=== PATIENT | female | born 1935 | race Caucasian/White ===

== ENCOUNTER → 2018-06-18 | Day surgery (SDC) | payer MEDICARE, BC ==
[2018-06-17 16:21] LABS: BASOPHILS # (AUTO) 0.1 (0.0-0.1); BASOPHILS % 0.8 % (0.0-1.0); EOSINOPHILS # (AUTO) 0.2 (0.0-0.4); EOSINOPHILS % 3.4 % (0.0-6.0); HEMATOCRIT 41.2 % (34.2-44.1); HEMOGLOBIN 13.6 g/dL (12.0-16.0); LYMPHOCYTES # (AUTO) 2.7 (1.0-3.2); LYMPHOCYTES % 37.3 % (18.0-39.1); MEAN CORPUSCULAR HEMOGLOBIN 32.1 pg (28-32); MEAN CORPUSCULAR VOLUME 97.2 fL (81-99); MONOCYTES # (AUTO) 0.6 (0.2-0.8); MONOCYTES % 8.5 % (4.4-11.3); NEUTROPHILS # (AUTO) 3.5 (2.1-6.9); NEUTROPHILS % 49.6 % (38.7-80.0); PLATELET COUNT 247 x10e3/uL (140-360); RED BLOOD COUNT 4.24 x10e6/uL (3.6-5.1); RED CELL DISTRIBUTION WIDTH 12.6 % (11.7-14.4)
[~2018-06-18] MED LIST: ADVAIR 100-501 EACH INH; ASPIR 8181 MG PO; CALCIUM ACETAT667 MG PO; CO Q-10100 MG PO; LIDOCAINE HCL 2% LOCAL INJ 5 ML SDV VIAL INJ ONE; LIPITOR20 MG PO; MAGNESIUM OXID400 MG PO; METOPROLOL SUCC25 MG PO; MULTI-VITAMIN1 EACH PO; PEPCID AC20 MG PO; POTASSIUM GLUC500 GM PO; PRILOSEC OTC20 MG PO; PROPOFOL IV EMULSION 10 MG/ML 20 ML VIAL ONE; RESTASIS1 EACH OP; SPIRIVA18 MCG INH; VIT B12 PO; VIT D3 PO; ZYRTEC10 MG PO
--- OUTSIDE RECORDS SUMMARY | 2018-06-18 05:47 | XMS REPORT | Clinical Summary ---
Author Author MELQUIADES Lucky Pai Organization [facility] Lucky Pai Address Unknown Phone Unavailable Care Team Providers Care Annealing Operator Name Role Phone Delfin Camryn PCP Allergies Comments Active Allergy Reactions Severity Noted Date Codeine 08/18/2014 Medications End Date Status Medication Sig Dispensed Refills Start Date Active esomeprazole (NEXIUM) 40 Take 40 mg by 0 MG capsule mouth daily. Active CALCIUM CARBONATE/VITAMIN Take by mouth 0 D3 (CALTRATE 600 + D daily. 2 ORAL) tablets Active aspirin 81 MG EC tablet Take 81 mg by 0 mouth daily. Active omega-3 fatty Take by mouth 0 acids-vitamin E 1,000 mg daily. Cap Active cetirizine (ZYRTEC) 10 MG Take 10 mg by 0 tablet mouth daily as needed for Allergies. Active multivitamin per tablet Take 1 tablet 0 by mouth daily. Active b complex vitamins Take 1 0 capsule capsule by mouth daily. Active ERGOCALCIFEROL, VITAMIN Take by mouth 0 D2, (VITAMIN D2 ORAL) daily. Active Missing or Non-Formulary Align 0 Medication probiotic- daily Active Problems Problem Noted Date Former smoker: quit 01/201409/15/2014 History of gastroesophageal reflux (GERD) 09/15/2014 History of hyperlipidemia 09/15/2014 S/P AAA repair in 200709/15/2014 Chronic back pain 09/15/2014 Leukocytosis 09/15/2014 Volume overload 09/15/2014 Aortic stenosis: S/P AVR with # 21 stj trifecta tisue valve on 09/01/14 09/01/2014 CAD (coronary artery disease) 08/31/2014 Encounters Care Team Description Date Type Specialty Roland Pacheco MD Chronic obstructive pulmonary disease, unspecified COPD type (HCC) 03/06/2018 Hospital Cardiology Encounter Roland Pacheco MD Chronic obstructive pulmonary disease, unspecified COPD type (HCC) (Primary Dx) 03/01/2018 Outside Orders Central Scheduling after 06/17/2017 Family History Medical History Relation Name Comments Cancer Father Heart disease Mother Relation Name Status Comments Brother suicide (Age 50) Father Mother CHF (Age 80) Sister Breast cancer (Age 52) Social History Date Tobacco Use Types Packs/Day Years Used Former Smoker 2 40 Alcohol Use Drinks/Week oz/Week Comments Yes sociall Sex Assigned at Date Recorded Not on file Industry Job Start Date Occupation Not on file Not on file Not on file Travel End Travel History Travel Start No recent travel history available. Last Filed Vital Signs Time Taken Vital Sign Reading 03/06/2018 4:06 PM CDT Blood Pressure 162/60 03/06/2018 4:06 PM CDT Pulse 99 - Temperature - 03/06/2018 4:04 PM CDT Respiratory Rate 15 - Oxygen Saturation - - Inhaled Oxygen - Concentration 03/06/2018 3:00 PM CDT Weight 75.3 kg (166 lb) - Height - 03/06/2018 3:00 PM CDT Body Mass Index 29.41 Plan of Treatment Health Maintenance Due Date Last Done Comments INFLUENZA VACCINE 04/08/2018 Implants Device Identifier Shelf Expiration Date Model / Serial / Lot Implanted Type Area Manufactur er 05/08/2019 [id number] / / [id number] Sternal Zipfix,With Needle Sterile Cardiovasc N/A: Chest SYNTHES Pack Of 20 - [id number] [employer] Implanted: Qty: 1 on 09/01/2014 by Castillo Lopez MD 04/07/2019 [id number] / / [id number] [place],Ptfe 1 X 6" - [id number] Graft/Patc N/A: Chest BARD Implanted: Qty: 1 on 09/01/2014 by h VASCULAR Castillo Lopez MD 03/28/2016 TF-[id number] / [id number] / Valve,Trifecta 21mm Tissue Aortic Valves N/A: Heart ST SAJI Supra Annular Stented Titanium Strl MEDICAL - [id number] Implanted: Qty: 1 on 09/01/2014 by Castillo Lopez MD Procedures Comments Procedure Name Priority Date/Time Associated Diagnosis PERIPHERAL VASCULAR 03/07/2018 REPORT - SCAN 8:30 AM CDT STRESS ECHO W/ TRACING Routine 03/06/2018 Chronic obstructive W/O CONTRAST 3:07 PM CDT pulmonary disease, unspecified COPD type (HCC) after 06/17/2017 Results * PERIPHERAL VASCULAR REPORT - SCAN (03/07/2018 8:30 AM CDT) Narrative Performed At * Stress Echo with Tracing without Contrast (03/06/2018 3:07 PM CDT) Ejection Fraction [facility] Narrative Performed At Stress Echocardiography Report [facility] Demographics [facility] Patient Name Lizz VALERIO of Study 03/06/2018 VICENTE [id number] Female Visit Number [id number] Room Number Number Date of Birth1935Referring Physician Junior Meyer Age82 year(s)Disk Recoater Juan Pablo Ham Interpreting Pooja Anders, Physician Fellow SAMRA Giron Procedure Type of Study Stress procedure:STRESS ECHO/PHARM W/DOP&TRAC (Routine) Indications:Acute Chest Pain/ Suspected CAD. Clinical History AVR 09/01/2014 TRIFECTA 21 MM AAA REPAIR 2007 Contrast Medium: Definity. Height: 63 inches Weight: 75.3 kg (166 lbs) BSA: 1.79 m^2 BMI: 29.41 kg/m^2 HR: 69 bpm BP: 118/54 mmHg Rest ECG NSR Standing HR:73 bpmStanding BP:118/54 mmHg Stress Stress Type: Pharmacologic Peak HR: 144 bpm HR BP Product: [id number] Peak BP: 118/54 mmHg Predicted HR: 139 bpm % of predicted HR: 104 Test Duration: 7:35 min Reason for Termination: Target heart rate Stress Interpretation STRESS ECHO. At rest there is normal wall motion with globally preserved ejection fraction There is augmentation of contractility in all segments at mid and peak stress Negative stress echocardiogram. Results Global LVEF (rest): Normal (LVEF >50%) Global LVEF (stress): Hyperkinetic (LVEF >70%) ECG ST elevation in aVR, ST depressions in the high lateral and precordial leads Arrhythmias Occasional PVC's Symptoms Sensation of needing to burp, no chest pain, indigestion/heart burn, or dyspnea. Signature Procedure Note Interface, External Ris In - 03/06/2018 9:16 PM CDT Stress Echocardiography Report Demographics Patient Name CHRISTIANO VALERIO Date of Study 03/06/2018 VICENTE Gender Female Visit Number [id number] Race Unknown Room Number Number Date of 1935 Referring Physician Junior Meyer Age 82 year(s) Disk Recoater Juan Pablo Ham Interpreting Pooja Anders, Physician Fellow SAMRA Giron Procedure Type of Study Stress procedure:STRESS ECHO/PHARM W/DOP&TRAC (Routine) Indications:Acute Chest Pain/ Suspected CAD. Clinical History AVR 09/01/2014 TRIFECTA 21 MM AAA REPAIR 2007 Contrast Medium: Definity. Height: 63 inches Weight: 75.3 kg (166 lbs) BSA: 1.79 m^2 BMI: 29.41 kg/m^2 HR: 69 bpm BP: 118/54 mmHg Rest ECG NSR Standing HR:73 bpmStanding BP:118/54 mmHg Stress Stress Type: Pharmacologic Peak HR: 144 bpm HR BP Product: [id number] Peak BP: 118/54 mmHg Predicted HR: 139 bpm % of predicted HR: 104 Test Duration: 7:35 min Reason for Termination: Target heart rate Stress Interpretation STRESS ECHO. At rest there is normal wall motion with globally preserved ejection fraction There is augmentation of contractility in all segments at mid and peak stress Negative stress echocardiogram. Results Global LVEF (rest): Normal (LVEF >50%) Global LVEF (stress): Hyperkinetic (LVEF >70%) ECG ST elevation in aVR, ST depressions in the high lateral and precordial leads Arrhythmias Occasional PVC's Symptoms Sensation of needing to burp, no chest pain, indigestion/heart burn, or dyspnea. Signature Performing Organization Address City/State/Zipcode Phone Number [facility] after 06/17/2017 Insurance Payer Benefit Subscriber ID Type Phone Address Plan / Group MEDICARE MEDICARE A xxxxxxxxxx Medicare B BLUE CROSS/BLUE SHIELD BCBS xxxxxxxxxxxx PPO [phone] [address] [place] [address] ID OS Advance Directives Patient has advance care planning documents, and code status on file. For more i nformation, please contact: [facility] [address] [place] [address] Date Inactivated Comments Code Status Date Activated 09/25/2014 1:45 PM Full Code 09/01/2014 9:53 AM This code status was determined by: Patient 09/01/2014 9:53 AM Full Code 08/31/2014 6:06 PM This code status was determined by: Patient 08/31/2014 6:06 PM Full Code 08/31/2014 9:37 AM This code status was determined by: Patient
--- OUTSIDE RECORDS SUMMARY | 2018-06-18 05:49 | XMS REPORT | Continuity of Care Document ---
Author Author [facility] Interface Address Unknown Phone Unavailable Problems Problem Status Onset Date Classification Date Reported Comments Source DX: K30/R14.2/E66.3/Z71.3 Active 02/18/2018 [facility] I26.99 Active 12/18/2017 [facility] M79.89 Active 12/13/2017 [facility] Abnormal findings on diagnostic imaging of other parts of digestive tract 08/18/2017 11/21/2017 [facility] DX: R10.32=LEFT LOWER QUADRANT PAIN, R93 Active 08/10/2017 [facility] SIGMOID DIVERTICULITIS Active 07/04/2017 [facility] BACK PAIN Active 07/04/2017 [facility] ACUTE BRONCHITIS WITH COPD Active 04/27/[address] [facility] [address] SENT- SOB Active 04/27/2017 [facility] DX; ROUTINE SCREENING Active 08/15/2016 [facility] L HAND WEAKNESS Active 04/15/2016 [facility] ARM PAIN Active 04/15/2016 [facility] RIGHT CALF PAIN Active 03/23/2016 [facility] UNK Active 09/30/2014 [facility] 786.2/518.0 Active 09/30/2014 [facility] 518.0 ATELECTASIS Active 09/29/2014 [facility] CCL/11AM/R Active 08/10/2014 [facility] ROUTINE Active 06/16/2014 [facility] 441.4 AAA, 447.9 CAROTID ARTERY DISEASE Active 03/07/2013 [facility] Osteopenia Active Problem 05/07/2018 [facility] Depression, unspecified depression type Active Problem 05/07/2018 [facility] Prediabetes Active Problem 05/07/2018 [facility] Chronic obstructive pulmonary disease, unspecified COPD type Active Problem 05/07/2018 [facility] Gastroesophageal reflux disease, esophagitis presence not specified Active Problem 05/07/2018 [facility] Bilateral carotid artery disease Active Problem 05/07/2018 [facility] History of abdominal aortic aneurysm Active Problem 05/07/2018 [facility] History of aortic valve repair Active Problem 05/07/2018 [facility] Dry eyes Active Problem 05/07/2018 [facility] Dependent edema Active Problem 05/07/2018 [facility] Rheumatoid arthritis Active Problem 05/07/2018 [facility] Esophageal reflux Active Problem 05/07/2018 [facility] Nicotine dependence in remission Active Problem 05/07/2018 [facility] Aortic aneurysm Active Problem 05/07/2018 [facility] Other and unspecified hyperlipidemia Active Problem 05/07/2018 [facility] Systolic murmur Active Problem 05/07/2018 [facility] Vitamin D deficiency Active Problem 05/07/2018 [facility] Carotid artery disease Active Problem 05/07/2018 [facility] Elevated brain natriuretic peptide level Active Diagnosis 05/01/2017 [facility] Abnormality of heart beat Active Diagnosis 05/01/2017 [facility] Tachycardia Active Diagnosis 05/01/2017 [facility] Orthostatic hypotension Active Diagnosis 05/01/2017 [facility] Hypertriglyceridemia Active Problem 05/07/2018 [facility] Shortness of breath Active Diagnosis 05/11/2017 [facility] Bronchitis Active Diagnosis 05/07/2018 [facility] H/O aortic valve replacement Active Problem 05/07/2018 [facility] Osteopenia, unspecified location Active Diagnosis 10/18/2016 [facility] Painful urination Active Diagnosis 10/18/2016 [facility] History of pulmonary embolism Active Problem 05/07/2018 [facility] Coronary artery disease involving apache coronary artery of apache heart without angina pectoris Active Problem 05/07/2018 [facility] Other osteoarthritis involving multiple joints Active Problem 05/07/2018 [facility] Other pulmonary embolism without acute cor pulmonale, unspecified chronicity Active Diagnosis 09/04/2017 [facility] Cough Active Diagnosis 02/22/2017 [facility] Chronic seasonal allergic rhinitis, unspecified trigger Active Diagnosis 08/16/2017 [facility] Leg swelling Active Diagnosis 12/28/2017 [facility] Hematoma Active Diagnosis 12/28/2017 [facility] Other acute pulmonary embolism without acute cor pulmonale Active Diagnosis 08/16/2017 [facility] Hospital discharge follow-up Active Diagnosis 05/11/2017 [facility] Abnormal ultrasound of carotid artery Active Diagnosis 03/23/2018 [facility] Hyperlipemia Active Problem 12/10/2014 [facility] Osteopenia Active Problem 12/10/2014 [facility] AAA Active Problem 06/16/2014 [facility] GERD Active Problem 12/10/2014 [facility] Carotid artery disease Active Problem 12/10/2014 [facility] SOB Active Diagnosis 06/16/2014 [facility] Vitamin d deficiency Active Problem 12/10/2014 [facility] Acute bronchitis Active Diagnosis 06/16/2014 [facility] Cough Active Diagnosis 06/16/2014 [facility] Systolic murmur Active Problem 12/10/2014 [facility] Encounter for screening mammogram for malignant neoplasm of breast Active Diagnosis 06/16/2014 [facility] History of abdominal aortic aneurysm Active Problem 04/26/2016 [facility] History of repair of aneurysm of abdominal aorta Active Problem 04/26/2016 [facility] H/O aortic valve replacement Active Problem 04/26/2016 [facility] BMI 27.0-27.9,adult Active Diagnosis 08/18/2015 [facility] 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 Active Diagnosis 08/18/2015 [facility] BSOM Active Diagnosis 08/18/2015 [facility] Normal body mass index Active Diagnosis 08/04/2016 [facility] Aortic aneurysm Active Problem 12/10/2014 [facility] Former smoker Active Problem 12/10/2014 [facility] URI Active Diagnosis 12/10/2014 [facility] Acute exacerbation of chronic obstructive pulmonary disease Active Diagnosis 12/10/2014 [facility] Aortic stenosis Active Diagnosis 08/06/2014 [facility] Routine general medical examination at a health care facility Active Diagnosis 07/02/2014 [facility] Menopausal and postmenopausal disorder Active Diagnosis 07/02/2014 [facility] Right knee pain Active Diagnosis 03/28/2016 [facility] Right calf pain Active Diagnosis 03/28/2016 [facility] Lung crackles Active Diagnosis 03/28/2016 [facility] Radial nerve palsy, left Active Diagnosis 04/26/2016 [facility] Osteoarthritis, knee Active Diagnosis 03/29/2016 [facility] Sciatica Active Diagnosis 03/29/2016 [facility] History of aortic aneurysm Active Diagnosis 09/15/2016 [facility] BMI 29.0-29.9,adult Active Diagnosis 08/04/2016 [facility] Routine general medical examination at a health care facility Active Diagnosis 08/04/2016 [facility] Menopausal and postmenopausal disorder Active Diagnosis 08/04/2016 [facility] Aortic valve disorder Resolved Problem 12/28/2017 [facility] COPD - Chronic obstructive pulmonary disease Resolved Problem 12/28/2017 [facility] Hypertension Resolved Problem 12/28/2017 [facility] Deviated septum Resolved Problem 12/28/2017 [facility] RA (<span ID="[id number]">Confirmed</span>) Resolved Problem 12/28/2017 [facility] Overweight 11/21/2017 [facility] Body mass index 29.0-29.9, adult 11/21/2017 [facility] Dietary counseling and surveillance 11/21/2017 [facility] Left lower quadrant pain 11/21/2017 [facility] 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 11/21/2017 [facility] Atelectasis 11/21/2017 [facility] Fatty liver, not elsewhere classified 11/21/2017 [facility] Atherosclerotic heart disease of apache coronary artery without angina pectoris 11/21/2017 [facility] Functional disorders of polymorphonuclear neutrophils 11/21/2017 [facility] Diverticulosis of large intestine without perforation or abscess without bleeding 11/21/2017 [facility] Acquired absence of both cervix and uterus 11/21/2017 [facility] Collapsed vertebra, not elsewhere classified, thoracic region, initial encounter for fracture 11/21/2017 [facility] Other specified disorders of bone density and structure, unspecified site 11/21/2017 [facility] Other spondylosis, thoracic region 11/21/2017 [facility] Unspecified atherosclerosis 11/21/2017 [facility] SCREEN MAMMOGRAM NEC Active [facility] ABDOM AORTIC ANEURYSM Active [facility] ARTERIAL DISEASE NOS Active [facility] PULMONARY COLLAPSE Active [facility] COUGH Active [facility] PAIN IN RIGHT LOWER LEG Active [facility] 491.21 Active [facility] OBS CHR BRONC W(AC) EXAC Active [facility] ORTHOPNEA Active [facility] WEAKNESS Active [facility] CHRONIC OBSTRUCTIVE PULMON DISEASE W ACU Active [facility] ENCNTR SCREEN MAMMOGRAM FOR MALIGNANT NE Active [facility] DVTRCLI OF LG INT W/O PERFORATION OR ABS Active [facility] LEFT LOWER QUADRANT PAIN Active [facility] LOCALIZED SWELLING, MASS AND LUMP, LEFT Active [facility] OTHER PULMONARY EMBOLISM WITHOUT ACUTE C Active [facility] FUNCTIONAL DYSPEPSIA Active [facility] ERUCTATION Active [facility] DIETARY COUNSELING AND SURVEILLANCE Active [facility] Medications Medication Details Route Status Patient Instructions Ordering Provider Order Date Source Levaquin 1 tablet Orally Active 500 mg Orally once a day Ghebranious 04/30/2018 [facility] Amoxicillin-Pot Clavulanate 1 tablet Orally Active 875-125 MG Orally every 12 hrs Gagan 12/13/2017 [facility] Omnipaque 300 100 mL, Route: IV, Drug Form: ZAINA INFANTE, Start date: 08/15/17 12:00:00 [employer], Duration: 1 doses or timesNotes: (Same as:Omnipaque 300). WASTE: F/P - Black; E - [employer] Trash Bin Active 08/15/2017 [facility] Spiriva HandiHaler 1 capsule Inhalation Active 18 MCG Inhalation Once a day Josiasebranious 07/27/2017 [facility] Spiriva HandiHaler 1 capsule Inhalation Active 18 MCG Inhalation Once a day Luis Fernando Cruz 07/27/2017 [facility] Cipro 500 mg, 1 tab, Route: PO, Drug form: TAB, [id number], Start date: 07/06/17 16:00:00 [employer], Duration: 3 day, Stop date: 07/09/17 4:00:00 [employer], ABX Indication: Intra-abdominal InfectionNotes: May interfere w/enteral feedings - Take 1 hr before or 2 hrs after antacids, dairy pdt & minerals. On empty stomach. Inactive 07/06/2017 [facility] Flagyl 500 mg, 1 tab, Route: PO, Drug form: TAB, [id number], Start date: 07/06/17 16:00:00 [employer], Duration: 2 day, Stop date: 07/08/17 8:00:00 [employer], ABX Indication: Intra-abdominal InfectionNotes: (Same as: Flagyl) Take with food/ avoid alcohol Inactive 07/06/2017 [facility] Metronidazole 500 MG Oral Tablet [Flagyl] 500 mg=1 tab, PO, Q8H, X 7 day, # 21 tab, 0 Refill(s), Pharmacy: [facility]/pharmacy #[id number] Active 07/06/2017 [facility] Ciprofloxacin 500 MG Oral Tablet [Cipro] 500 mg=1 tab, PO, Q12H, X 7 day, # 14 tab, 0 Refill(s), Pharmacy: [facility]/pharmacy #[id number] Active 07/06/2017 [facility] Phenergan 12.5 mg, 1 tab, Route: PO, Drug form: TAB, Q6H, Dosing Weight 76.534, kg, PRN Nausea & Vomiting, Start date: 07/05/17 14:16:00 [employer], Duration: 30 day, Stop date: 08/04/17 14:15:00 CSTNotes: (Same as: Phenergan) No Longer Active 07/05/2017 [facility] metoprolol extended release 25 mg, 1 tab, Route: PO, Drug form: ERTAB, Daily, Start date: 07/05/17 9:00:00 [employer], Duration: 30 day, Stop date: 08/03/17 9:00:00 CSTNotes: (Same as: Toprol XL) Do Not Crush No Longer Active 07/05/2017 [facility] Escitalopram 10 mg, 1 tab, Route: PO, Drug form: TAB, Daily, Dosing Weight 76.534, kg, Start date: 07/05/17 9:00:00 [employer], Duration: 30 day, Stop date: 08/03/17 9:00:00 CSTNotes: (Same as: Lexapro) No Longer Active 07/05/2017 [facility] Cipro 400 mg, 200 mL, Route: IVPB, Drug form: INJ, [id number], Dosing Weight 77, kg, Start date: 07/05/17 3:00:00 [employer], Duration: 5 day, Stop date: 07/09/17 15:00:00 [employer], ABX Indication: Intra-abdominal InfectionNotes: Do not refrigerate No Longer Active 07/05/2017 [facility] Flagyl 500 mg, 100 mL, Route: IVPB, Drug form: INJ, [id number], Dosing Weight 77, kg, Start date: 07/04/17 22:00:00 [employer], Duration: 5 day, Stop date: 07/09/17 14:00:00 [employer], ABX Indication: Intra-abdominal InfectionNotes: (Same as: Flagyl) Avoid alcohol. No Longer Active 07/05/2017 [facility] Xarelto 20 mg, 2 tab, Route: PO, Drug form: TAB, QPM, Dosing Weight 76.534, kg, Start date: 07/04/17 21:00:00 [employer], Stop date: 08/03/17 17:00:00 CSTNotes: (Same as: Xarelto) Do Not Crush No Longer Active 07/05/2017 [facility] Lipitor 20 mg, 2 tab, Route: PO, Drug form: TAB, Bedtime, Dosing Weight 76.534, kg, Start date: 07/04/17 21:00:00 [employer], Duration: 30 day, Stop date: 08/02/17 21:00:00 CSTNotes: (Same As: Lipitor) No Longer Active 07/05/2017 [facility] Melatonin 3 MG Extended Release Tablet 3 mg, 1 tab, Route: PO, Drug Form: TAB, Dosing Weight 76.534, kg, Bedtime, PRN Sleep, Start date: 07/04/17 20:03:00 [employer], Duration: 30 day, Stop date: 08/03/17 20:02:00 CSTNotes: (Same as: Melatonin) No Longer Active 07/05/2017 [facility] normal saline 0.9% IV 1,000 mL 1,000 mL, Rate: 100 ml/hr, Infuse over: 10 hr, Route: IV, Dosing Weight 76.534 kg, Total Volume: 1,000, Start date: 07/04/17 18:27:00 [employer], Duration: 30 day, Stop date: 08/03/17 18:26:00 [employer], 1.87, m2 No Longer Active 07/05/2017 [facility] Ondansetron 4 mg, 2 mL, Route: IVP, Drug form: INJ, Q6H, Dosing Weight 77, kg, PRN Nausea & Vomiting, Start date: 07/04/17 16:15:00 [employer], Duration: 30 day, Stop date: 08/03/17 16:14:00 CSTNotes: (Same as: Zofran) MEDICATION WASTE Product Size: 4 mg Product Wasted: ___ mg No Longer Active 07/04/2017 [facility] Morphine 2 mg, 2 mL, Route: IVP, Drug form: SOLN, Q4H, Dosing Weight 77, kg, PRN Pain Score 7-10, Start date: 07/04/17 16:15:00 [employer], Duration: 30 day, Stop date: 08/03/17 16:14:00 CSTNotes: Preservative free. (Same as: Morphine Sulfate-PF) No Longer Active 07/04/2017 [facility] Flagyl 500 mg, 1 tab, Route: PO, Drug form: TAB, ONCE, Dosing Weight 77, kg, Priority: STAT, Start date: 07/04/17 13:50:00 [employer], Stop date: 07/04/17 13:50:00 [employer], ABX Indication: BacteremiaNotes: (Same as: Flagyl) Take with food/ avoid alcohol Inactive 07/04/2017 [facility] Ciprofloxacin 400 mg, 200 mL, Route: IVPB, Drug form: INJ, ONCE, Dosing Weight 77, kg, Priority: STAT, Start date: 07/04/17 13:50:00 [employer], Stop date: 07/04/17 13:50:00 [employer], ABX Indication: BacteremiaNotes: Do not r efrigerate Inactive 07/04/2017 [facility] Saline Flush 0.9% 10 mL, Route: IVP, Drug Form: INJ, Dosing Weight 75, kg, PRN, PRN Line Flush, Start date: 07/04/17 10:45:00 [employer], Duration: 30 day, Stop date: 08/03/17 10:44:00 CSTNotes: (Same as: BD Posiflush) No Longer Active 07/04/2017 [facility] Xarelto 1 tablet by mouth Active 20 mg by mouth Once a day Luis Fernando Cruz 05/08/2017 [facility] Xarelto 1 tablet by mouth Active 20 mg by mouth Once a day Gagan 05/08/2017 [facility] pneumococcal capsular polysaccharide type 1 vaccine / pneumococcal capsular polysaccharide type 10A vaccine / pneumococcal capsular polysaccharide type 11A vaccine / pneumococcal capsular polysaccharide type 12F vaccine / pneumococcal capsular polysacchar 0.5 mL, Route: IM, Drug Form: INJ, Daily, Start date: 04/30/17 15:53:00 CDT, Duration: 1 doses or times, Stop date: 04/30/17 15:53:00 CDTNotes: (Same as: Pneumovax 23) Refrigerate Inactive 04/30/2017 [facility] rivaroxaban 15 MG Oral Tablet [Xarelto] 15 mg=1 tab, PO, Q12H, # 42, 0 Refill(s) Active 04/30/2017 [facility] rivaroxaban 15 MG Oral Tablet [Xarelto] 15 mg=1 tab, PO, Q12H, # 42 tab, 0 Refill(s) Inactive 04/30/2017 [facility] Xarelto 15 mg, 1 tab, Route: PO, Drug form: TAB, Q12H, Dosing Weight 75, kg, Start date: 04/30/17 9:00:00 CDT, Duration: 30 day, Stop date: 05/29/17 21:00:00 CSTNotes: (Same as: Xarelto) Administer with food Inactive 04/30/2017 [facility] Spiriva 18 microgram, 1 inhalation, Route: INHALATION, Drug form: CAP, Daily, Dosing Weight 75, kg, Start date: 04/29/17 9:00:00 CDT, Duration: 30 day, Stop date: 05/28/17 9:00:00 CSTNotes: (Same As: Spiriva). No Longer Active 04/29/2017 [facility] Prilosec 40 mg, Route: PO, Drug form: TAB, Daily, Dosing Weight 75, kg, Start date: 04/29/17 9:00:00 CDT, Duration: 30 day, Stop date: 05/28/17 9:00:00 [employer] No Longer Active 04/29/2017 [facility] Protonix 40 mg, 1 tab, Route: PO, Drug form: ECTAB, Daily, Start date: 04/29/17 9:00:00 CDT, Duration: 30 day, Stop date: 05/28/17 9:00:00 CSTNotes: Tablet should not be chewed or crushed. (Same as: Protonix) No Longer Active 04/29/2017 [facility] 24 HR Metoprolol Tartrate 25 MG Extended Release Tablet [Toprol] 25 mg, 1 tab, Route: PO, Drug form: ERTAB, Daily, Start date: 04/29/17 9:00:00 CDT, Duration: 30 day, Stop date: 05/28/17 9:00:00 CSTNotes: (Same as: Toprol XL) Do Not Crush No Longer Active 04/29/2017 [facility] Magnesium Oxide 400 mg, 1 tab, Route: PO, Drug form: TAB, Daily, Dosing Weight 75, kg, Start date: 04/29/17 9:00:00 CDT, Duration: 30 day, Stop date: 05/28/17 9:00:00 CSTNotes: (Same as: Mag-Ox 400) Magnesium oxide [id number] elemental magnesium Dose=____mg magnesium oxide (___mg elemental magnesium) No Longer Active 04/29/2017 [facility] Furosemide 40 MG Oral Tablet 40 mg, 1 tab, Route: PO, Drug form: TAB, Daily, Dosing Weight 75, kg, Start date: 04/29/17 9:00:00 CDT, Duration: 30 day, Stop date: 05/28/17 9:00:00 CSTNotes: (Same as: Lasix) May cause GI upset. Give with food or milk. No Longer Active 04/29/2017 [facility] Escitalopram 10 mg, 1 tab, Route: PO, Drug form: TAB, Daily, Dosing Weight 75, kg, Start date: 04/29/17 9:00:00 CDT, Duration: 30 day, Stop date: 05/28/17 9:00:00 CSTNotes: (Same as: Lexapro) No Longer Active 04/29/2017 [facility] aspirin 81 mg tablet, enteric coated 81 mg, 1 tab, Route: PO, Drug form: ECTAB, Daily, Dosing Weight 75, kg, Start date: 04/29/17 9:00:00 CDT, Duration: 30 day, Stop date: 05/28/17 9:00:00 CSTNotes: Do not crush or chew. (Same As: Ecotrin) No Longer Active 04/29/2017 [facility] Lipitor 20 mg, 2 tab, Route: PO, Drug form: TAB, Bedtime, Dosing Weight 75, kg, Start date: 04/28/17 21:00:00 CDT, Duration: 30 day, Stop date: 05/27/17 21:00:00 CSTNotes: (Same As: Lipitor) No Longer Active 04/29/2017 [facility] Mucinex DM 1 tab, Route: PO, Drug Form: ERTAB, Dosing Weight 75, kg, Q12H, Start date: 04/28/17 21:00:00 CDT, Duration: 30 day, Stop date: 05/28/17 9:00:00 CSTNotes: (Same as: Guaifenex DM) "Do Not Crush" No Longer Active 04/29/2017 [facility] Levaquin 500 mg, 2 tab, Route: PO, Drug form: TAB, [id number], Dosing Weight 75, kg, Start date: 04/28/17 17:00:00 CDT, Stop date: 04/30/17 17:00:00 CDT, ABX Indication: Other (specify in Comments)Notes: Do not give w/antacids, dairy pdt & minerals Take 1 hr before or 2 hr after dairy pdt (Same as:Levaquin) No Longer Active 04/28/2017 [facility] potassium chloride 20 mEq oral tablet, extended release 20 mEq, 1 tab, Route: PO, Drug form: ERTAB, BID, Dosing Weight 75, kg, Start date: 04/28/17 17:00:00 CDT, Duration: 30 day, Stop date: 05/28/17 9:00:00 CSTNotes: (Same as: K-Dur 20) "Do Not Crush" With food and full glass of water No Longer Active 04/28/2017 [facility] Advair Diskus 250 mcg-50 mcg inhalation powder 1 puff, Route: INHALATION, Drug Form: AERO, Dosing Weight 75, kg, BID, Start date: 04/28/17 17:00:00 CDT, Duration: 30 day, Stop date: 05/28/17 9:00:00 [employer] Inactive 04/28/2017 [facility] budesonide-formoterol 160 mcg-4.5 mcg/inh inhalation aerosol with adapter 2 inhalation, Route: INHALATION, Drug Form: AERO/A, BID, Start date: 04/28/17 17:00:00 CDT, Duration: 30 day, Stop date: 05/28/17 9:00:00 CSTNotes: (Same as: Symbicort) WASTE: Aerosol - Return to Pharmacy No Longer Active 04/28/2017 [facility] Ipratropium [place] 0.2 MG/ML Inhalant Solution 500 microgram, 2.5 mL, Route: NEB, Drug form: SOLN, RBID, Dosing Weight 75, kg, PRN Wheezing, Start date: 04/28/17 11:43:00 CDT, Duration: 30 day, Stop date: 05/28/17 11:42:00 CSTNotes: SEE RT DOCUMENTATION (Same as:Atrovent) No Longer Active 04/28/2017 [facility] Heparin 40 unit/kg Bolus (Heparin Dosing Weight) Route: IVP, PRN, 2,400 unit, 2.4 mL, Drug form: INJ, PRN, Heparin Protocol, Start date: 04/28/17 3:08:00 CDT Stop date: 05/28/17 2:07:00 [employer], 30 day No Longer Active 04/28/2017 [facility] heparin additive 25,000 unit [18 unit/kg/hr] + Premix Diluent Dextrose 5% 500 mL 500 mL, Rate: 21.6 ml/hr, Infuse over: 23.1 hr, Route: IV, Dosing Weight 60 kg, Total Volume: 500 mL, Start date: 04/28/17 3:08:00 CDT, Duration: 30 day, Stop date: 05/28/17 3:07:00 [employer]ATED [employer] No Longer Active 04/28/2017 [facility] Heparin 80 unit/kg Bolus (Heparin Dosing Weight) Route: IVP, PRN, 4,800 unit, 4.8 mL, Drug form: INJ, PRN, Heparin Protocol, Start date: 04/28/17 3:08:00 CDT Stop date: 05/28/17 2:07:00 VENTILATED RIB FITTER, 30 day No Longer Active 04/28/2017 [facility] Heparin - one time bolus for DVT/PE 4,800 unit, 4.8 mL, Route: IVPB, Drug form: INJ, ONCE, Dosing Weight 75, kg, Start date: 04/28/17 3:06:00 CDT, Stop date: 04/28/17 3:06:00 CDT Inactive 04/28/2017 [facility] Morphine 2 mg, 1 mL, Route: IVP, Drug form: SOLN, Q4H, Dosing Weight 75, kg, PRN Pain Score 7-10, Start date: 04/28/17 2:14:00 CDT, Duration: 30 day, Stop date: 05/28/17 2:13:00 VENTILATED RIB FITTER No Longer Active 04/28/2017 [facility] Ondansetron 4 mg, 2 mL, Route: IVP, Drug form: INJ, Q6H, Dosing Weight 75, kg, PRN Nausea & Vomiting, Start date: 04/28/17 2:14:00 CDT, Duration: 30 day, Stop date: 05/28/17 2:13:00 CSTNotes: (Same as: Kelly) MEDICATION WASTE Product Size: 4 mg Product Wasted: ___ mg No Longer Active 04/28/2017 [facility] Lasix 20 mg, Route: IVP, Drug form: INJ, ONCE, Dosing Weight 75, kg, Priority: STAT, Start date: 04/27/17 22:44:00 CDT, Stop date: 04/27/17 22:44:00 CDT Inactive 04/28/2017 [facility] Albuterol 0.833 MG/ML / Ipratropium [place] 0.167 MG/ML Inhalant Solution [DuoNeb] 3 ml, Route: NEB, Drug Form: SOLN, Dosing Weight 75, kg, PRN, PRN Respiratory Protocol, Start date: 04/27/17 22:44:00 CDT, Duration: 30 day, Stop date: 05/27/17 21:43:00 CSTNotes: (Same as: Duoneb) No Longer Active 04/28/2017 [facility] Solu-Medrol 60 mg, Route: IVP, ONCE, Dosing Weight 75, kg, Priority: STAT, Start date: 04/27/17 22:43:00 CDT, Stop date: 04/27/17 22:43:00 CDT Inactive 04/28/2017 [facility] Levaquin 1 tablet Orally Active 500 mg Orally Once a day [facility] 04/24/2017 [facility] Levaquin 1 tablet Orally Active 500 MG Orally Once a day [facility] 02/15/2017 [facility] Macrodantin 1 capsule with food or milk Orally Active 100 MG Orally twice a day (bid) [facility] 10/19/2016 [facility] Cipro 1 tablet Orally Active 250 MG Orally every 12 hrs [facility] Fernando [facility] 10/04/2016 [facility] pneumococcal 13-valent vaccine 0.5 mL, Route: IM, Drug Form: INJ, Daily, Start date: 04/17/16 9:00:00 CDT, Duration: 1 doses or times, Stop date: 04/17/16 9:00:00 CDTNotes: Lightly roll vial (DO NOT SHAKE) before administration. (Same as: Prevnar 13) No Longer Active 04/17/2016 [facility] Aspirin 325 MG Enteric Coated Tablet 325 mg, Route: PO, Drug form: ECTAB, Daily, Dosing Weight 67.727, kg, Start date: 04/16/16 9:00:00 CDT, Duration: 30 day, Stop date: 05/15/16 9:00:00 VENTILATED RIB FITTER No Longer Active 04/16/2016 [facility] Spiriva 18 microgram, 1 inhalation, Route: INHALATION, Drug form: CAP, Daily, Dosing Weight 67.727, kg, Start date: 04/16/16 9:00:00 CDT, Duration: 30 day, Stop date: 05/15/16 9:00:00 CSTNotes: (Same As: Spiriva). No Longer Active 04/16/2016 [facility] Prilosec 40 mg, Route: PO, Drug form: TAB, Daily, Dosing Weight 67.727, kg, Start date: 04/16/16 9:00:00 CDT, Duration: 30 day, Stop date: 05/15/16 9:00:00 VENTILATED RIB FITTER No Longer Active 04/16/2016 [facility] Magnesium Oxide 400 mg, 1 tab, Route: PO, Drug form: TAB, Daily, Dosing Weight 67.727, kg, Start date: 04/16/16 9:00:00 CDT, Duration: 30 day, Stop date: 05/15/16 9:00:00 CSTNotes: (Same as: Mag-Ox 400) Magnesium ox miroslava [id number] elemental magnesium Dose=__400__mg magnesium oxide (___mg elemental magnesium) No Longer Active 04/16/2016 [facility] Furosemide 40 MG Oral Tablet 40 mg, 1 tab, Route: PO, Drug form: TAB, Daily, Dosing Weight 67.727, kg, Start date: 04/16/16 9:00:00 CDT, Duration: 30 day, Stop date: 05/15/16 9:00:00 CSTNotes: (Same as: Lasix) May cause GI upset. Give with food or milk. No Longer Active 04/16/2016 [facility] Streptococcus pneumoniae serotype 1 capsular antigen diphtheria [id number] protein conjugate vaccine / Streptococcus pneumoniae serotype 14 capsular antigen diphtheria [id number] protein conjugate vaccine / Streptococcus pneumoniae serotype 18C capsular antigen d 0.5 mL, Route: IM, Drug Form: INJ, Daily, Start date: 04/16/16 9:00:00 CDT, Duration: 1 doses or times, Stop date: 04/16/16 9:00:00 CDTNotes: Lightly roll vial (DO NOT SHAKE) before administration. (Same as: Prevnar 13) Inactive 04/16/2016 [facility] Escitalopram 10 mg, 1 tab, Route: PO, Drug form: TAB, Daily, Dosing Weight 67.727, kg, Start date: 04/16/16 9:00:00 CDT, Duration: 30 day, Stop date: 05/15/16 9:00:00 CSTNotes: (Same as: Lexapro) No Longer Active 04/16/2016 [facility] Aspirin 81 MG Enteric Coated Tablet 81 mg, 1 tab, Route: PO, Drug form: ECTAB, Daily, Dosing Weight 67.727, kg, Start date: 04/16/16 9:00:00 CDT, Duration: 30 day, Stop date: 05/15/16 9:00:00 CSTNotes: Do not crush or chew. (Same As: Ecotrin) No Longer Active 04/16/2016 [facility] Saline Flush 0.9% 10 ml, Route: IVP, Drug Form: INJ, Dosing Weight 67.727, kg, Q12H, Start date: 04/15/16 21:00:00 CDT, Duration: 30 day, Stop date: 05/15/16 9:00:00 CSTNotes: (Same as: BD Posiflush) No Longer Active 04/16/2016 [facility] Lipitor 20 mg, 2 tab, Route: PO, Drug form: TAB, Bedtime, Dosing Weight 67.727, kg, Start date: 04/15/16 21:00:00 CDT, Duration: 30 day, Stop date: 05/14/16 21:00:00 CSTNotes: (Same As: Lipitor) No Longer Active 04/16/2016 [facility] Saline Flush 0.9% 10 ml, Route: IVP, Drug Form: INJ, Dosing Weight 67.727, kg, PRN, PRN Line Flush, Start date: 04/15/16 17:30:00 CDT, Duration: 30 day, Stop date: 05/15/16 16:29:00 CSTNotes: (Same as: BD Posiflush) No Longer Active 04/15/2016 [facility] Potassium Chloride 20 MEQ Extended Release Tablet 20 mEq, 1 tab, Route: PO, Drug form: ERTAB, BID, Dosing Weight 67.727, kg, Start date: 04/15/16 17:00:00 CDT, Duration: 30 day, Stop date: 05/15/16 9:00:00 CSTNotes: (Same as: K-Dur 20) "Do Not Crush" With food and full glass of water No Longer Active 04/15/2016 [facility] 24 HR Metoprolol Tartrate 25 MG Extended Release Tablet [Toprol] 25 mg, 1 tab, Route: PO, Drug form: ERTAB, BID, Start date: 04/15/16 17:00:00 CDT, Duration: 30 day, Stop date: 05/15/16 9:00:00 CSTNotes: (Same as: Toprol XL) Do Not Crush No Longer Active 04/15/2016 [facility] Advair Diskus 250 mcg-50 mcg inhalation powder 1 puff, Route: INHALATION, Drug Form: AERO, Dosing Weight 67.727, kg, BID, Start date: 04/15/16 17:00:00 CDT, Duration: 30 day, Stop date: 05/15/16 9:00:00 VENTILATED RIB FITTER Inactive 04/15/2016 [facility] Protonix 40 mg, 1 tab, Route: PO, Drug form: ECTAB, Before Dinner, Start date: 04/15/16 16:30:00 CDT, Duration: 30 day, Stop date: 05/14/16 16:30:00 CSTNotes: Tablet should not be chewed or crushed. (Same as: Protonix) No Longer Active 04/15/2016 [facility] budesonide-formoterol 160 mcg-4.5 mcg/inh inhalation aerosol with adapter 2 inhalation, Route: INHALATION, Drug Form: AERO/A, RBID, Start date: 04/15/16 15:31:00 CDT, Duration: 30 day, Stop date: 05/15/16 8:00:00 CSTNotes: (Same as: Symbicort) WASTE: Aerosol - Return to Pharmacy No Longer Active 04/15/2016 [facility] Ipratropium [place] 0.2 MG/ML Inhalant Solution 500 microgram, 2.5 mL, Route: NEB, Drug form: SOLN, BID, Dosing Weight 67.727, kg, PRN Wheezing, Start date: 04/15/16 13:50:00 CDT, Duration: 30 day, Stop date: 05/15/16 13:49:00 CSTNotes: SEE RT DOCUMENTATION (Same as:Atrovent) No Longer Active 04/15/2016 [facility] Medrol (Jose) as directed Orally Active 4 mg Orally as directed [facility] 03/24/2016 [facility] Tramadol HCl as directed Orally Active 50 mg Orally every 6 hrs prn pain [facility] 03/24/2016 [facility] Voltaren as directed Transdermal Active 1 % Transdermal every 4 hours to right knee [facility] 03/23/2016 [facility] Norel AD 1 tablet as needed Orally Active 4-10-325 MG Orally every 4-6 hours [facility] 06/02/2015 [facility] Sodium Chloride 0.154 MEQ/ML Injectable Solution 1,000 mL, Rate: 25 ml/hr, Infuse over: 40 hr, Route: IV, Dosing Weight 67.727 kg, Total Volume: 1,000, Start date: 10/13/14 12:28:00, Duration: 30 day, Stop date: 11/12/14 12:27:00 Inactive 10/13/2014 [facility] Lipitor 0 Refill(s) Active 10/13/2014 [facility] Vitamin D 0 Refill(s) No Longer Active 10/06/2014 [facility] Acetaminophen 500 mg, PO, PRN, 0 Refill(s) Active 10/06/2014 [facility] cetirizine 10 mg oral tablet, dispersible 10 mg=1 tab, PO, Daily, 0 Refill(s) No Longer Active 10/06/2014 [facility] Budesonide 0.25 MG/ML Inhalant Solution 0.5 mg=2 ml, NEB, BID, # 60 ea, 0 Refill(s) No Longer Active 10/06/2014 [facility] Potassium Chloride 20 MEQ Extended Release Tablet 20 mEq=1 tab, PO, BID, # 10 tab, 0 Refill(s) Active 10/06/2014 [facility] Esomeprazole 10 mg, PO, Daily, 0 Refill(s) Active 10/06/2014 [facility] omega-3 polyunsaturated fatty acids 0 Refill(s) Active 10/06/2014 [facility] Acetaminophen 325 MG / Hydrocodone Bitartrate 10 MG Oral Tablet [[place] 10/325] 1 tab, PO, Q6H, PRN for pain, # 24 tab, 0 Refill(s) Active 10/06/2014 [facility] Vitamin B Complex oral capsule 1 tab, PO, Daily, # 30 cap, 0 Refill(s) Active 10/06/2014 [facility] metoprolol tartrate 25 mg oral tablet 25 mg=1 tab, PO, BID, # 180 tab, 0 Refill(s) Active 10/06/2014 [facility] escitalopram 10 mg oral tablet 10 mg=1 tab, PO, Daily, # 30 tab, 0 Refill(s) Active 10/06/2014 [facility] levofloxacin 500 mg oral tablet 500 mg=1 tab, PO, Daily, # 7 tab, 0 Refill(s) No Longer Active 10/06/2014 [facility] magnesium oxide 400 mg oral tablet 400 mg=1 tab, PO, Daily, # 10 tab, 0 Refill(s) Active 10/06/2014 [facility] Spiriva 18 microgram, INHALATION, Daily, # 30 ea, 0 Refill(s) Active 10/06/2014 [facility] docusate sodium 100 mg oral capsule 100 mg=0, PO, PRN, PRN Constipation, # 20 cap, 0 Refill(s) Active 10/06/2014 [facility] Furosemide 40 MG Oral Tablet 40 mg=1 tab, PO, Daily, # 30 tab, 0 Refill(s) Active 10/06/2014 [facility] Dextromethorphan Hydrobromide 2 MG/ML / Guaifenesin 20 MG/ML Oral Solution 5 ml, PO, Q4H, PRN Cough, # 300 ml, 0 Refill(s) Active 10/06/2014 [facility] Advair Diskus 250 mcg-50 mcg inhalation powder 1 puff, INHALATION, BID, # 28 ea, 0 Refill(s) Active 10/06/2014 [facility] Ipratropium [place] 0.2 MG/ML Inhalant Solution 500 microgram=2.5 mL, NEB, BID, 0 Refill(s) Active 10/06/2014 [facility] Fluticasone propionate 0.05 MG/ACTUAT Dry Powder Inhaler 50 microgram=, INHALATION, BID, 0 Refill(s) No Longer Active 10/06/2014 [facility] Simvastatin 1 tablet in the evening Orally Active 40 mg Orally Once a day [facility] 05/18/2014 [facility] PredniSONE take with food- 3 tabs daily for 3 days, then 2 tabs daily for 3 days, then 1 tab daily for 3 days Orally Active 10 mg Orally Once a day [place] 05/01/2014 [facility] Ipratropium [place] as directed Inhalation No Longer Active 0.02 % Inhalation with xopenex breathing treatments four times a day [facility] 05/01/2014 [facility] Dulera 2 puffs Inhalation Active 200-5 MCG/ACT Inhalation Twice a day [facility] 05/01/2014 [facility] Xopenex 3 ml Inhalation No Longer Active 1.25 MG/3ML Inhalation four times a day with atrovent [facility] 05/01/2014 [facility] Levaquin 1 tablet Orally Active 500 mg Orally Once a day [place] 04/30/2014 [facility] Nebulizer as directed inhalation No Longer Active 0 inhalation with breahting treatments [facility] 04/30/2014 [facility] Nebulizer/Tubing/Mouthpiece as directed inhalation No Longer Active 0 inhalation with breathing treatments [facility] 04/30/2014 [facility] DuoNeb 3 ml Inhalation No Longer Active 0.5-2.5 (3) MG/3ML Inhalation Four times a day [place] 04/30/2014 [facility] Bromfed DM 10 ml as needed Orally Active 30-2-10 MG/5ML Orally every 6 hrs [place] 04/30/2014 [facility] Vitamin D (Ergocalciferol) 1 capsule Orally Active 24241 UNIT Orally once per week [facility] 03/12/2013 [facility] Aspirin EC 1 tablet Orally Active 81 MG Orally Once a day ebranious [facility] Restasis 1 into affected eye Ophthalmic Active 0.05 % Ophthalmic Twice a day ebranious [facility] Magnesium 1 tablet with a meal Orally Active 500 MG Orally Once a day ebranious [facility] Vitamin B Complex not defined Orally Active Orally ebranious [facility] Lipitor 1 tablet Orally Active 20 MG Orally Once a day ebranious [facility] potassium 1 tab [facility] Ipratropium-Albuterol not defined NA Active ebranious [facility] Caltrate 600+D Plus 1 tablet Orally Active 600-800 MG-UNIT Orally Twice a day ebranious [facility] Multivitamins as directed Orally Active 100 mg Orally daily ebranious [facility] Lasix 1 tablet Orally Active 40 MG Orally Once a day ebranious [facility] CoQ-10 1 capsule with a meal Orally Active 200 MG Orally Once a day ebranious [facility] Metoprolol Tartrate 1 tablet Orally Active 25 MG Orally Twice a day ebranious [facility] Prilosec 1 capsule Orally Active 40 MG Orally Once a day Ghebranious [facility] Levalbuterol HCl 0.5 ml NA Active prn Ghebranious [facility] ZyrTEC 1 tablet Orally Active 10 mg Orally prn Ghebranious [facility] Align not defined Orally Active Orally Ghebranious [facility] Fish Oil 1 capsule Orally Active 1000 mg Orally Once a day ebranious [facility] Symbicort not defined NA Active prn Ghebranious [facility] Vitamin D 1 tablet Orally Active 2000 UNIT Orally Once a day [facility] Levaquin 1 tablet Orally Active 500 mg Orally Once a day [facility] Colace 1 capsule as needed Orally Active 50 MG Orally Once a day [facility] Lexapro 1 tablet Orally Active 10 MG Orally Once a day [facility] Caltrate 600+D Plus 1 tablet Orally Active 600-800 MG-UNIT Orally Twice a day [facility] Align not defined Orally Active Orally [facility] Colace 1 capsule as needed Orally Active 50 MG Orally Once a day [facility] Vitamin B Complex not defined Orally Active Orally [facility] Advair Diskus 1 puff Inhalation Active 250-50 MCG/DOSE Inhalation Twice a day [facility] Fernando [facility] Aspirin EC 1 tablet Orally Active 81 MG Orally Once a day [facility] Fernando Cruz [facility] Lasix 1 tablet Orally Active 40 MG Orally Once a day [facility] Fernando Cruz [facility] Vitamin D 1 tablet Orally Active 2000 UNIT Orally Once a day [facility] Fernando Cruz [facility] Prilosec 1 capsule Orally Active 40 MG Orally Once a day [facility] Fernando Cruz [facility] Metoprolol Tartrate 1 tablet Orally Active 25 MG Orally Twice a day [facility] Fernando [facility] Fish Oil 1 capsule Orally Active 1000 mg Orally Once a day [facility] Restasis 1 into affected eye Ophthalmic Active 0.05 % Ophthalmic Twice a day [facility] Magnesium 1 tablet with a meal Orally Active 500 MG Orally Once a day [facility] Lexapro 1 tablet Orally Active 10 MG Orally Once a day [facility] Lipitor 1 tablet Orally Active 20 MG Orally Once a day [facility] CoQ-10 1 capsule with a meal Orally Active 200 MG Orally Once a day [facility] Xarelto 1 tablet by mouth Active 20 mg by mouth Once a day [facility] Amoxicillin-Pot Clavulanate 1 tablet Orally Active 875-125 MG Orally every [address] [facility] Hydroxychloroquine Sulfate not defined Oral Active [address] [facility] Xarelto 1 tablet Orally Active 10 MG Orally [facility] ZyrTEC 1 tablet Orally Active 10 mg Orally Once a day [facility] Prilosec OTC 1 tablet Orally Active 20 mg Orally Once a day [facility] Simvastatin 1 tablet Orally Active 40 mg Orally Once a day Maryjane [facility] ZyrTEC 1 tablet Orally Active 10 mg Orally Once a day [facility] Multivitamins as directed Orally Active 100 mg Orally daily [facility] Advair Diskus Unknown NA Active [facility] Spiriva HandiHaler 1 capsule Inhalation Active 18 MCG Inhalation Once a day [facility] potassium 1 tab Oral Active Oral [facility] Fernando Cruz [facility] Levalbuterol HCl 0.5 ml NA Active daily [facility] Vitamin D 1 tablet Orally Active 1000 UNIT Orally Once a day [facility] Ceftin 1 tablet Orally Active 500 MG Orally Twice a day [facility] Hydrocodone-Acetaminophen Unknown Orally Active 10-250 MG Orally [facility] Nexium 24HR 1 capsule Orally Active 20 MG Orally Once a day [facility] Prilosec OTC 1 tablet Orally Active 20 mg Orally Once a day [facility] Allergies, Adverse Reactions, Alerts Substance Category Reaction Severity Reaction type Status Date Reported Comments Source Codeine Sulfate Adverse Reaction vomiting Adverse Reaction Active 04/30/2018 [facility] codeine Assertion Drug allergy Active [facility] Immunizations Immunization Date Given Site Status Last Updated Comments Source pneumococcal 23-valent vaccine 04/30/2017 [facility] 04/16/2016 [facility]toid [facility] FLUZONE HD [facility] & [place] [id number] 08/12/2015 completed [facility] PNEUMOCOCCAL VACCINE 03/05/2013 completed [facility] Results Order Name Results Value Reference Range Date Interpretation Comments Source Upper GI series DX Upper GI series DX Patient Name: CHRISTIANO VALERIO : 1935; Age: 82 years Female MR: [id number] Study: Upper GI series DX 02/22/2018 9:30 AM CDT Clinical Indication: - K30 Functional dyspepsia,R14.2 Eructation, E66.3 Overweight, Z71.3 Dietary counseling and surveillance, Z87.891 Personal history of nicotine dependence COMPARISON: None FLUOROSCOPY TIME: 1.25 minutes TECHNIQUE: Patient swallowed gas crystals and different consistencies of barium without difficulty. Multiple images of the esophagus, stomach and duodenum were performed in recumbent and upright positions. FINDINGS: ESOPHAGUS: The esophagus demonstrates normal caliber and morphology. Mild irregularity of the distal esophageal mucosa. There are tertiary waves. There is a 2-3 cm hiatal hernia. STOMACH: The stomach is slightly underdistended. No significant gastric fold thickening. There is prompt transit of the barium from the stomach into the duodenum. DUODENUM AND PROXIMAL SMALL BOWEL: The duodenal bulb and C-loop demonstrate normal morphology. No significant delay in passage of barium from the duodenal C-loop into the proximal jejunum. Visualized portion of proximal small bowel is normal in appearance. IMPRESSION: 1. Mild irregularity of the distal esophageal mucosa likely due to esophagitis. Chavez's metaplasia is not excluded on this exam. 2. Small 2-3 cm hiatal hernia. 3. Underdistended stomach limiting gastric detail. [id number] 02/22/2018 - - Read by: Manoj Bragg MD Dictated Date/time: 02/22/18 14:33 Electronically Signed by: Manoj Bragg MD 02/22/18 14:37 FINAL REPORT [facility] CHEM PANEL eGFR 82 mL/min/1.73m2 12/25/2017 Result Comment: The eGFR is calculated using the CKD-EPI formula. In most young, healthy individuals the eGFR will be >90 mL/min/1.73m2. The eGFR declines with age. An eGFR of 60-89 may be normal in some populations, particularly the elderly, for whom the CKD-EPI formula has not been extensively validated. Use of the eGFR is not recommended in the following populations: Individuals with unstable creatinine concentrations, including patients and those with serious co-morbid conditions. Patients with extremes in muscle mass or diet. The data above are obtained from the National Kidney Disease Education Program (NKDEP) which additionally recommends that when the eGFR is used in patients with extremes of body mass index for purposes of drug dosing, the eGFR should be multiplied by the estimated BMI. [facility] CHEM PANEL POC Creatinine 0.7 mg/dL 0.5 - 1.4 12/25/2017 [facility] Chest Pulmonary Embolism CTA Chest Pulmonary Embolism CTA Clinical Indication: - I26.99 Other pulmonary embolism without acute cor pulmonale; Comparison: 04/28/2017 TECHNIQUE: Sequential trans-axial images were obtained thru the chest and upper abdomen after administration of iodinated contrast. CTA protocol was performed with 3-D postprocessing reconstruction MIPs and volume rendering. Coronal and sagittal reconstructions were obtained. 100 cc of nonionic contrast material was used for the exam. Dose: LNI=035 mGy-cm FINDINGS: LUNG PARENCHYMA AND PLEURA: There are no lung nodules. There is bilateral paraseptal emphysematous change. There is right upper lobe granuloma identified which is unchanged when compared with previous exam.. There are no pleural effusions. There is no pneumothorax. AIRWAY: The central airway is normal. . MEDIASTINUM: No significant mediastinal lymphadenopathy. HEART: There is no evidence of RV strain. The cardiac chambers are otherwise unremarkable. There is no pericardial effusion. VASCULAR STRUCTURES: There are no segmental pulmonary emboli noted. The main, right and left pulmonary arteries are normal. The great vessels are unremarkable. The thoracic aorta is is free of aneurysm or dissection.. The superior vena cava is unremarkable. OSSEOUS STRUCTURES: There are no definite significant osseous abnormalities seen. VISUALIZED UPPER ABDOMEN: The visualized upper abdomen is within normal limits. IMPRESSION: 1. No evidence of pulmonary emboli. 2. Bilateral paraseptal emphysematous change. 3. Right upper lobe granuloma. 4. No focal infiltrates, lymphadenopathy, or pleural effusion SL: WR4-M 12/25/2017 - - Read by: Daniel Hudson MD Dictated Date/time: 12/25/17 16:15 Electronically Signed by: Daniel Hudson MD 12/25/17 16:18 FINAL REPORT [facility] Ext Lower Venous Doppler Unilat US Ext Lower Venous Doppler Unilat US Clinical Indication: - leg swelling; leg pain since November 23 Comparison: 04/28/2017 TECHNIQUE: Sonographic evaluation of the leftlower extremity veins was performed using high resolution B-mode imaging, along with pulse and color Doppler imaging. FINDINGS: Left lower extremity: The common femoral vein, femoral vein, popliteal vein and visualized posterior tibial/calf veins are patent. There is no echogenic debris to suggest deep venous thrombosis. The saphenofemoral junction is unremarkable. There is a fluid collection identified within the left mid calf measuring 3.5 x 0.7 x 4.2 cm. IMPRESSION: 1. No evidence of left lower extremity DVT. 2. Fluid collection visualized within the left mid calf with a maximum size of 4.2 cm. SL: WR4-M 12/13/2017 - - Read by: Daniel Hudson MD Dictated Date/time: 12/13/17 18:16 Electronically Signed by: Daniel Hudson MD 12/13/17 18:17 FINAL REPORT [facility] Hand 3 views Bilateral DX Hand 3 views Bilateral DX EXAM: XR BILATERAL HAND 3 VIEWS DATE: 11/02/2017 3:24 PM CDT INDICATION: - Z87.39 Personal history of other diseases of the musculoskeletal system and connective tissue COMPARISON: None TECHNIQUE: PA, lateral and oblique radiographs of the bilateral hands. FINDINGS: Generalized diminished bone mineral density. There is joint space narrowing and small osteophytes throughout the interphalangeal joints. No narrowing of the MCP joints. Bilateral severe narrowing with subarticular sclerosis and large osteophytes of the 1st CMC joint, right worse than left. No soft tissue swelling identified. IMPRESSION: 1. 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 2. Bilateral moderate osteoarthrosis throughout the interphalangeal joints. 11/02/2017 - - Read by: Bert Jiang MD Dictated Date/time: 11/02/17 15:48 Electronically Signed by: Bert Jiang MD 11/02/17 15:49 FINAL REPORT [facility] eGFR 82 mL/min/1.73m2 08/15/2017 Result Comment: The eGFR is calculated using the CKD-EPI formula. In most young, healthy individuals the eGFR will be >90 mL/min/1.73m2. The eGFR declines with age. An eGFR of 60-89 may be normal in some populations, particularly the elderly, for whom the CKD-EPI formula has not been extensively validated. Use of the eGFR is not recommended in the following populations: Individuals with unstable creatinine concentrations, including patients and those with serious co-morbid conditions. Patients with extremes in muscle mass or diet. The data above are obtained from the National Kidney Disease Education Program (NKDEP) which additionally recommends that when the eGFR is used in patients with extremes of body mass index for purposes of drug dosing, the eGFR should be multiplied by the estimated BMI. [facility] CHEM PANEL POC Creatinine 0.7 mg/dL 0.5 - 1.4 08/15/2017 [facility] Abdomen/Pelvis w/wo IV contrast CT Abdomen/Pelvis w/wo IV contrast CT CT ABDOMEN AND PELVIS WITH AND WITHOUT IV CONTRAST HISTORY: - R10.32 Left lower quadrant pain, R93.3 Abnormal findings on diagnostic imaging of other parts of digestive tract. TECHNIQUE: Helical scan of the abdomen and pelvis was performed from the domes of the diaphragm through the symphysis before and after infusion of IV contrast. Images reviewed in 3 planes. IV CONTRAST: 100 cc Omnipaque 300. ORAL CONTRAST: None. DLP: 1022 mGy-cm COMPARISON: 06/27/1717. FINDINGS: LOWER CHEST: Areas of subtle hazy attenuation are demonstrated within each lower lobe and the lingula which appear to be primarily a consequence of mild atelectasis. No consolidation or pleural fluid. Calcified plaque within the distal thoracic aorta. Mild right coronary calcification also noted. LIVER: Noncirrhotic liver morphology with evidence of mild steatosis. No focal abnormality. GALLBLADDER: Normal appearance of the gallbladder (non calcified stones may not be visible on CT). SPLEEN: Multiple punctate calcifications indicative of old granulomatous disease. Otherwise normal. PANCREAS: Normal. ADRENALS: Normal. KIDNEYS: Simple cyst along the posteromedial aspect of the right mid kidney measures 2.4 cm. Otherwise normal. BOWEL, MESENTERY: No evidence of acute bowel pathology. Evidence of diverticulosis noted with primary involvement of the sigmoid. No mesenteric inflammation, adenopathy or mass. APPENDIX: Not visualized. Correlate with surgical history. PERITONEUM: No significant free fluid or extraluminal gas. RETROPERITONEUM: No significant inflammation, mass or adenopathy. Moderate calcified aortoiliac atherosclerotic plaque is noted. No aneurysm. ABDOMINAL WALL: No significant abnormality. PELVIS: Absent uterus. No adnexal mass. No inflammatory change, lymphadenopathy or free fluid within the pelvis. No significant inguinal abnormality. MUSCULOSKELETAL: The bones are demineralized. Evidence of mild multilevel degenerative disc disease. Slight chronic appearing T11 compression fracture deformity. IMPRESSION: 1. No acute finding. 2. Mild bibasilar atelectasis. 3. Mild hepatic steatosis. 4. Atherosclerosis, coronary artery disease. 5. Old granulomatous disease. 6. Colonic diverticulosis with primary involvement of the sigmoid. 7. Hysterectomy. 8. Osteopenia, spondylosis and chronic appearing T11 compression fracture. SL: MARIA VICTORIA 08/15/2017 - - Read by: Víctor Madison MD Dictated Date/time: 08/15/17 15:25 Electronically Signed by: Víctor Madison MD 08/15/17 15:35 FINAL REPORT [facility] ELECTROLYTES AGAP 11.4 meq/L 10.0 - 20.0 07/06/2017 [facility] ELECTROLYTES eGFR 83 mL/min/1.73m2 07/06/2017 Result Comment: The eGFR is calculated using the CKD-EPI formula. In most young, healthy individuals the eGFR will be >90 mL/min/1.73m2. The eGFR declines with age. An eGFR of 60-89 may be normal in some populations, particularly the elderly, for whom the CKD-EPI formula has not been extensively validated. Use of the eGFR is not recommended in the following populations: Individuals with unstable creatinine concentrations, including patients and those with serious co-morbid conditions. Patients with extremes in muscle mass or diet. The data above are obtained from the National Kidney Disease Education Program (NKDEP) which additionally recommends that when the eGFR is used in patients with extremes of body mass index for purposes of drug dosing, the eGFR should be multiplied by the estimated BMI. [facility] ELECTROLYTES CO2 27 meq/L 24 - 32 07/06/2017 [facility] ELECTROLYTES Chloride Lvl 104 meq/L 95 - 109 07/06/2017 [facility] ELECTROLYTES Calcium Lvl 8.8 mg/dL 8.5 - 10.5 07/06/2017 [facility] ELECTROLYTES BUN 7 mg/dL 7 - 22 07/06/2017 [facility] ELECTROLYTES Glucose Lvl 113 mg/dL 70 - 99 07/06/2017 [facility] ELECTROLYTES Potassium Lvl 4.4 meq/L 3.5 - 5.1 07/06/2017 [facility] ELECTROLYTES Creatinine Lvl 0.66 mg/dL 0.50 - 1.40 07/06/2017 [facility] ELECTROLYTES Sodium Lvl 138 meq/L 135 - 145 07/06/2017 [facility] HEMATOLOGY Monocytes # 0.4 K/CMM 0.0 - 0.8 07/06/2017 [facility] HEMATOLOGY Eosinophils # 0.3 K/CMM 0.0 - 0.5 07/06/2017 [facility] HEMATOLOGY Lymphocytes # 0.6 K/CMM 1.0 - 5.5 07/06/2017 [facility] HEMATOLOGY Segs-Bands # 5.3 K/CMM 1.5 - 8.1 07/06/2017 [facility] Monocytes 6.6 % 2.0 - 12.0 07/06/2017 [facility] Lymphocytes 9.3 % 20.0 - 40.0 07/06/2017 [facility] Eosinophils 4.7 % 0.0 - 4.0 07/06/2017 [facility] Basophils 0.6 % 0.0 - 1.0 07/06/2017 [facility] Segs 78.8 % 45.0 - 75.0 07/06/2017 [facility] Hgb 11.6 g/dL 12.0 - 16.0 07/06/2017 [facility] RBC X 10x6 3.59 M/CMM 4.20 - 5.40 07/06/2017 [facility] HEMATOLOGY WBC X 10x3 6.7 K/CMM 3.7 - 10.4 07/06/2017 [facility] MPV 8.1 fL 7.4 - 10.4 07/06/2017 [facility] MCV 95.0 fL 80.0 - 98.0 07/06/2017 [facility] Hct 34.1 % 36.0 - 48.0 07/06/2017 [facility] MCHC 34.0 g/dL 32.0 - 36.0 07/06/2017 [facility] MCH 32.3 pg 27.0 - 31.0 07/06/2017 [facility] HEMATOLOGY RDW 13.4 % 11.5 - 14.5 07/06/2017 [facility] HEMATOLOGY Platelet 227 K/CMM 133 - 450 07/06/2017 [facility] CHEM PANEL Phosphorus 2.8 mg/dL 2.5 - 4.5 07/05/2017 [facility] CHEM PANEL Magnesium Lvl 2.0 mg/dL 1.8 - 2.4 07/05/2017 [facility] CHEM PANEL A/G Ratio 0.7 0.7 - 1.6 07/05/2017 [facility] CHEM PANEL Globulin 3.8 g/dL 2.7 - 4.2 07/05/2017 [facility] CHEM PANEL eGFR 88 mL/min/1.73m2 07/05/2017 Result Comment: The eGFR is calculated using the CKD-EPI formula. In most young, healthy individuals the eGFR will be >90 mL/min/1.73m2. The eGFR declines with age. An eGFR of 60-89 may be normal in some populations, particularly the elderly, for whom the CKD-EPI formula has not been extensively validated. Use of the eGFR is not recommended in the following populations: Individuals with unstable creatinine concentrations, including patients and those with serious co-morbid conditions. Patients with extremes in muscle mass or diet. The data above are obtained from the National Kidney Disease Education Program (NKDEP) which additionally recommends that when the eGFR is used in patients with extremes of body mass index for purposes of drug dosing, the eGFR should be multiplied by the estimated BMI. [facility] CHEM PANEL Glucose Lvl 126 mg/dL 70 - 99 07/05/2017 [facility] CHEM PANEL BUN 10 mg/dL 7 - 22 07/05/2017 [facility] CHEM PANEL Potassium Lvl 4.0 meq/L 3.5 - 5.1 07/05/2017 [facility] CHEM PANEL CO2 28 meq/L 24 - 32 07/05/2017 [facility] CHEM PANEL Sodium Lvl 136 meq/L 135 - 145 07/05/2017 [facility] CHEM PANEL Chloride Lvl 103 meq/L 95 - 109 07/05/2017 [facility] CHEM PANEL Creatinine Lvl 0.56 mg/dL 0.50 - 1.40 07/05/2017 [facility] CHEM PANEL Calcium Lvl 9.0 mg/dL 8.5 - 10.5 07/05/2017 [facility] CHEM PANEL Total Protein 6.4 g/dL 6.4 - 8.4 07/05/2017 [facility] CHEM PANEL ASPARTATE TRANSAMINASE 16 unit/L 0 - 37 [facility] ALANINE AMINOTRANSFERASE 13 unit/L 0 - 65 07/05/2017 [facility] CHEM PANEL Alk Phos 58 unit/L 39 - 136 07/05/2017 [facility] CHEM PANEL Albumin Lvl 2.6 g/dL 3.5 - 5.0 07/05/2017 [facility] CHEM PANEL AGAP 9.0 meq/L 10.0 - 20.0 07/05/2017 [facility] CHEM PANEL B/C Ratio 18 6 - 25 07/05/2017 [facility] CHEM PANEL Bili Total 0.4 mg/dL 0.2 - 1.3 07/05/2017 [facility] Platelet 222 K/CMM 133 - 450 07/05/2017 [facility] HEMATOLOGY MPV 8.5 fL 7.4 - 10.4 07/05/2017 [facility] HEMATOLOGY RDW 13.4 % 11.5 - 14.5 07/05/2017 [facility] MCHC 33.6 g/dL 32.0 - 36.0 07/05/2017 [facility] MCV 95.9 fL 80.0 - 98.0 07/05/2017 [facility] MCH 32.3 pg 27.0 - 31.0 07/05/2017 [facility] Hgb 11.9 g/dL 12.0 - 16.0 07/05/2017 [facility] HEMATOLOGY Hct 35.4 % 36.0 - 48.0 07/05/2017 [facility] HEMATOLOGY RBC X 10x6 3.69 M/CMM 4.20 - 5.40 07/05/2017 [facility] WBC X 10x3 6.3 K/CMM 3.7 - 10.4 07/05/2017 [facility] Eosinophils 6.8 % 0.0 - 4.0 07/05/2017 [facility] Lymphocytes 21.2 % 20.0 - 40.0 07/05/2017 [facility] Monocytes 8.5 % 2.0 - 12.0 07/05/2017 [facility] HEMATOLOGY Segs 62.6 % 45.0 - 75.0 07/05/2017 [facility] HEMATOLOGY Monocytes # 0.5 K/CMM 0.0 - 0.8 07/05/2017 [facility] HEMATOLOGY Eosinophils # 0.4 K/CMM 0.0 - 0.5 07/05/2017 [facility] Segs-Bands # 3.9 K/CMM 1.5 - 8.1 07/05/2017 [facility] Lymphocytes # 1.3 K/CMM 1.0 - 5.5 07/05/2017 [facility] Basophils 0.9 % 0.0 - 1.0 07/05/2017 [facility] HEMATOLOGY Basophils # 0.1 K/CMM 0.0 - 0.2 07/05/2017 [facility] CHEM PANEL Lipase Lvl 211 unit/L 73 - 393 07/04/2017 [facility] ELECTROLYTES AGAP 9.0 meq/L 10.0 - 20.0 07/04/2017 [facility] ELECTROLYTES B/C Ratio 17 6 - 25 07/04/2017 [facility] ELECTROLYTES Globulin 4.4 g/dL 2.7 - 4.2 07/04/2017 [facility] ELECTROLYTES A/G Ratio 0.7 0.7 - 1.6 07/04/2017 [facility] ELECTROLYTES eGFR 80 mL/min/1.73m2 07/04/2017 Result Comment: The eGFR is calculated using the CKD-EPI formula. In most young, healthy individuals the eGFR will be >90 mL/min/1.73m2. The eGFR declines with age. An eGFR of 60-89 may be normal in some populations, particularly the elderly, for whom the CKD-EPI formula has not been extensively validated. Use of the eGFR is not recommended in the following populations: Individuals with unstable creatinine concentrations, including patients and those with serious co-morbid conditions. Patients with extremes in muscle mass or diet. The data above are obtained from the National Kidney Disease Education Program (NKDEP) which additionally recommends that when the eGFR is used in patients with extremes of body mass index for purposes of drug dosing, the eGFR should be multiplied by the estimated BMI. [facility] ELECTROLYTES Alk Phos 68 unit/L 39 - 136 07/04/2017 [facility] ELECTROLYTES Bili Total 0.3 mg/dL 0.2 - 1.3 07/04/2017 [facility] ELECTROLYTES BUN 12 mg/dL 7 - 22 07/04/2017 [facility] ELECTROLYTES Glucose Lvl 108 mg/dL 70 - 99 07/04/2017 [facility] ELECTROLYTES Chloride Lvl 102 meq/L 95 - 109 07/04/2017 [facility] ELECTROLYTES Potassium Lvl 4.0 meq/L 3.5 - 5.1 07/04/2017 [facility] ELECTROLYTES Sodium Lvl 135 meq/L 135 - 145 07/04/2017 [facility] ELECTROLYTES Creatinine Lvl 0.71 mg/dL 0.50 - 1.40 07/04/2017 [facility] ELECTROLYTES Calcium Lvl 9.3 mg/dL 8.5 - 10.5 07/04/2017 [facility] ELECTROLYTES CO2 28 meq/L 24 - 32 07/04/2017 [facility] ELECTROLYTES Total Protein 7.3 g/dL 6.4 - 8.4 07/04/2017 [facility] ELECTROLYTES Albumin Lvl 2.9 g/dL 3.5 - 5.0 07/04/2017 [facility] ELECTROLYTES ASPARTATE TRANSAMINASE 14 unit/L 0 - 37 07/04/2017 [facility] ELECTROLYTES ALANINE AMINOTRANSFERASE 13 unit/L 0 - 65 07/04/2017 [facility] MCH 31.9 pg 27.0 - 31.0 07/04/2017 [facility] RDW 13.7 % 11.5 - 14.5 07/04/2017 [facility] MCV 95.5 fL 80.0 - 98.0 07/04/2017 [facility] MPV 7.9 fL 7.4 - 10.4 07/04/2017 [facility] MCHC 33.4 g/dL 32.0 - 36.0 07/04/2017 [facility] Platelet 217 K/CMM 133 - 450 07/04/2017 [facility] WBC X 10x3 9.4 K/CMM 3.7 - 10.4 07/04/2017 [facility] Hct 40.1 % 36.0 - 48.0 07/04/2017 [facility] RBC X 10x6 4.20 M/CMM 4.20 - 5.40 07/04/2017 [facility] Hgb 13.4 g/dL 12.0 - 16.0 07/04/2017 [facility] Basophils 0.7 % 0.0 - 1.0 07/04/2017 [facility] HEMATOLOGY Segs-Bands # 6.4 K/CMM 1.5 - 8.1 07/04/2017 [facility] HEMATOLOGY Monocytes # 0.9 K/CMM 0.0 - 0.8 07/04/2017 [facility] HEMATOLOGY Eosinophils # 0.3 K/CMM 0.0 - 0.5 07/04/2017 [facility] Lymphocytes # 1.8 K/CMM 1.0 - 5.5 07/04/2017 [facility] Basophils # 0.1 K/CMM 0.0 - 0.2 07/04/2017 [facility] Lymphocytes 18.7 % 20.0 - 40.0 07/04/2017 [facility] HEMATOLOGY Segs 67.9 % 45.0 - 75.0 07/04/2017 [facility] HEMATOLOGY Eosinophils 3.6 % 0.0 - 4.0 07/04/2017 [facility] HEMATOLOGY Monocytes 9.1 % 2.0 - 12.0 07/04/2017 [facility] ED Abdomen/Pelvis IV contrast only CT ED Abdomen/Pelvis IV contrast only CT Patient Name: CHRISTIANO VALERIO : 1935; Age: 82 years Female MR: [id number] Study: ED Abdomen/Pelvis IV contrast only CT 07/04/2017 10:45 AM [employer] Clinical Indication: - llq abd pain,LLQ abd pain since Sunday night. Some diarrhea. Pt has Hx of COPD \\T\\ is on O2 at home Contrast: 100ml of OMNI 300--IV, EGFR [address] DLP: 1510.15 MGY-CM COMPARISON: None TECHNIQUE: Helical imaging was performed diaphragm through the symphysis with IV multiplanar reformations obtained after the administration of IV contrast. FINDINGS: LOWER CHEST: Lingular, bibasilar atelectasis. Cardiomegaly with coronary artery calcifications. ABDOMEN: No free air. LIVER: Fatty and enlarged liver. BILIARY TREE: Normal. GALLBLADDER: Mildly distended gallbladder. PANCREAS: Normal. SPLEEN: Normal. ADRENALS: Normal. KIDNEYS: No hydronephrosis. 2.4 cm right renal cyst measuring 6.4 Hounsfield units. PELVIS: No pelvic mass. The urinary bladder is normal. BOWEL: No small bowel obstruction. Sigmoid diverticulosis with moderate to severe diverticulitis involving the proximal/mid sigmoid colon. No abscess formation. PERITONEUM: Free fluid in the right paracolic gutter limiting evaluation of the appendix. Free fluid extends to the lower pelvis. RETROPERITONEUM: There is mild aneurysm of the suprarenal aorta measuring up to 2.7 cm. There is no pathologic lymphadenopathy. MUSCULOSKELETAL: The skeleton is intact. IMPRESSION: 1. Sigmoid diverticulitis. 2. Fatty and enlarged liver. 3. Mildly distended gallbladder. 4. Right paracolic gutter fluid limiting evaluation of the appendix. 5. Small suprarenal aortic aneurysm. SL: [id number] 07/04/2017 - - Read by: Manoj Bragg MD Dictated Date/time: 07/04/17 13:25 Electronically Signed by: Manoj Bragg MD 07/04/17 13:35 FINAL REPORT [facility] PTT 80.5 s 22.9 - 35.8 04/30/2017 [facility] HEMATOLOGY PTT 96.6 s 22.9 - 35.8 04/29/2017 [facility] HEMATOLOGY PTT 37.9 s 22.9 - 35.8 04/29/2017 [facility] HEMATOLOGY RDW 14.2 % 11.5 - 14.5 04/29/2017 [facility] HEMATOLOGY MCHC 34.1 g/dL 32.0 - 36.0 04/29/2017 [facility] HEMATOLOGY Platelet 197 K/CMM 133 - 450 04/29/2017 [facility] HEMATOLOGY MPV 8.0 fL 7.4 - 10.4 04/29/2017 [facility] HEMATOLOGY Hct 38.5 % 36.0 - 48.0 04/29/2017 [facility] HEMATOLOGY MCH 33.1 pg 27.0 - 31.0 04/29/2017 [facility] HEMATOLOGY MCV 97.0 fL 80.0 - 98.0 04/29/2017 [facility] HEMATOLOGY RBC 3.97 M/CMM 4.20 - 5.40 04/29/2017 [facility] HEMATOLOGY WBC 8.4 K/CMM 3.7 - 10.4 04/29/2017 [facility] HEMATOLOGY Hgb 13.1 g/dL 12.0 - 16.0 04/29/2017 [facility] HEMATOLOGY Eosinophils # 0.1 K/CMM 0.0 - 0.5 04/29/2017 [facility] HEMATOLOGY Monocytes 6.6 % 2.0 - 12.0 04/29/2017 [facility] HEMATOLOGY Eosinophils 0.8 % 0.0 - 4.0 04/29/2017 [facility] HEMATOLOGY Basophils 0.4 % 0.0 - 1.0 04/29/2017 [facility] HEMATOLOGY Segs-Bands # 6.1 K/CMM 1.5 - 8.1 04/29/2017 [facility] HEMATOLOGY Lymphocytes # 1.6 K/CMM 1.0 - 5.5 04/29/2017 [facility] HEMATOLOGY Monocytes # 0.6 K/CMM 0.0 - 0.8 04/29/2017 [facility] HEMATOLOGY Segs 73.1 % 45.0 - 75.0 04/29/2017 [facility] HEMATOLOGY Lymphocytes 19.1 % 20.0 - 40.0 04/29/2017 [facility] CARDIAC ENZYMES Total CK 65 unit/L 12 - 191 04/28/2017 [facility] CARDIAC ENZYMES Troponin-I null 0.00 - 0.40 04/28/2017 [facility] ELECTROLYTES Potassium Lvl 4.3 meq/L 3.5 - 5.1 04/28/2017 [facility] ELECTROLYTES Chloride Lvl 104 meq/L 95 - 109 04/28/2017 [facility] ELECTROLYTES Creatinine Lvl 0.88 mg/dL 0.50 - 1.40 04/28/2017 [facility] ELECTROLYTES Sodium Lvl 138 meq/L 135 - 145 04/28/2017 [facility] ELECTROLYTES Glucose Lvl 196 mg/dL 70 - 99 04/28/2017 [facility] ELECTROLYTES BUN 16 mg/dL 7 - 22 04/28/2017 [facility] ELECTROLYTES Calcium Lvl 8.5 mg/dL 8.5 - 10.5 04/28/2017 [facility] ELECTROLYTES CO2 25 meq/L 24 - 32 04/28/2017 [facility] ELECTROLYTES AGAP 13.3 meq/L 10.0 - 20.0 04/28/2017 [facility] ELECTROLYTES eGFR 62 mL/min/1.73m2 04/28/2017 Result Comment: The eGFR is calculated using the CKD-EPI formula. In most young, healthy individuals the eGFR will be >90 mL/min/1.73m2. The eGFR declines with age. An eGFR of 60-89 may be normal in some populations, particularly the elderly, for whom the CKD-EPI formula has not been extensively validated. Use of the eGFR is not recommended in the following populations: Individuals with unstable creatinine concentrations, including patients and those with serious co-morbid conditions. Patients with extremes in muscle mass or diet. The data above are obtained from the National Kidney Disease Education Program (NKDEP) which additionally recommends that when the eGFR is used in patients with extremes of body mass index for purposes of drug dosing, the eGFR should be multiplied by the estimated BMI. [facility] HEMATOLOGY INR 0.92 0.85 - 1.17 04/28/2017 [facility] HEMATOLOGY PT 12.4 s 12.0 - 14.7 04/28/2017 [facility] MPV 7.8 fL 7.4 - 10.4 04/28/2017 [facility] RDW 14.9 % 11.5 - 14.5 04/28/2017 [facility] Platelet 183 K/CMM 133 - 450 04/28/2017 [facility] MCHC 34.4 g/dL 32.0 - 36.0 04/28/2017 [facility] MCH 33.1 pg 27.0 - 31.0 04/28/2017 [facility] MCV 96.2 fL 80.0 - 98.0 04/28/2017 [facility] Hct 37.4 % 36.0 - 48.0 04/28/2017 [facility] Hgb 12.8 g/dL 12.0 - 16.0 04/28/2017 [facility] RBC 3.89 M/CMM 4.20 - 5.40 04/28/2017 [facility] WBC 6.9 K/CMM 3.7 - 10.4 04/28/2017 [facility] Lymphocytes 7.6 % 20.0 - 40.0 04/28/2017 [facility] Eosinophils 0.1 % 0.0 - 4.0 04/28/2017 [facility] Basophils 0.5 % 0.0 - 1.0 04/28/2017 [facility] Monocytes 2.0 % 2.0 - 12.0 04/28/2017 [facility] Plt Morph Normal (04/28/17 4:38 AM) 04/28/2017 [facility] Segs 89.8 % 45.0 - 75.0 04/28/2017 [facility] RBC Morph Normal (04/28/17 4:38 AM) 04/28/2017 [facility] Lymphocytes # 0.5 K/CMM 1.0 - 5.5 04/28/2017 [facility] Segs-Bands # 6.2 K/CMM 1.5 - 8.1 04/28/2017 [facility] Monocytes # 0.1 K/CMM 0.0 - 0.8 04/28/2017 [facility] D-Dimer 1.35 ug/mL FEU 04/28/2017 [facility] Ext Lower Venous Doppler Bilat US Ext Lower Venous Doppler Bilat US PROCEDURE: BILATERAL LOWER EXTREMITY VENOUS ULTRASOUND INDICATION: Shortness of breath. History of pulmonary embolism. COMPARISON: None. TECHNIQUE: Sonographic evaluation of the bilateral lower extremity veins was performed using high resolution B-mode, pulse and color Doppler imaging. FINDINGS: RIGHT: The common femoral, femoral, popliteal and visualized calf veins are patent. Normal venous waveforms. The saphenofemoral junction is unremarkable. LEFT: The common femoral, femoral, popliteal and visualized calf veins are patent. Normal venous waveforms. The saphenofemoral junction is unremarkable. 1.6 cm cystic structure left popliteal fossa likely Noriega's cyst. IMPRESSION: No deep venous thrombosis. SL: ANGEL LUIS 04/28/2017 - - Read by: Rajesh Peralta MD Dictated Date/time: 04/28/17 04:17 Electronically Signed by: Rajesh Peralta 04/28/17 04:19 FINAL REPORT [facility] Chest CTA Chest CTA CT ANGIOGRAPHY CHEST, INDICATION: Cough. Tachycardia and dyspnea. COMPARISON: 04/27/2017 TECHNIQUE: 100 mL of Isovue-300 iodinated contrast was administered intravenously by rapid injection, with further multislice axial sections acquired in the pulmonary arterial phase from the thoracic inlet to the upper abdomen. Coronal and 3-D reformatted images were obtained. Total DLP: 711 LIMITATIONS: Non-gated technique limits cardiac detail. FINDINGS: Mediastinal windows: The heart is normal size. There is no pericardial pleural effusion. Thoracic aorta is normal caliber without prostatic calcifications. Aortic valvular calcifications are noted. There is extensive coronary arterial calcifications. There are filling defects consistent with pulmonary embolism identified in the right upper lobe segmental and right lower lobe subsegmental arteries. There is also minimal thrombus in the distal right main pulmonary artery. Small filling defects identified in the left lower lobe subsegmental arteries as well. No evidence for heart strain. There is no mediastinal, hilar or axillary lymphadenopathy. Lungs windows: Centrilobular emphysema. Patchy opacities dependent right lower lobe likely atelectasis or scarring. There is also scarring in the inferior lingula and left lower lobe. No evidence for mass, acute consolidation or suspicious-appearing pulmonary nodule. Musculoskeletal: No acute bone or soft tissue abnormalities. Upper abdomen: Right renal cyst. Splenic granuloma.. Additional comments: None. IMPRESSION: 1. Positive for bilateral pulmonary embolism as described. 2. Atherosclerosis including coronary arterial disease. 3. Centrilobular emphysema. Dependent atelectasis or scarring right lower lobe. A verbal report is conveyed to Dr. German on 04/28/2017 at 0304 hours. 04/28/2017 - - Read by: Rajesh Peralta MD Dictated Date/time: 04/28/17 02:57 Electronically Signed by: Rajesh Peralta 04/28/17 03:05 FINAL REPORT [facility] CARDIAC ENZYMES Troponin-I null 0.00 - 0.40 04/28/2017 [facility] CARDIAC ENZYMES CK MB 4.5 ng/mL 0.5 - 3.6 04/28/2017 [facility] CARDIAC ENZYMES Total CK 83 unit/L 12 - 191 04/28/2017 [facility] CARDIAC ENZYMES CK MB Index 5.4 0.0 - 2.5 04/28/2017 [facility] CARDIAC ENZYMES BNP 142 pg/mL <=100 pg/mL 04/28/2017 [facility] CHEM PANEL eGFR 78 mL/min/1.73m2 04/28/2017 Result Comment: The eGFR is calculated using the CKD-EPI formula. In most young, healthy individuals the eGFR will be >90 mL/min/1.73m2. The eGFR declines with age. An eGFR of 60-89 may be normal in some populations, particularly the elderly, for whom the CKD-EPI formula has not been extensively validated. Use of the eGFR is not recommended in the following populations: Individuals with unstable creatinine concentrations, including patients and those with serious co-morbid conditions. Patients with extremes in muscle mass or diet. The data above are obtained from the National Kidney Disease Education Program (NKDEP) which additionally recommends that when the eGFR is used in patients with extremes of body mass index for purposes of drug dosing, the eGFR should be multiplied by the estimated BMI. [facility] CHEM PANEL B/C Ratio 22 6 - 25 04/28/2017 [facility] CHEM PANEL AGAP 11.9 meq/L 10.0 - 20.0 04/28/2017 [facility] CHEM PANEL Globulin 3.5 g/dL 2.7 - 4.2 04/28/2017 [facility] CHEM PANEL A/G Ratio 0.9 0.7 - 1.6 04/28/2017 [facility] CHEM PANEL Albumin Lvl 3.3 g/dL 3.5 - 5.0 04/28/2017 [facility] CHEM PANEL Bili Total 0.3 mg/dL 0.2 - 1.3 04/28/2017 [facility] CHEM PANEL ALT 27 unit/L 0 - 65 04/28/2017 [facility] CHEM PANEL Alk Phos 74 unit/L 39 - 136 04/28/2017 [facility] CHEM PANEL AST 19 unit/L 0 - 37 04/28/2017 [facility] CHEM PANEL BUN 16 mg/dL 7 - 22 04/28/2017 [facility] CHEM PANEL Sodium Lvl 143 meq/L 135 - 145 04/28/2017 [facility] CHEM PANEL Creatinine Lvl 0.73 mg/dL 0.50 - 1.40 04/28/2017 [facility] CHEM PANEL CO2 30 meq/L 24 - 32 04/28/2017 [facility] CHEM PANEL Chloride Lvl 105 meq/L 95 - 109 04/28/2017 [facility] CHEM PANEL Glucose Lvl 118 mg/dL 70 - 99 04/28/2017 [facility] CHEM PANEL Potassium Lvl 3.9 meq/L 3.5 - 5.1 04/28/2017 [facility] CHEM PANEL Total Protein 6.8 g/dL 6.4 - 8.4 04/28/2017 [facility] CHEM PANEL Calcium Lvl 8.9 mg/dL 8.5 - 10.5 04/28/2017 [facility] HEMATOLOGY INR 0.93 0.85 - 1.17 04/28/2017 [facility] HEMATOLOGY PT 12.5 s 12.0 - 14.7 04/28/2017 [facility] HEMATOLOGY RBC 4.03 M/CMM 4.20 - 5.40 04/28/2017 [facility] HEMATOLOGY WBC 7.7 K/CMM 3.7 - 10.4 04/28/2017 [facility] HEMATOLOGY Hgb 13.8 g/dL 12.0 - 16.0 04/28/2017 [facility] HEMATOLOGY MPV 7.9 fL 7.4 - 10.4 04/28/2017 [facility] HEMATOLOGY Hct 39.9 % 36.0 - 48.0 04/28/2017 [facility] MCH 34.2 pg 27.0 - 31.0 04/28/2017 [facility] MCV 98.9 fL 80.0 - 98.0 04/28/2017 [facility] MCHC 34.5 g/dL 32.0 - 36.0 04/28/2017 [facility] HEMATOLOGY RDW 14.7 % 11.5 - 14.5 04/28/2017 [facility] HEMATOLOGY Platelet 201 K/CMM 133 - 450 04/28/2017 [facility] HEMATOLOGY Basophils # 0.1 K/CMM 0.0 - 0.2 04/28/2017 [facility] Lymphocytes # 1.7 K/CMM 1.0 - 5.5 04/28/2017 [facility] HEMATOLOGY Segs-Bands # 5.1 K/CMM 1.5 - 8.1 04/28/2017 [facility] HEMATOLOGY Eosinophils # 0.2 K/CMM 0.0 - 0.5 04/28/2017 [facility] Monocytes # 0.6 K/CMM 0.0 - 0.8 04/28/2017 [facility] RBC Morph Normal (04/27/17 8:50 PM) 04/28/2017 [facility] Plt Morph Normal (04/27/17 8:50 PM) 04/28/2017 [facility] Eosinophils 2.9 % 0.0 - 4.0 04/28/2017 [facility] Basophils 1.0 % 0.0 - 1.0 04/28/2017 [facility] Lymphocytes 22.2 % 20.0 - 40.0 04/28/2017 [facility] Segs 66.6 % 45.0 - 75.0 04/28/2017 [facility] Monocytes 7.3 % 2.0 - 12.0 04/28/2017 [facility] Chest wo contrast CT Chest wo contrast CT EXAM: CT CHEST WITHOUT CONTRAST DATE: 04/27/2017 10:45 PM CDT INDICATION: Shortness of breath. COMPARISON: Chest radiograph of same date. TECHNIQUE: Noncontrast helical CT imaging of the chest was performed from thoracic inlet through the lung bases. Axial, sagittal and coronal multiplanar reconstructions provided. CT Radiation Dose: ECJ=220.77 mGy-cm FINDINGS: LUNGS AND PLEURA: Moderate emphysematous changes are visualized with scattered areas of interstitial scarring. A calcified granuloma is noted within the right upper lobe. Previously described nodular density on chest radiograph likely relates to artifact. No interstitial or alveolar airspace opacities are identified. No suspicious pulmonary nodules are present. No pleural effusions or pneumothorax. AIRWAY: The central airway is normal. SYSTEMIC VESSELS: The thoracic aorta is normal in caliber without aneurysmal dilatation. There is atherosclerotic calcification of the aortic arch. HEART: Median sternotomy wires are identified. Dense calcification of the aortic root and coronary arteries is noted. The heart is not enlarged, without evidence for a pericardial effusion. MEDIASTINUM: Multiple calcified mediastinal and hilar lymph nodes, suggestive of prior granulomatous disease. VISUALIZED UPPER ABDOMEN: Multiple calcified granulomas noted within the spleen. OSSEOUS STRUCTURES: Mild degenerative changes of the thoracic spine. SOFT TISSUE: Unremarkable. IMPRESSION: 1. Emphysematous changes without acute cardiopulmonary abnormality. 2. Previously described nodular density within the right upper lung field on chest radiograph likely relates to a summation of vascular tissues. No suspicious pulmonary nodules or masses are visualized. 3. Evidence for prior granulomatous disease. 4. Dense calcification of the aortic root and coronary arteries. SL: [id number] 04/27/2017 - - Read by: Juanito Waller MD Dictated Date/time: 04/27/17 23:45 Electronically Signed by: Juanito Waller MD 04/27/17 23:54 FINAL REPORT [facility] Chest 1view DX Chest 1view DX EXAM: XR CHEST 1 VIEW DATE: 04/27/2017 5:53 PM CDT INDICATION: Chest pain. COMPARISON: 10/06/2014 TECHNIQUE: A single AP view of the chest was obtained. FINDINGS: A calcified granuloma is noted within the right upper lobe. Emphysematous changes are noted throughout the lungs, with scattered areas of interstitial scarring. There is a somewhat ill-defined nodular density within the right upper lung field measuring 12 mm. The cardiomediastinal silhouette is not enlarged. There is atherosclerotic calcification of the aorta. The costophrenic recesses are sharp and without effusion. No acute osseous abnormality is noted. Median sternotomy wires are present. IMPRESSION: 1. Ill-defined nodular density within the right upper lung field measures [address] chest may be helpful for further evaluation and characterization. 2. Emphysematous changes throughout the lungs with scattered areas of interstitial scarring. SL: [id number] 04/27/2017 - - Read by: Juanito Waller MD Dictated Date/time: 04/27/17 18:24 Electronically Signed by: Juanito Waller MD 04/27/17 18:26 FINAL REPORT [facility] Breast Mammo Scrn NEFTALI w dominic incl CAD MA Breast Mammo Scrn NEFTALI w dominic incl CAD MA - BREAST MAMMO SCRN NEFTALI W DOMINIC INCL CAD MA BILATERAL DIGITAL SCREENING MAMMOGRAM 3D/2D WITH CAD: 09/13/2016 CLINICAL: Routine. 2D digital mammographic images and 3D digital tomosynthesis images were obtained in the CC and MLO projections. Current study was evaluated with a Computer Aided Detection (CAD) system. Comparison is made to exams dated: 06/23/2014 mammogram, 03/26/2013 mammogram, 03/22/2012 mammogram, 10/14/2010 mammogram, 10/01/2009 mammogram and 03/11/2008 mammogram - [facility]. There are scattered fibroglandular densities in both breasts. There are benign vascular calcifications in both breasts. There also are benign scattered calcifications in both breasts. No significant masses, calcifications, or other findings are seen in either breast. There has been no significant interval change. IMPRESSION: BENIGN There is no mammographic evidence of malignancy. A 1 year screening mammogram is recommended. Catherine Hastings M.D. ap/penrad:09/14/2016 07:56:41 Solar Consultant: Vero Almeida, [facility] This exam was dictated and interpreted by [id number] for [facility] Breast [facility]eredith. letter sent: Normal exam Mammogram BI-RADS: 2 Benign 09/13/2016 - - Read by: Catherine Hastings MD Dictated Date/time: 09/14/16 07:56 Electronically Signed by: Catherine Hastings MD 09/14/16 07:56 FINAL REPORT [facility] Brain CTA Brain CTA Brain CTA 80 years /o Female Clinical Indication: Weakness; Comparison: 04/15/2016 TECHNIQUE: Sequential trans-axial images were obtained with a multi-detector helical CT after iodinated contrast administration. Coronal and sagittal reconstructions and were obtained, along with 3D post-processing imaging for exam interpretation. CONTRAST: 100 cc of IV Omnipaque contrast material was used for the exam. CT Radiation Dose DLP 893 mGy-cm FINDINGS: ANTERIOR CIRCULATION: The supraclinoid, petrous, cavernous and ophthalmic segments of the internal carotid arteries are remarkable for mild atherosclerotic calcification in the carotid siphons bilaterally. The A1 and A2 segments of the anterior cerebral arteries, middle cerebral arteries and branches are unremarkable. The anterior communicating artery is visualized and within normal limits. POSTERIOR CIRCULATION: Bilateral vertebral arteries, basilar artery, superior cerebellar and posterior cerebral arteries are visualized. The right posterior cerebral artery arises predominantly from the ipsilateral internal carotid artery. There is a small contribution from the vertebral basilar system. The left posterior cerebral artery arises predominantly from the vertebral basilar system with a small left-sided posterior communicator.. There are no aneurysms or arteriovenous malformations seen. There is no significant atherosclerotic disease. NON-CONTRAST BRAIN IMAGES: The noncontrast images of the head show no mass- effect or midline shift. There are no intra or extra-axial fluid collections, intraventricular or intraparenchymal hemorrhages. The ventricles and cisterns are normal. CONTRAST ENHANCED BRAIN IMAGES: The contrast-enhanced images of the head show no abnormally enhancing lesions. IMPRESSION: Unremarkable CT angiography of [place]. SL: [id number] 04/17/2016 - - Read by: Isiah Schmid MD Dictated Date/time: 04/17/16 17:13 Electronically Signed by: Isiah Schmid MD 04/17/16 17:17 FINAL REPORT [facility] Forearm w contrast CT Forearm w contrast CT Study: CT scan of the left forearm with contrast Clinical Indication: Left upper extremity pain Comparison: None TECHNIQUE: Multiple axial CT images of the left forearm were acquired following the administration of intravenous contrast. Multiplanar reformatted images were performed. VWY=799.32 mGy-cm FINDINGS: No acute bony fracture, joint dislocation, or suspicious osseous lesion is seen. The muscles throughout forearm are normal in bulk. No extracapsular mass or rim-enhancing fluid collection is seen. The vascular structures enhance normally with contrast. Severe thumb CMC osteoarthrosis is noted. IMPRESSION: 1. No acute bony abnormality of the left forearm. 2. No abnormal enhancement. SL: [id number] 04/16/2016 - - Read by: Kali Bond MD Dictated Date/time: 04/16/16 13:01 Electronically Signed by: Kali Bond MD 04/16/16 13:04 FINAL REPORT [facility] Brain wo contrast MRI Brain wo contrast MRI Patient Name: CHRISTIANO VALERIO : 1935; Age: 80 years y/o Female MR: [id number] Study: Brain wo contrast MRI 04/15/2016 5:30 PM CDT Ordering Physician: Chris Garcia MD Clinical Indication: Weakness; left hand weakness Comparison: 04/15/[address] scan of the head TECHNIQUE: Multiplanar MRI of the brain is performed on a 1.5 [place] magnet. Contrast: None. The study is somewhat compromised by motion. FINDINGS: BRAIN PARENCHYMA: Small amount of nonconfluent T2 hyperintense signal not exhibiting restricted diffusion scattered in the cerebral deep white matter. No brainstem or cerebellar lesions. No mass effect or midline shift. No extra-axial fluid collection or intracranial hemorrhage. Normal corpus callosum. No diffusion weighted imaging or ADC map abnormality to suggest acute/subacute ischemia. No magnetic susceptibility to suggest recent or remote intracranial hemorrhage. CEREBELLOPONTINE REGIONS AND SKULL BASE: The cerebellopontine angles appear unremarkable. The skull base, craniocervical junction, and brainstem are normal. The optic chiasm is normal. The sellar and pineal regions are unremarkable. VENTRICLES: The ventricles and subarachnoid spaces are prominent in a generalized fashion. VESSELS: The expected intracranial flow voids are present. 4.4 mm hypointense focus near the origin of the left M1 segment seen only on the axial T2 sequence. ORBITS, VISUALIZED PARANASAL SINUSES AND MASTOIDS: The visualized orbits and paranasal sinuses are unremarkable. Small amount of T2 hyperintense signal consistent with inflammatory change is scattered in the mastoid air cells bilaterally. IMPRESSION: 1. Cerebral atrophy. 2. Minimal changes in the cerebral deep white matter most consistent with age and/or microangiopathic disease. 3. Focal signal change near the origin of the left M1 segment. Differential considerations include partial volume artifact and aneurysm. MR angiogram of the head is recommended for further evaluation. SL: [id number] 04/16/2016 - - Read by: Kali Kessler MD Dictated Date/time: 04/16/16 15:08 Electronically Signed by: Kali Kessler MD 04/16/16 15:21 FINAL REPORT [facility] CHEM PANEL Magnesium Lvl 2.2 mg/dL 1.8 - 2.4 04/16/2016 [facility] URINE AND STOOL UA Color Ltyellow 04/16/2016 [facility] URINE AND STOOL UA Urobilinogen <=1.0 mg/dL 0.1 - 1.0 04/16/2016 [facility] URINE AND STOOL UA Sq Epi None Seen 04/16/2016 [facility] URINE AND STOOL UA RBC 1 /HPF 0 - 2 04/16/2016 [facility] URINE AND STOOL UA Amorph Belem Occasional /HPF None Seen /HPF 04/16/2016 [facility] URINE AND STOOL UA Hyal Cast 2 /LPF 0 - 2 04/16/2016 [facility] URINE AND STOOL UA Ketones Negative mg/dL Negative mg/dL 04/16/2016 [facility] URINE AND STOOL UA Bili Negative *NA* (04/15/16 7:05 PM) Negative 04/16/2016 [facility] URINE AND STOOL UA Blood Negative (04/15/16 7:05 PM) Negative 04/16/2016 [facility] URINE AND STOOL UA Leuk Est Negative (04/15/16 7:05 PM) Negative 04/16/2016 [facility] URINE AND STOOL UA WBC 1 /HPF 0 - 5 04/16/2016 [facility] URINE AND STOOL UA Nitrite Negative (04/15/16 7:05 PM) Negative 04/16/2016 [facility] URINE AND STOOL UA pH 6.0 5.0 - 8.0 04/16/2016 [facility] URINE AND STOOL UA Spec Grav 1.017 <=1.030 04/16/2016 [facility] URINE AND STOOL UA Glucose Negative mg/dL Negative mg/dL 04/16/2016 [facility] URINE AND STOOL UA Protein Negative mg/dL Negative mg/dL 04/16/2016 [facility] URINE AND STOOL UA Turbidity Clear (04/15/16 7:05 PM) Clear 04/16/2016 [facility] LIPIDS Trig 127 mg/dL <=149 mg/dL 04/15/2016 [facility] LIPIDS HDL 61 mg/dL >=61 mg/dL 04/15/2016 [facility] LIPIDS Chol 177 mg/dL <=199 mg/dL 04/15/2016 [facility] LIPIDS VLDL 25 04/15/2016 [facility] LIPIDS LDL (Calculated) 91 mg/dL <=99 mg/dL 04/15/2016 [facility] LIPIDS CHD Risk 2.90 3.90 - 5.80 04/15/2016 [facility] SPECIAL CHEMISTRY Hgb A1C 5.9 % <=5.6 % 04/15/2016 [facility] CHEM PANEL A/G Ratio 1.1 0.7 - 1.6 04/15/2016 [facility] CHEM PANEL AGAP 10.2 meq/L 10.0 - 20.0 04/15/2016 [facility] CHEM PANEL B/C Ratio 19 6 - 25 04/15/2016 [facility] CHEM PANEL Globulin 3.2 g/dL 2.7 - 4.2 04/15/2016 [facility] CHEM PANEL eGFR 80 mL/min/1.73m2 04/15/2016 Result Comment: The eGFR is calculated using the CKD-EPI formula. In most young, healthy individuals the eGFR will be >90 mL/min/1.73m2. The eGFR declines with age. An eGFR of 60-89 may be normal in some populations, particularly the elderly, for whom the CKD-EPI formula has not been extensively validated. Use of the eGFR is not recommended in the following populations: Individuals with unstable creatinine concentrations, including patients and those with serious co-morbid conditions. Patients with extremes in muscle mass or diet. The data above are obtained from the National Kidney Disease Education Program (NKDEP) which additionally recommends that when the eGFR is used in patients with extremes of body mass index for purposes of drug dosing, the eGFR should be multiplied by the estimated BMI. [facility] CHEM PANEL Calcium Lvl 9.1 mg/dL 8.5 - 10.5 04/15/2016 [facility] CHEM PANEL Potassium Lvl 4.2 meq/L 3.5 - 5.1 04/15/2016 [facility] CHEM PANEL Chloride Lvl 107 meq/L 95 - 109 04/15/2016 [facility] CHEM PANEL CO2 26 meq/L 24 - 32 04/15/2016 [facility] CHEM PANEL Total Protein 6.6 g/dL 6.4 - 8.4 04/15/2016 [facility] CHEM PANEL Alk Phos 74 unit/L 39 - 136 04/15/2016 [facility] CHEM PANEL Bili Total 0.4 mg/dL 0.2 - 1.3 04/15/2016 [facility] CHEM PANEL AST 14 unit/L 0 - 37 04/15/2016 [facility] CHEM PANEL Albumin Lvl 3.4 g/dL 3.5 - 5.0 04/15/2016 [facility] CHEM PANEL ALT 18 unit/L 0 - 65 04/15/2016 [facility] CHEM PANEL Glucose Lvl 95 mg/dL 70 - 99 04/15/2016 [facility] CHEM PANEL Creatinine Lvl 0.72 mg/dL 0.50 - 1.40 04/15/2016 [facility] CHEM PANEL BUN 14 mg/dL 7 - 22 04/15/2016 [facility] CHEM PANEL Sodium Lvl 139 meq/L 135 - 145 04/15/2016 [facility] HEMATOLOGY INR 0.93 0.85 - 1.17 04/15/2016 [facility] HEMATOLOGY PTT 33.7 s 22.9 - 35.8 04/15/2016 [facility] HEMATOLOGY PT 12.7 s 12.0 - 14.7 04/15/2016 [facility] HEMATOLOGY Hct 40.1 % 36.0 - 48.0 04/15/2016 [facility] HEMATOLOGY RBC 4.30 M/CMM 4.20 - 5.40 04/15/2016 [facility] HEMATOLOGY MCV 93.1 fL 80.0 - 98.0 04/15/2016 [facility] HEMATOLOGY WBC 6.2 K/CMM 3.7 - 10.4 04/15/2016 [facility] Hgb 13.3 g/dL 12.0 - 16.0 04/15/2016 [facility] HEMATOLOGY MPV 8.0 fL 7.4 - 10.4 04/15/2016 [facility] MCHC 33.1 g/dL 32.0 - 36.0 04/15/2016 [facility] Platelet 175 K/CMM 133 - 450 04/15/2016 [facility] MCH 30.8 pg 27.0 - 31.0 04/15/2016 [facility] RDW 13.5 % 11.5 - 14.5 04/15/2016 [facility] Basophils # 0.1 K/CMM 0.0 - 0.2 04/15/2016 [facility] HEMATOLOGY Eosinophils # 0.1 K/CMM 0.0 - 0.5 04/15/2016 [facility] Monocytes # 0.5 K/CMM 0.0 - 0.8 04/15/2016 [facility] Lymphocytes # 1.7 K/CMM 1.0 - 5.5 04/15/2016 [facility] Segs-Bands # 3.8 K/CMM 1.5 - 8.1 04/15/2016 [facility] Basophils 1.5 % 0.0 - 1.0 04/15/2016 [facility] Lymphocytes 27.7 % 20.0 - 40.0 04/15/2016 [facility] Eosinophils 1.3 % 0.0 - 4.0 04/15/2016 [facility] Segs 61.6 % 45.0 - 75.0 04/15/2016 [facility] Monocytes 7.9 % 2.0 - 12.0 04/15/2016 [facility] Brain wo contrast CT Brain wo contrast CT Patient Name: CHRISTIANO VALERIO : 1935; Age: 80 years Female MR: [id number] Study: Brain wo contrast CT 04/15/2016 10:55 AM CDT Clinical Indication: Weakness. Weakness left wrist. Pt. c/o right hand weakness since 10 pm last night. Unable to flex right hand upwards. Denies pain or numbness no weakness or sensory deficits anywhere else. Pt. a\\T\\o x4. COMPARISON: 06/19/2006. TECHNIQUE: CT images were obtained from the foramen magnum to the vertex without the use of intravenous contrast on a multidetector CT. Coronal and sagittal reconstructions were obtained. Motion artifact limits detail. FINDINGS: BRAIN PARENCHYMA: Chronic right basal ganglia lacunar infarction. There is generalized brain parenchymal atrophy related to the patient's age. Nonspecific periventricular white matter disease changes are noted. Atherosclerotic calcifications are present within the carotid siphons and distal vertebral arteries. There are no focal mass lesions on this noncontrast head CT. There is no mass effect, midline shift or edema. There are no intra-axial or extra-axial fluid collections. There is no intraventricular or intraparenchymal hemorrhage. There is no noncontrast CT evidence of a subacute stroke. The pineal, sellar, brainstem, cerebellum and skull base regions appear normal. VENTRICLES: The lateral ventricles, third and fourth ventricles appear normal. The basilar cisterns are normal. ORBITS, MASTOIDS AND PARANASAL SINUSES: The visualized orbits are normal. The visualized paranasal sinuses are normal. The mastoid air cells are clear. SKULL: There are no calvarial abnormalities seen. If there is further concern for intracranial pathology or acute stroke, MRI of the brain may be performed for complete assessment. IMPRESSION: Chronic age-related and small vessel ischemic changes without mass, hemorrhage or subacute stroke. SL: [id number] 04/15/2016 - - Read by: Manoj Bragg MD Dictated Date/time: 04/15/16 12:00 Electronically Signed by: Manoj Bragg MD 04/15/16 12:02 FINAL REPORT [facility] Forearm 2 views DX Forearm 2 views DX Patient Name: CHRISTIANO VALERIO : 1935; Age: 80 years y/o Female MR: [id number] Study: 2 view left forearm 04/15/2016 8:43 AM CDT Ordering Physician: Maximiliano Valdez Clinical Indication: Limitation of movement; unable to flex left wrist Comparison: None Discussion: Generalized bony osteopenia. No fracture identified. Negative ulnar variance. Degenerative changes involve the joint between the scaphoid and trapezium bones and the 1st carpometacarpal joint. No other significant findings identified. IMPRESSION: No acute bony injury. SL: [id number] 04/15/2016 - - Read by: Kali Kessler MD Dictated Date/time: 04/15/16 09:33 Electronically Signed by: Kali Kessler MD 04/15/16 09:35 FINAL REPORT [facility] Ext Lower Venous Doppler Unilat US Ext Lower Venous Doppler Unilat US EXAM: Right lower extremity venous Doppler ultrasound HISTORY: Right calf pain COMPARISON: Ultrasound 10/05/2006 TECHNIQUE: Sonographic evaluation of the right lower extremity deep veins was performed using high resolution B-mode imaging, along with pulse and color Doppler imaging. FINDINGS: The common femoral, femoral and popliteal veins and greater saphenous and posterior tibial veins are patent. IMPRESSION: No deep vein thrombosis is seen in the right lower extremity. SL: [id number] 03/23/2016 - - Read by: Juan Jose Brar MD Dictated Date/time: 03/23/16 14:56 Electronically Signed by: Juan Jose Brar MD 03/23/16 14:57 FINAL REPORT [facility] CARDIAC ENZYMES BNP 109 pg/mL <=100 pg/mL 11/25/2014 3Interpretive Data: Elevated results are in line with increasing severity of congestive heart failure. Minor elevations between 100 and 300 may be seen with Myocardial Ischemia, Sodium retaining drugs, and compensated/treated heart failure. [facility] ELECTROLYTES AGAP 9.1 meq/L 10.0 - 20.0 11/25/2014 [facility] ELECTROLYTES eGFR 54 mL/min/1.73m2 11/25/2014 1Result Comment: The eGFR is calculated using the CKD-EPI formula. In most young, healthy individuals the eGFR will be >90 mL/min/1.73m2. The eGFR declines with age. An eGFR of 60-89 may be normal in some populations, particularly the elderly, for whom the CKD-EPI formula has not been extensively validated. Use of the eGFR is not recommended in the following populations: Individuals with unstable creatinine concentrations, including patients and those with serious co-morbid conditions. Patients with extremes in muscle mass or diet. The data above are obtained from the National Kidney Disease Education Program (NKDEP) which additionally recommends that when the eGFR is used in patients with extremes of body mass index for purposes of drug dosing, the eGFR should be multiplied by the estimated BMI. [facility] ELECTROLYTES CO2 35 meq/L 24 - 32 11/25/2014 [facility] ELECTROLYTES Creatinine Lvl 1.0 mg/dL 0.5 - 1.4 11/25/2014 [facility] ELECTROLYTES BUN 24 mg/dL 7 - 22 11/25/2014 [facility] ELECTROLYTES Glucose Lvl 138 mg/dL 70 - 99 11/25/2014 2Interpretive Data: Adult reference range values reflect the clinical guidelines of the [place] [employer] Association. [facility] ELECTROLYTES Sodium Lvl 138 meq/L 135 - 145 11/25/2014 [facility] ELECTROLYTES Potassium Lvl 4.1 meq/L 3.5 - 5.1 11/25/2014 [facility] ELECTROLYTES Chloride Lvl 98 meq/L 95 - 109 11/25/2014 [facility] ELECTROLYTES Calcium Lvl 9.4 mg/dL 8.5 - 10.5 11/25/2014 [facility] CARDIAC ENZYMES BNP 156 pg/mL <=100 pg/mL 10/06/2014 3Interpretive Data: Elevated results are in line with increasing severity of congestive heart failure. Minor elevations between 100 and 300 may be seen with Myocardial Ischemia, Sodium retaining drugs, and compensated/treated heart failure. [facility] CHEM PANEL B/C Ratio 19 6 - 25 10/06/2014 [facility] CHEM PANEL AGAP 11.8 meq/L 10.0 - 20.0 10/06/2014 [facility] CHEM PANEL Globulin 4.4 g/dL 2.0 - 4.0 10/06/2014 [facility] CHEM PANEL A/G Ratio 0.8 0.7 - 1.6 10/06/2014 [facility] CHEM PANEL eGFR 48 mL/min/1.73m2 10/06/2014 1Result Comment: The eGFR is calculated using the CKD-EPI formula. In most young, healthy individuals the eGFR will be >90 mL/min/1.73m2. The eGFR declines with age. An eGFR of 60-89 may be normal in some populations, particularly the elderly, for whom the CKD-EPI formula has not been extensively validated. Use of the eGFR is not recommended in the following populations: Individuals with unstable creatinine concentrations, including patients and those with serious co-morbid conditions. Patients with extremes in muscle mass or diet. The data above are obtained from the National Kidney Disease Education Program (NKDEP) which additionally recommends that when the eGFR is used in patients with extremes of body mass index for purposes of drug dosing, the eGFR should be multiplied by the estimated BMI. [facility] CHEM PANEL Bili Total 0.3 mg/dL 0.2 - 1.3 10/06/2014 [facility] CHEM PANEL Alk Phos 88 unit/L 39 - 136 10/06/2014 [facility] CHEM PANEL AST 19 unit/L 0 - 37 10/06/2014 [facility] CHEM PANEL Creatinine Lvl 1.1 mg/dL 0.5 - 1.4 10/06/2014 [facility] CHEM PANEL CO2 32 meq/L 24 - 32 10/06/2014 [facility] CHEM PANEL Calcium Lvl 9.3 mg/dL 8.5 - 10.5 10/06/2014 [facility] CHEM PANEL BUN 21 mg/dL 7 - 22 10/06/2014 [facility] CHEM PANEL Albumin Lvl 3.4 g/dL 3.5 - 5.0 10/06/2014 [facility] CHEM PANEL ALT 10 unit/L 0 - 65 10/06/2014 [facility] CHEM PANEL Total Protein 7.8 g/dL 6.4 - 8.4 10/06/2014 [facility] CHEM PANEL Glucose Lvl 149 mg/dL 70 - 99 10/06/2014 2Interpretive Data: Adult reference range values reflect the clinical guidelines of the [place] [employer]. [facility] CHEM PANEL Potassium Lvl 3.8 meq/L 3.5 - 5.1 10/06/2014 [facility] CHEM PANEL Sodium Lvl 138 meq/L 135 - 145 10/06/2014 [facility] CHEM PANEL Chloride Lvl 98 meq/L 95 - 109 10/06/2014 [facility] HEMATOLOGY Monocytes # 0.7 K/CMM 0.0 - 0.8 10/06/2014 [facility] HEMATOLOGY Monocytes 10.0 % 2.0 - 12.0 10/06/2014 [facility] HEMATOLOGY Lymphocytes 22.7 % 20.0 - 40.0 10/06/2014 [facility] HEMATOLOGY Eosinophils 1.4 % 0.0 - 4.0 10/06/2014 [facility] HEMATOLOGY Segs-Bands # 4.7 K/CMM 1.5 - 8.1 10/06/2014 [facility] HEMATOLOGY Lymphocytes # 1.6 K/CMM 1.0 - 5.5 10/06/2014 [facility] HEMATOLOGY Basophils # 0.1 K/CMM 0.0 - 0.2 10/06/2014 [facility] HEMATOLOGY Basophils 1.1 % 0.0 - 1.0 10/06/2014 [facility] HEMATOLOGY Eosinophils # 0.1 K/CMM 0.0 - 0.5 10/06/2014 [facility] HEMATOLOGY Segs 64.8 % 45.0 - 75.0 10/06/2014 [facility] HEMATOLOGY MCV 90.2 fL 80.0 - 98.0 10/06/2014 [facility] HEMATOLOGY MCH 31.0 pg 27.0 - 31.0 10/06/2014 [facility] HEMATOLOGY Hct 35.9 % 36.0 - 48.0 10/06/2014 [facility] HEMATOLOGY Platelet 310 K/CMM 133 - 450 10/06/2014 [facility] MCHC 34.3 g/dL 32.0 - 36.0 10/06/2014 [facility] HEMATOLOGY RDW 13.8 % 11.5 - 14.5 10/06/2014 [facility] MPV 7.5 fL 7.4 - 10.4 10/06/2014 [facility] Hgb 12.3 g/dL 12.0 - 16.0 10/06/2014 [facility] WBC 7.2 K/CMM 3.7 - 10.4 10/06/2014 [facility] RBC 3.98 M/CMM 4.20 - 5.40 10/06/2014 [facility] Digital Mammo Screen Neftali MA w dominic Digital Mammo Screen Neftali MA w dominic - DIGITAL MAMMO SCREEN NEFTALI MA W DOMINIC BILATERAL DIGITAL SCREENING MAMMOGRAM 3D/2D WITH CAD: 06/23/2014 CLINICAL: Screen. 2D digital mammographic images and 3D digital tomosynthesis images were obtained in the CC and MLO projections. Current study was evaluated with a Computer Aided Detection (CAD) system. Comparison is made to exams dated: 03/26/2013 mammogram, 03/22/2012 mammogram, 10/14/2010 mammogram, 10/01/2009 mammogram, 03/11/2008 mammogram and 03/30/2006 mammogram - [facility]. There are scattered fibroglandular densities in both breasts. There are benign vascular calcifications in both breasts. There also are benign scattered calcifications in both breasts. No significant masses, calcifications, or other findings are seen in either breast. There has been no significant interval change. IMPRESSION: BENIGN There is no mammographic evidence of malignancy. A screening mammogram in one year is recommended. Walker tidwell/penrad:06/24/2014 08:12:31 Solar Consultant: Pooja Ames, [facility] This exam was dictated and interpreted by [id number] for [facility]. letter sent: Normal exam Mammogram BI-RADS: 2 Benign 06/23/2014 - - Read by: Walker Calderon MD Dictated Date/time: 06/24/14 08:12 Electronically Signed by: Walker Calderon MD 06/24/14 08:12 FINAL REPORT [facility] Aorta US Aorta US AORTA ULTRASOUND HISTORY: AAA. COMPARISON: Aortic ultrasound dated 03/22/2012 TECHNIQUE: Multiple static transabdominal images of the aorta are submitted for review. FINDINGS: The visualized portion of the aorta demonstrates normal morphology. The caliber of the proximal aorta is 1.9 x 1.9 cm, mid abdominal aorta 1.9 x 1.8 cm and distally it measures 1.3 x 1.4 cm. There is appropriate flow noted on the color Doppler and spectral Doppler images. There is no sonographic evidence for AAA. Aortic bifurcation and common iliacs not well visualized. IMPRESSION: Negative Aorta US. No sonographic evidence for AAA. SL: 03/12/2013 - - Read by: Denzel Castillo Dictated Date/time: 03/12/13 16:08 Electronically Signed by: Denzel Castillo MD 03/12/13 16:12 FINAL REPORT [facility] Carotid artery bilateral Duplex US Carotid artery bilateral Duplex US HISTORY: Coronary artery disease. Note: "Any reported ICA stenoses indirectly reference the distal internal carotid diameter as the denominator for stenosis measurement, using consensus panel criteria." Right ICA peak systolic velocity 1.2 m/sec. Left ICA peak systolic velocity 1.37 m/sec. The internal to common carotid artery systolic velocity ratios 1.4 on the right and 1.3 on the left. There is antegrade vertebral artery flow bilaterally. Color flow and grayscale images demonstrate mild to moderate eccentric plaque in the left carotid bulb, mild plaque in the right ICA. IMPRESSION: Less than 50% stenosis in the ICA bilaterally by sonographic criteria. SL:03/12/2013 - - Read by: Claudio Lowe Dictated Date/time: 03/12/13 15:58 Electronically Signed by: Claudio Lowe MD 03/12/13 16:00 FINAL REPORT [facility] Vital Signs Vital Sign Value Date Comments Source Weight 167 04/30/2018 [facility] Height 63 04/30/2018 [facility] Heart Rate 85 04/30/2018 [facility] Diastolic (mm Hg) 72 04/30/2018 [facility] Systolic (mm Hg) 116 04/30/2018 [facility] Weight 168 12/21/2017 [facility] Height 63 12/21/2017 [facility] Temperature Oral (F) 98.1 F 12/21/2017 [facility] Heart Rate 101 12/21/2017 [facility] Diastolic (mm Hg) 62 12/21/2017 [facility] Systolic (mm Hg) 108 12/21/2017 [facility] Weight 168 12/13/2017 [facility] Height 63 12/13/2017 [facility] Temperature Oral (F) 98.2 F 12/13/2017 [facility] Heart Rate 72 12/13/2017 [facility] Diastolic (mm Hg) 62 12/13/2017 [facility] Systolic (mm Hg) 122 12/13/2017 [facility] Weight 164 08/30/2017 [facility] Height 63 08/30/2017 [facility] Heart Rate 92 08/30/2017 [facility] Diastolic (mm Hg) 70 08/30/2017 [facility] Systolic (mm Hg) 120 08/30/2017 [facility] Weight 164 08/07/2017 [facility] Height 63 08/07/2017 [facility] Heart Rate 102 08/07/2017 [facility] Diastolic (mm Hg) 76 08/07/2017 [facility] Systolic (mm Hg) 118 08/07/2017 [facility] Heart Rate 80 07/06/2017 [facility] Respitory Rate 20 07/06/2017 [facility] Temperature Oral (F) 97.9 F 07/06/2017 [facility] Systolic (mm Hg) 105 07/06/2017 [facility] Diastolic (mm Hg) 61 07/06/2017 [facility] Respitory Rate 20 07/06/2017 [facility] Temperature Oral (F) 97.3 F 07/06/2017 [facility] Heart Rate 72 07/06/2017 [facility] Respitory Rate 20 07/06/2017 [facility] Systolic (mm Hg) 108 07/06/2017 [facility] Diastolic (mm Hg) 63 07/06/2017 [facility] Systolic (mm Hg) 123 07/06/2017 [facility] Diastolic (mm Hg) 65 07/06/2017 [facility] Heart Rate 102 07/06/2017 [facility] Temperature Oral (F) 98.1 F 07/06/2017 [facility] BMI Calculated 29.89 07/05/2017 [facility] Weight 76.534 07/05/2017 [facility] Height 160.02 cm 07/05/2017 [facility] BMI Calculated 30.07 07/04/2017 [facility] Weight 77 07/04/2017 [facility] Height 160.02 cm 07/04/2017 [facility] Weight 167 05/08/2017 [facility] Height 63 05/08/2017 [facility] Heart Rate 86 05/08/2017 [facility] Diastolic (mm Hg) 64 05/08/2017 [facility] Systolic (mm Hg) 114 05/08/2017 [facility] Respitory Rate 20 04/30/2017 [facility] Systolic (mm Hg) 108 04/30/2017 [facility] Diastolic (mm Hg) 66 04/30/2017 [facility] Temperature Oral (F) 98 F 04/30/2017 [facility] Respitory Rate 27 04/30/2017 [facility] Respitory Rate 24 04/30/2017 [facility] Systolic (mm Hg) 117 04/30/2017 [facility] Diastolic (mm Hg) 75 04/30/2017 [facility] Temperature Oral (F) 97.9 F 04/30/2017 [facility] Systolic (mm Hg) 115 04/30/2017 [facility] Diastolic (mm Hg) 70 04/30/2017 [facility] Temperature Oral (F) 98.0 F 04/30/2017 [facility] Heart Rate 95 04/28/2017 [facility] Height 157.48 cm 04/28/2017 [facility] BMI Calculated 30.24 04/28/2017 [facility] Weight 75 04/28/2017 [facility] Heart Rate 99 04/28/2017 [facility] Heart Rate 92 04/28/2017 [facility] BMI Calculated 30.24 04/27/2017 [facility] Weight 75 04/27/2017 [facility] Height 157.48 cm 04/27/2017 [facility] Weight 169 04/27/2017 [facility] Height 63 04/27/2017 [facility] Heart Rate 111 04/27/2017 [facility] Diastolic (mm Hg) 58 04/27/2017 [facility] Systolic (mm Hg) 100 04/27/2017 [facility] Weight 166 04/24/2017 [facility] Height 63 04/24/2017 [facility] Heart Rate 110 04/24/2017 [facility] Diastolic (mm Hg) 58 04/24/2017 [facility] Systolic (mm Hg) 96 04/24/2017 [facility] Weight 163 02/15/2017 [facility] Height 63 02/15/2017 [facility] Heart Rate 64 02/15/2017 [facility] Diastolic (mm Hg) 64 02/15/2017 [facility] Systolic (mm Hg) 100 02/15/2017 [facility] Weight 165 10/16/2016 [facility] Height 63 10/16/2016 [facility] Heart Rate 80 10/16/2016 [facility] Diastolic (mm Hg) 59 10/16/2016 [facility] Systolic (mm Hg) 112 10/16/2016 [facility] Weight 169 08/01/2016 [facility] Height 63 08/01/2016 [facility] Heart Rate 88 08/01/2016 [facility] Diastolic (mm Hg) 56 08/01/2016 [facility] Systolic (mm Hg) 118 08/01/2016 [facility] Weight 165 04/24/2016 [facility] Height 63 04/24/2016 [facility] Heart Rate 84 04/24/2016 [facility] Diastolic (mm Hg) 68 04/24/2016 [facility] Systolic (mm Hg) 116 04/24/2016 [facility] Respitory Rate 18 04/17/2016 [facility] Systolic (mm Hg) 111 04/17/2016 [facility] Diastolic (mm Hg) 62 04/17/2016 [facility] Temperature Oral (F) 98.1 F 04/17/2016 [facility] Heart Rate 66 04/17/2016 [facility] Heart Rate 68 04/17/2016 [facility] Respitory Rate 16 04/17/2016 [facility] Temperature Oral (F) 97.8 F 04/17/2016 [facility] Systolic (mm Hg) 128 04/17/2016 [facility] Diastolic (mm Hg) 66 04/17/2016 [facility] Respitory Rate 16 04/17/2016 [facility] Systolic (mm Hg) 103 04/17/2016 [facility] Diastolic (mm Hg) 58 04/17/2016 [facility] Heart Rate 65 04/17/2016 [facility] Temperature Oral (F) 97.5 F 04/17/2016 [facility] Height 157.48 cm 04/15/2016 [facility] BMI Calculated 30.06 04/15/2016 [facility] Weight 74.545 04/15/2016 [facility] Weight 165 03/24/2016 [facility] Height 63 03/24/2016 [facility] Heart Rate 73 03/24/2016 [facility] Diastolic (mm Hg) 60 03/24/2016 [facility] Systolic (mm Hg) 124 03/24/2016 [facility] Weight 166 03/23/2016 [facility] Height 63 03/23/2016 [facility] Heart Rate 94 03/23/2016 [facility] Diastolic (mm Hg) 62 03/23/2016 [facility] Systolic (mm Hg) 110 03/23/2016 [facility] Weight 155 08/12/2015 [facility] Height 63 08/12/2015 [facility] Heart Rate 74 08/12/2015 [facility] Diastolic (mm Hg) 62 08/12/2015 [facility] Systolic (mm Hg) 122 08/12/2015 [facility] Weight 159 12/03/2014 [facility] Height 63 12/03/2014 [facility] Heart Rate 80 12/03/2014 [facility] Diastolic (mm Hg) 60 12/03/2014 [facility] Systolic (mm Hg) 130 12/03/2014 [facility] Respitory Rate 16 10/13/2014 [facility] Systolic (mm Hg) 109 10/13/2014 [facility] Diastolic (mm Hg) 52 10/13/2014 [facility] Systolic (mm Hg) 96 10/13/2014 [facility] Diastolic (mm Hg) 51 10/13/2014 [facility] Respitory Rate 17 10/13/2014 [facility] Systolic (mm Hg) 107 10/13/2014 [facility] Diastolic (mm Hg) 58 10/13/2014 [facility] Respitory Rate 16 10/13/2014 [facility] Weight 67.727 10/06/2014 [facility] Height 160.02 cm 10/06/2014 [facility] BMI Calculated 26.45 10/06/2014 [facility] Weight 161 08/04/2014 [facility] Height 63 08/04/2014 [facility] Heart Rate 86 08/04/2014 [facility] Diastolic (mm Hg) 70 08/04/2014 [facility] Systolic (mm Hg) 138 08/04/2014 [facility] Weight 153 06/25/2014 [facility] Height 63 06/25/2014 [facility] Temperature Oral (F) 98.0 F 06/25/2014 [facility] Heart Rate 82 06/25/2014 [facility] Diastolic (mm Hg) 60 06/25/2014 [facility] Systolic (mm Hg) 124 06/25/2014 [facility] Weight 153 05/07/2014 [facility] Height 63 05/07/2014 [facility] Temperature Oral (F) 98.1 F 05/07/2014 [facility] Heart Rate 66 05/07/2014 [facility] Diastolic (mm Hg) 70 05/07/2014 [facility] Systolic (mm Hg) 126 05/07/2014 [facility] Weight 158 05/01/2014 [facility] Height 63 05/01/2014 [facility] Temperature Oral (F) 97.8 F 05/01/2014 [facility] Heart Rate 108 05/01/2014 [facility] Diastolic (mm Hg) 68 05/01/2014 [facility] Systolic (mm Hg) 126 05/01/2014 [facility] Weight 158 04/30/2014 [facility] Height 63 04/30/2014 [facility] Temperature Oral (F) 98.3 F 04/30/2014 [facility] Heart Rate 80 04/30/2014 [facility] Diastolic (mm Hg) 62 04/30/2014 [facility] Systolic (mm Hg) 128 04/30/2014 [facility] Weight 153 03/18/2013 [facility] Height 63 03/18/2013 [facility] Heart Rate 62 03/18/2013 [facility] Diastolic (mm Hg) 68 03/18/2013 [facility] Systolic (mm Hg) 110 03/18/2013 [facility] Weight 153 03/05/2013 [facility] Height 63 03/05/2013 [facility] Temperature Oral (F) 98.0 F 03/05/2013 [facility] Heart Rate 64 03/05/2013 [facility] Diastolic (mm Hg) 68 03/05/2013 [facility] Systolic (mm Hg) 110 03/05/2013 [facility] Encounters Location Location Details Encounter Type Encounter Number Reason For Visit Attending Provider ADM Date DC Date Status Source [facility] PHYSICAL [id number] 03/05/2013 03/05/2013 [facility] PHYSICAL [id number] 03/05/2013 03/05/2013 [facility] PHYSICAL [id number] 03/05/2013 03/05/2013 [facility] PHYSICAL [id number] 03/05/2013 03/05/2013 [facility] PHYSICAL [id number] 03/05/2013 03/05/2013 [facility] [facility] [id number] 03/05/2013 03/05/2013 [facility] PHYSICAL [id number] 03/05/2013 03/05/2013 [facility] PHYSICAL [id number] 03/05/2013 03/05/2013 [facility] PHYSICAL [id number] 03/05/2013 03/05/2013 [facility] PHYSICAL [id number] 03/05/2013 03/05/2013 [facility] PHYSICAL [id number] 03/05/2013 03/05/2013 [facility] PHYSICAL [id number] 03/05/2013 03/05/2013 [facility] PHYSICAL [id number] 03/05/2013 03/05/2013 [facility] PHYSICAL [id number] 03/05/2013 03/05/2013 [facility] PHYSICAL [id number] 03/05/2013 03/05/2013 [facility] PHYSICAL [id number] 03/05/2013 03/05/2013 [facility] PHYSICAL [id number] 03/05/2013 03/05/2013 [facility] PHYSICAL [id number] 03/05/2013 03/05/2013 [facility] PHYSICAL [id number] 03/05/2013 03/05/2013 [facility] PHYSICAL [id number] 03/05/2013 03/05/2013 [facility] PHYSICAL [id number] 03/05/2013 03/05/2013 [facility] Other [id number] 03/11/2013 03/11/2013 [facility] Other [id number] 03/11/2013 03/11/2013 [facility] Other [id number] 03/11/2013 03/11/2013 [facility] Other [id number] 03/11/2013 03/11/2013 [facility] Other [id number] 03/11/2013 03/11/2013 [facility] Other [id number] 03/11/2013 03/11/2013 [facility] Other [id number] 03/11/2013 03/11/2013 [facility] Other [id number] 03/11/2013 03/11/2013 [facility] Other [id number] 03/11/2013 03/11/2013 [facility] Other [id number] 03/11/2013 03/11/2013 [facility] Other [id number] 03/11/2013 03/11/2013 [facility] Other [id number] 03/11/2013 03/11/2013 [facility] Other [id number] 03/11/2013 03/11/2013 [facility] Other [id number] 03/11/2013 03/11/2013 [facility] Other [id number] 03/11/2013 03/11/2013 [facility] Other [id number] 03/11/2013 03/11/2013 [facility] Other [id number] 03/11/2013 03/11/2013 [facility] Other [id number] 03/11/2013 03/11/2013 [facility] Other [id number] 03/11/2013 03/11/2013 [facility] Other [id number] 03/11/2013 03/11/2013 [facility] Other [id number] 03/11/2013 03/11/2013 [facility] Other [id number] 03/11/2013 03/11/2013 [facility] Other [id number] 03/11/2013 03/11/2013 [facility] Outpatient [id number] 441.4 AAA, 447.9 CAROTID ARTERY DISEASE ALYSON BLAIR 03/12/2013 [facility] Test results [id number] 03/12/2013 03/12/2013 [facility] Test results [id number] 03/12/2013 03/12/2013 [facility] Test results [id number] 03/12/2013 03/12/2013 [facility] Test results [id number] 03/12/2013 03/12/2013 [facility] Test results [id number] 03/12/2013 03/12/2013 [facility] Test results [id number] 03/12/2013 03/12/2013 [facility] Test results [id number] 03/12/2013 03/12/2013 [facility] Test results [id number] 03/12/2013 03/12/2013 [facility] Test results [id number] 03/12/2013 03/12/2013 [facility] Test results [id number] 03/12/2013 03/12/2013 [facility] Test results [id number] 03/12/2013 03/12/2013 [facility] Test results [id number] 03/12/2013 03/12/2013 [facility] Test results [id number] 03/12/2013 03/12/2013 [facility] Test results [id number] 03/12/2013 03/12/2013 [facility] Test results [id number] 03/12/2013 03/12/2013 [facility] Test results [id number] 03/12/2013 03/12/2013 [facility] Test results [id number] 03/12/2013 03/12/2013 [facility] Test results [id number] 03/12/2013 03/12/2013 [facility] Test results [id number] 03/12/2013 03/12/2013 [facility] Test results [id number] 03/12/2013 03/12/2013 [facility] Test results [id number] 03/12/2013 03/12/2013 [facility] Test results [id number] 03/12/2013 03/12/2013 [facility] Test results [id number] 03/12/2013 03/12/2013 [facility] RESULTS [id number] 03/18/2013 03/18/2013 [facility] RESULTS [id number] 03/18/2013 03/18/2013 [facility] RESULTS [id number] 03/18/2013 03/18/2013 [facility] RESULTS [id number] 03/18/2013 03/18/2013 [facility] RESULTS [id number] 03/18/2013 03/18/2013 [facility] RESULTS [id number] 03/18/2013 03/18/2013 [facility] RESULTS [id number] 03/18/2013 03/18/2013 [facility] RESULTS [id number] 03/18/2013 03/18/2013 [facility] RESULTS [id number] 03/18/2013 03/18/2013 [facility] RESULTS [id number] 03/18/2013 03/18/2013 [facility] RESULTS [id number] 03/18/2013 03/18/2013 [facility] RESULTS [id number] 03/18/2013 03/18/2013 [facility] RESULTS [id number] 03/18/2013 03/18/2013 [facility] RESULTS [id number] 03/18/2013 03/18/2013 [facility] RESULTS [id number] 03/18/2013 03/18/2013 [facility] RESULTS [id number] 03/18/2013 03/18/2013 [facility] RESULTS [id number] 03/18/2013 03/18/2013 [facility] RESULTS [id number] 03/18/2013 03/18/2013 [facility] RESULTS [id number] 03/18/2013 03/18/2013 [facility] RESULTS [id number] 03/18/2013 03/18/2013 [facility] RESULTS [id number] 03/18/2013 03/18/2013 [facility] CONGESTION/SINUS [id number] 04/30/2014 04/30/2014 [facility] CONGESTION/SINUS [id number] 04/30/2014 04/30/2014 [facility] CONGESTION/SINUS [id number] 04/30/2014 04/30/2014 [facility] CONGESTION/SINUS [id number] 04/30/2014 04/30/2014 [facility] CONGESTION/SINUS [id number] 04/30/2014 04/30/2014 [facility] CONGESTION/SINUS [id number] 04/30/2014 04/30/2014 [facility] CONGESTION/SINUS [id number] 04/30/2014 04/30/2014 [facility] CONGESTION/SINUS [id number] 04/30/2014 04/30/2014 [facility] CONGESTION/SINUS [id number] 04/30/2014 04/30/2014 [facility] CONGESTION/SINUS [id number] 04/30/2014 04/30/2014 [facility] CONGESTION/SINUS [id number] 04/30/2014 04/30/2014 [facility] CONGESTION/SINUS [id number] 04/30/2014 04/30/2014 [facility] CONGESTION/SINUS [id number] 04/30/2014 04/30/2014 [facility] CONGESTION/SINUS [id number] 04/30/2014 04/30/2014 [facility] CONGESTION/SINUS [id number] 04/30/2014 04/30/2014 [facility] CONGESTION/SINUS [id number] 04/30/2014 04/30/2014 [facility] CONGESTION/SINUS [id number] 04/30/2014 04/30/2014 [facility] CONGESTION/SINUS [id number] 04/30/2014 04/30/2014 [facility] CONGESTION/SINUS [id number] 04/30/2014 04/30/2014 [facility] 1 day follow up [id number] 05/01/2014 05/01/2014 [facility] 1 day follow up [id number] 05/01/2014 05/01/2014 [facility] 1 day follow up [id number] 05/01/2014 05/01/2014 [facility] 1 day follow up [id number] 05/01/2014 05/01/2014 [facility] 1 day follow up [id number] 05/01/2014 05/01/2014 [facility] 1 day follow up [id number] 05/01/2014 05/01/2014 [facility] 1 day follow up [id number] 05/01/2014 05/01/2014 [facility] 1 day follow up [id number] 05/01/2014 05/01/2014 [facility] 1 day follow up [id number] 05/01/2014 05/01/2014 [facility] 1 day follow up [id number] 05/01/2014 05/01/2014 [facility] 1 day follow up [id number] 05/01/2014 05/01/2014 [facility] 1 day follow up [id number] 05/01/2014 05/01/2014 [facility] 1 day follow up [id number] 05/01/2014 05/01/2014 [facility] 1 day follow up [id number] 05/01/2014 05/01/2014 [facility] 1 day follow up [id number] 05/01/2014 05/01/2014 [facility] 1 day follow up [id number] 05/01/2014 05/01/2014 [facility] 1 day follow up [id number] 05/01/2014 05/01/2014 [facility] 1 day follow up [id number] 05/01/2014 05/01/2014 [facility] 1 day follow up [id number] 05/01/2014 05/01/2014 [facility] follow up on breathing [id number] 05/07/2014 05/07/2014 [facility] follow up on breathing [id number] 05/07/2014 05/07/2014 [facility] follow up on breathing [id number] 05/07/2014 05/07/2014 [facility] follow up on breathing [id number] 05/07/2014 05/07/2014 [facility] follow up on breathing [id number] 05/07/2014 05/07/2014 [facility] follow up on breathing [id number] 05/07/2014 05/07/2014 [facility] follow up on breathing [id number] 05/07/2014 05/07/2014 [facility] follow up on breathing [id number] 05/07/2014 05/07/2014 [facility] follow up on breathing [id number] 05/07/2014 05/07/2014 [facility] follow up on breathing [id number] 05/07/2014 05/07/2014 [facility] follow up on breathing [id number] 05/07/2014 05/07/2014 [facility] follow up on breathing [id number] 05/07/2014 05/07/2014 [facility] follow up on breathing [id number] 05/07/2014 05/07/2014 [facility] follow up on breathing [id number] 05/07/2014 05/07/2014 [facility] follow up on breathing [id number] 05/07/2014 05/07/2014 [facility] follow up on breathing [id number] 05/07/2014 05/07/2014 [facility] follow up on breathing [id number] 05/07/2014 05/07/2014 [facility] follow up on breathing [id number] 05/07/2014 05/07/2014 [facility] follow up on breathing [id number] 05/07/2014 05/07/2014 [facility] Outpatient [id number] Alyson Delfin 06/23/2014 06/24/2014 [facility] physical exam and fbw [id number] 06/25/2014 06/25/2014 [facility] physical exam and fbw [id number] 06/25/2014 06/25/2014 [facility] physical exam and fbw [id number] 06/25/2014 06/25/2014 [facility] physical exam and fbw [id number] 06/25/2014 06/25/2014 [facility] physical exam and fbw [id number] 06/25/2014 06/25/2014 [facility] physical exam and fbw [id number] 06/25/2014 06/25/2014 [facility] physical exam and fbw [id number] 06/25/2014 06/25/2014 [facility] physical exam and fbw [id number] 06/25/2014 06/25/2014 [facility] physical exam and fbw [id number] 06/25/2014 06/25/2014 [facility] physical exam and fbw [id number] 06/25/2014 06/25/2014 [facility] physical exam and fbw [id number] 06/25/2014 06/25/2014 [facility] physical exam and fbw [id number] 06/25/2014 06/25/2014 [facility] physical exam and fbw [id number] 06/25/2014 06/25/2014 [facility] physical exam and fbw [id number] 06/25/2014 06/25/2014 [facility] physical exam and fbw [id number] 06/25/2014 06/25/2014 [facility] physical exam and fbw [id number] 06/25/2014 06/25/2014 [facility] [id number] 07/15/2014 07/15/2014 [facility] [id number] 07/15/2014 07/15/2014 [facility] [id number] 07/15/2014 07/15/2014 [facility] [id number] 07/15/2014 07/15/2014 [facility] [id number] 07/15/2014 07/15/2014 [facility] [id number] 07/15/2014 07/15/2014 [facility] [id number] 07/15/2014 07/15/2014 [facility] [id number] 07/15/2014 07/15/2014 [facility] [place] [id number] 07/15/2014 07/15/2014 [facility] [place] [id number] 07/15/2014 07/15/2014 [facility] [id number] 07/15/2014 07/15/2014 [facility] [id number] 07/15/2014 07/15/2014 [facility] [id number] 07/15/2014 07/15/2014 [facility] [id number] 07/15/2014 07/15/2014 [facility] [id number] 07/15/2014 07/15/2014 [facility] [id number] 07/15/2014 07/15/2014 [facility] [id number] 07/15/2014 07/15/2014 [facility] [id number] 07/15/2014 07/15/2014 [facility] [id number] 07/15/2014 07/15/2014 [facility] [id number] 07/15/2014 07/15/2014 [facility] [place] [id number] 07/15/2014 07/15/2014 [facility] [id number] 07/15/2014 07/15/2014 [facility] [id number] 07/15/2014 07/15/2014 [facility] [place] [id number] 07/15/2014 07/15/2014 [facility] [place] [id number] 07/15/2014 07/15/2014 [facility] [place] [id number] 07/15/2014 07/15/2014 [facility] [place] [place] [id number] 07/15/2014 07/15/2014 [facility]/C [id number] 07/15/2014 07/15/2014 [facility] [id number] 07/15/2014 07/15/2014 [facility] [place] [id number] 07/15/2014 07/15/2014 [facility] ECHO/MCF [id number] 07/21/2014 07/21/2014 [facility] ECHO/MCF [id number] 07/21/2014 07/21/2014 [facility] ECHO/MCF [id number] 07/21/2014 07/21/2014 [facility] ECHO/MCF [id number] 07/21/2014 07/21/2014 [facility] ECHO/MCF [id number] 07/21/2014 07/21/2014 [facility] ECHO/MCF [id number] 07/21/2014 07/21/2014 [facility] ECHO/MCF [id number] 07/21/2014 07/21/2014 [facility] ECHO/MCF [id number] 07/21/2014 07/21/2014 [facility] ECHO/MCF [id number] 07/21/2014 07/21/2014 [facility] ECHO/MCF [id number] 07/21/2014 07/21/2014 [facility] ECHO/MCF [id number] 07/21/2014 07/21/2014 [facility] ECHO/MCF [id number] 07/21/2014 07/21/2014 [facility] ECHO/MCF [id number] 07/21/2014 07/21/2014 [facility] Other [id number] 07/30/2014 07/30/2014 [facility] Other [id number] 07/30/2014 07/30/2014 [facility] Other [id number] 07/30/2014 07/30/2014 [facility] Other [id number] 07/30/2014 07/30/2014 [facility] Other [id number] 07/30/2014 07/30/2014 [facility] Other [id number] 07/30/2014 07/30/2014 [facility] Other [id number] 07/30/2014 07/30/2014 [facility] Other [id number] 07/30/2014 07/30/2014 [facility] Other [id number] 07/30/2014 07/30/2014 [facility] Other [id number] 07/30/2014 07/30/2014 [facility] Other [id number] 07/30/2014 07/30/2014 [facility] Other [id number] 07/30/2014 07/30/2014 [facility] ECHO RESULTS [id number] 08/04/2014 08/04/2014 [facility] ECHO RESULTS [id number] 08/04/2014 08/04/2014 [facility] ECHO RESULTS [id number] 08/04/2014 08/04/2014 [facility] ECHO RESULTS [id number] 08/04/2014 08/04/2014 [facility] ECHO RESULTS [id number] 08/04/2014 08/04/2014 [facility] ECHO RESULTS [id number] 08/04/2014 08/04/2014 [facility] ECHO RESULTS [id number] 08/04/2014 08/04/2014 [facility] ECHO RESULTS [id number] 08/04/2014 08/04/2014 [facility] ECHO RESULTS [id number] 08/04/2014 08/04/2014 [facility] ECHO RESULTS [id number] 08/04/2014 08/04/2014 [facility] ECHO RESULTS [id number] 08/04/2014 08/04/2014 [facility] Outpatient [id number] Papi Dior 10/06/2014 10/07/2014 [facility]patient [id number] Papi Dior 10/13/2014 10/13/2014 [facility] 3 MONTH FOLLOW UP [id number] 11/04/2014 11/04/2014 [facility] 3 MONTH FOLLOW UP [id number] 11/04/2014 11/04/2014 [facility] 3 MONTH FOLLOW UP [id number] 11/04/2014 11/04/2014 [facility] 3 MONTH FOLLOW UP [id number] 11/04/2014 11/04/2014 [facility] 3 MONTH FOLLOW UP [id number] 11/04/2014 11/04/2014 [facility] 3 MONTH FOLLOW UP [id number] 11/04/2014 11/04/2014 [facility] 3 MONTH FOLLOW UP [id number] 11/04/2014 11/04/2014 [facility] 3 MONTH FOLLOW UP [id number] 11/04/2014 11/04/2014 [facility] 3 MONTH FOLLOW UP [id number] 11/04/2014 11/04/2014 [facility] 3 MONTH FOLLOW UP [id number] 11/04/2014 11/04/2014 [facility] Outpatient [id number] Papi Dior 11/25/2014 11/26/2014 [facility] Unknown [id number] 11/28/2014 11/28/2014 [facility] Unknown [id number] 11/28/2014 11/28/2014 [facility] Unknown [id number] 11/28/2014 11/28/2014 [facility] Unknown [id number] 11/28/2014 11/28/2014 [facility] Unknown [id number] 11/28/2014 11/28/2014 [facility] Unknown [id number] 11/28/2014 11/28/2014 [facility] Unknown [id number] 11/28/2014 11/28/2014 [facility] Unknown [id number] 11/28/2014 11/28/2014 [facility] Unknown [id number] 11/28/2014 11/28/2014 [facility] Unknown [id number] 11/28/2014 11/28/2014 [facility] [id number] 12/03/2014 12/03/2014 [facility] copd [id number] 12/03/2014 12/03/2014 [facility] copd [id number] 12/03/2014 12/03/2014 [facility] copd [id number] 12/03/2014 12/03/2014 [facility] copd [id number] 12/03/2014 12/03/2014 [facility] copd [id number] 12/03/2014 12/03/2014 [facility] copd [id number] 12/03/2014 12/03/2014 [facility] copd [id number] 12/03/2014 12/03/2014 [facility] copd [id number] 12/03/2014 12/03/2014 [facility] ABRASION ON ARM THAT DOESN'T SEEM TO BE HEALING [id number] 02/11/2015 02/11/2015 [facility] ABRASION ON ARM THAT DOESN'T SEEM TO BE HEALING [id number] 02/11/2015 02/11/2015 [facility] ABRASION ON ARM THAT DOESN'T SEEM TO BE HEALING [id number] 02/11/2015 02/11/2015 [facility] ABRASION ON ARM THAT DOESN'T SEEM TO BE HEALING [id number] 02/11/2015 02/11/2015 [facility] ABRASION ON ARM THAT DOESN'T SEEM TO BE HEALING [id number] 02/11/2015 02/11/2015 [facility] ABRASION ON ARM THAT DOESN'T SEEM TO BE HEALING [id number] 02/11/2015 02/11/2015 [facility] ABRASION ON ARM THAT DOESN'T SEEM TO BE HEALING [id number] 02/11/2015 02/11/2015 [facility] ABRASION ON ARM THAT DOESN'T SEEM TO BE HEALING [id number] 02/11/2015 02/11/2015 [facility] immune disease [id number] 08/12/2015 08/12/2015 [facility] immune disease [id number] 08/12/2015 08/12/2015 [facility] immune disease [id number] 08/12/2015 08/12/2015 [facility] immune disease [id number] 08/12/2015 08/12/2015 [facility] immune disease [id number] 08/12/2015 08/12/2015 [facility] immune disease [id number] 08/12/2015 08/12/2015 [facility] immune disease [id number] 08/12/2015 08/12/2015 [facility] immune disease [id number] 08/12/2015 08/12/2015 [facility] Needs referral [id number] 08/20/2015 08/20/2015 [facility] Needs referral [id number] 08/20/2015 08/20/2015 [facility] Needs referral [id number] 08/20/2015 08/20/2015 [facility] Needs referral [id number] 08/20/2015 08/20/2015 [facility] Needs referral [id number] 08/20/2015 08/20/2015 [facility] Needs referral [id number] 08/20/2015 08/20/2015 [facility] Needs referral [id number] 08/20/2015 08/20/2015 [facility] Problems with leg [id number] 03/23/2016 03/23/2016 [facility] Problems with leg [id number] 03/23/2016 03/23/2016 [facility] Problems with leg [id number] 03/23/2016 03/23/2016 [facility] Problems with leg [id number] 03/23/2016 03/23/2016 [facility] Problems with leg [id number] 03/23/2016 03/23/2016 [facility] Problems with leg [id number] 03/23/2016 03/23/2016 [facility] Outpatient [id number] Alyson GouldZohraCruz 03/23/2016 03/24/2016 [facility] follow up on venous doppler [id number] 03/24/2016 03/24/2016 [facility] follow up on venous doppler [id number] 03/24/2016 03/24/2016 [facility] follow up on venous doppler [id number] 03/24/2016 03/24/2016 [facility] follow up on venous doppler [id number] 03/24/2016 03/24/2016 [facility] follow up on venous doppler [id number] 03/24/2016 03/24/2016 [facility] Inpatient [id number] Chris Garcia 04/15/2016 04/17/2016 [facility] [id number] 04/24/2016 04/24/2016 [facility] [id number] 04/24/2016 04/24/2016 [facility] F/U [id number] 04/24/2016 04/24/2016 [facility] F/U [id number] 04/24/2016 04/24/2016 [facility] PHYSICAL/FBW [id number] 08/01/2016 08/01/2016 [facility] PHYSICAL/FBW [id number] 08/01/2016 08/01/2016 [facility] PHYSICAL/FBW [id number] 08/01/2016 08/01/2016 [facility] Aorta-LUIS FERNANDO [id number] 09/13/2016 09/13/2016 [facility] Aorta-GOULD [id number] 09/13/2016 09/13/2016 [facility] Outpatient [id number] Alyson GutierrezCruz 09/13/2016 09/14/2016 [facility] Carotid Extracranial US/[facility] [id number] 09/15/2016 09/15/2016 [facility] Inpatient [id number] Amir Radha 04/27/2017 04/30/2017 [facility] Inpatient [id number] Ani Myers 07/04/2017 07/06/2017 [facility] Outpatient [id number] Gumaro Harp 08/15/2017 08/16/2017 [facility] Outpatient [id number] Alyson Blair 12/13/2017 12/14/2017 [facility] Outpatient [id number] Manuela Greene 12/25/2017 12/26/2017 [facility] Outpatient [id number] ROUTINE ALYSON GUTIERREZVITO Active [facility] Procedures Procedure Code Date Perfomer Comments Source Cataract extraction [id number] [place] [facility] [id number] [facility] Operation [id number] [facility] Cataract extraction [id number] [facility] Hysterectomy [id number] [facility] Operation [id number] [facility]
--- OUTSIDE RECORDS SUMMARY | 2018-06-18 05:50 | XMS REPORT ---
Author Author Alyson Manuel [facility] eClinicalWorks Address Unknown Phone Unavailable Care Team Providers Care Receiving Inspector Name Role Phone Alyson Manuel CP Unavailable Allergies, Adverse Reactions, Alerts Substance Reaction Event Type Codeine Sulfate vomiting Drug Allergy Problems Problem Type Condition Code Onset Dates Condition Status Problem Carotid artery disease I77.9 Active Assessment Shortness of breath R06.02 Active Problem History of abdominal aortic aneurysm Z86.79 Active Assessment Tachycardia R00.0 Active Problem History of aortic valve repair Z98.890 Active Problem Depression, unspecified depression type F32.9 Active Problem Prediabetes R73.03 Active Problem Hypertriglyceridemia E78.1 Active Problem Bilateral carotid artery disease I77.9 Active Assessment Bronchitis J40 Active Assessment Chronic obstructive pulmonary disease, unspecified COPD type J44.9 Active Problem H/O aortic valve replacement Z95.2 Active Assessment Orthostatic hypotension I95.1 Active Problem Gastroesophageal reflux disease, esophagitis presence not specified K21.9 Active Problem Chronic obstructive pulmonary disease, unspecified COPD type J44.9 Active Problem Dependent edema R60.9 Active Problem Dry eyes H04.123 Active Problem Esophageal reflux K21.9 Active Problem Vitamin D deficiency E55.9 Active Problem Rheumatoid arthritis M06.9 Active Problem Other and unspecified hyperlipidemia E78.5 Active Problem Systolic murmur I38 Active Problem Osteopenia M85.80 Active Problem 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 Problem Aortic aneurysm I71.9 Active Medications Medication Code System Code Instructions Start Date End Date Status Dosage Fish Oil ND 23012308339 1000 mg Orally Once a day Active 1 capsule Spiriva HandiHaler ND 82785098719 18 MCG Inhalation Once a day Jul 27, 2017 Active 1 capsule Lasix ND 94976641722 40 MG Orally Once a day Active 1 tablet Caltrate 600+D Plus ND 38660265879 600-800 MG-UNIT Orally Twice a day Active 1 tablet Levaquin ND 20738332859 500 mg Orally Once a day Apr 24, 2017 May 01, 2017 Active 1 tablet Vitamin D [facility] 03848649409 2000 UNIT Orally Once a day Active 1 tablet Aspirin EC [facility] 94787370797 81 MG Orally Once a day Active 1 tablet CoQ-10 [facility] 92677878557 200 MG Orally Once a day Active 1 capsule with a meal Prilosec [facility] 85217671697 40 MG Orally Once a day Active 1 capsule Lipitor [facility] 21191672345 20 MG Orally Once a day Active 1 tablet potassium NDC 0 Oral Active 1 tab Magnesium [facility] 44290135460 500 MG Orally Once a day Active 1 tablet with a meal Colace [facility] 17325881435 50 MG Orally Once a day Active 1 capsule as needed Multivitamins [facility] 14325-09902 100 mg Orally daily Active as directed ZyrTEC ND 0 10 mg Orally Once a day Active 1 tablet Levalbuterol HCl [facility] [address]-80 daily Active 0.5 ml Ipratropium-Albuterol [facility] [address]-75 Active not defined Align [facility] 88942973922 Orally Active not defined Vitamin B Complex [facility] 86756159230 Orally Active not defined Metoprolol Tartrate [facility] 55769944880 25 MG Orally Twice a day Active 1 tablet Lexapro [facility] 97307518047 10 MG Orally Once a day Active 1 tablet Symbicort [facility] [address]-72 Active not defined Restasis [facility] 15961721251 0.05 % Ophthalmic Twice a day Active 1 into affected eye Vital Signs Date/Time: Apr 24, 2017 BMI 29.40 Index Weight 166 lbs Height 63 in Cardiac Monitoring Heart Rate 110 /min Blood Pressure Diastolic 58 mm Hg Blood Pressure Systolic 96 mm Hg Results Name Result Date Reference Range Unit Abnormality Flag Chest 2 views- Xray CBC ----MCHC 32.8 20170424 ----MCH 33.7H 20170424 ----Platelets 216 20170424 ----RDW 13.7 20170424 ----NEUTROPHILS MID-0.7,GRA-8.3 20170424 ----Hematocrit 41.1 20170424 ----MCV 102.4H 20170424 ----RBC 4.01 20170424 ----Hemoglobin 13.5 20170424 ----WBC 10.5h 20170424 Summary Purpose eClinicalWorks Submission
--- OUTSIDE RECORDS SUMMARY | 2018-06-18 05:50 | XMS REPORT ---
Author Author Alyson Manuel Organization eClinicalWorks Address Unknown Phone Unavailable Care Team Providers Care Mine Engineer Name Role Phone Alyson Manuel CP Unavailable Allergies No Known Allergies Problems Problem Type Condition Code Onset Dates Condition Status Problem Osteopenia M85.80 Active Problem Depression, unspecified depression type F32.9 Active Problem Prediabetes R73.03 Active Problem Chronic obstructive pulmonary disease, unspecified COPD type J44.9 Active Problem Gastroesophageal reflux disease, esophagitis presence not specified K21.9 Active Problem Bilateral carotid artery disease I77.9 Active Problem History of abdominal aortic aneurysm Z86.79 Active Problem History of aortic valve repair Z98.890 Active Problem Dry eyes H04.123 Active Problem Dependent edema R60.9 Active Problem Rheumatoid arthritis M06.9 Active Problem Esophageal reflux K21.9 Active Problem 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
--- OUTSIDE RECORDS SUMMARY | 2018-06-18 05:50 | XMS REPORT ---
Author Author Alyson Manuel [facility] eClinicalWorks Address Unknown Phone Unavailable Care Team Providers Care Newspaper Reporter Name Role Phone Alyson Manuel CP Unavailable Allergies No Known Allergies Problems Problem Type Condition Code Onset Dates Condition Status Problem Prediabetes R73.03 Active Problem History of aortic valve repair Z98.890 Active Problem Depression, unspecified depression type F32.9 Active Problem Bilateral carotid artery disease I77.9 Active Problem Chronic obstructive pulmonary disease, unspecified COPD type J44.9 Active Problem Hypertriglyceridemia E78.1 Active Problem Dependent edema R60.9 Active Problem History of abdominal aortic aneurysm Z86.79 Active Problem Gastroesophageal reflux disease, esophagitis presence not specified K21.9 Active Problem Dry eyes H04.123 Active Problem Esophageal reflux K21.9 Active Problem Other and unspecified hyperlipidemia E78.5 Active Problem Rheumatoid arthritis M06.9 Active Problem Aortic aneurysm I71.9 Active Problem Systolic murmur I38 Active Problem Vitamin D deficiency E55.9 Active Problem Carotid artery disease I77.9 Active Problem 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
--- OUTSIDE RECORDS SUMMARY | 2018-06-18 05:50 | XMS REPORT ---
Author Author Alyson Manuel [facility] eClinicalWorks Address Unknown Phone Unavailable Care Team Providers Care Manager Human Resources Name Role Phone Alyson Manuel CP Unavailable Allergies, Adverse Reactions, Alerts Substance Reaction Event Type Codeine Sulfate vomiting Drug Allergy Problems Problem Type Condition Code Onset Dates Condition Status Problem Prediabetes R73.03 Active Problem History of aortic valve repair Z98.890 Active Problem Depression, unspecified depression type F32.9 Active Problem Bilateral carotid artery disease I77.9 Active Assessment Osteopenia, unspecified location M85.80 Active Problem Chronic obstructive pulmonary disease, unspecified COPD type J44.9 Active Assessment Hypertriglyceridemia E78.1 Active Assessment Prediabetes R73.03 Active Problem Hypertriglyceridemia E78.1 Active Problem Dependent edema R60.9 Active Problem History of abdominal aortic aneurysm Z86.79 Active Problem Gastroesophageal reflux disease, esophagitis presence not specified K21.9 Active Problem Dry eyes H04.123 Active Problem Esophageal reflux K21.9 Active Problem Other and unspecified hyperlipidemia E78.5 Active Assessment Painful urination R30.9 Active Problem Rheumatoid arthritis M06.9 Active Problem Aortic aneurysm I71.9 Active Problem Systolic murmur I38 Active Problem Vitamin D deficiency E55.9 Active Problem Carotid artery disease I77.9 Active Problem 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 Problem Osteopenia M85.80 Active Medications Medication Code System Code Instructions Start Date End Date Status Dosage Caltrate 600+D Plus [facility] [address]-14 600-800 MG-UNIT Orally Twice a day Active 1 tablet Align [facility] [address] Orally Active not defined ZyrTEC NDC 0 10 mg Orally Once a day Active 1 tablet Colace [facility] [address]-81 50 MG Orally Once a day Active 1 capsule as needed Vitamin B Complex [facility] [address] Orally Active not defined potassium NDC 0 Oral Active 1 tab Advair Diskus [facility] [address]-68 250-50 MCG/DOSE Inhalation Twice a day Active 1 puff Aspirin EC [facility] [address]-86 81 MG Orally Once a day Active 1 tablet Multivitamins [facility] [address]053 100 mg Orally daily Active as directed Lasix [facility] [address]-10 40 MG Orally Once a day Active 1 tablet Vitamin D [facility] [address]-51 2000 UNIT Orally Once a day Active 1 tablet Prilosec [facility] [address]-91 40 MG Orally Once a day Active 1 capsule Metoprolol Tartrate [facility] [address]-07 25 MG Orally Twice a day Active 1 tablet Ipratropium-Albuterol [facility] [address]-90 Active not defined Fish Oil [facility] [address]-35 1000 mg Orally Once a day Active 1 capsule Restasis [facility] [address]-45 0.05 % Ophthalmic Twice a day Active 1 into affected eye Magnesium [facility] [address]184 500 MG Orally Once a day Active 1 tablet with a meal Lexapro [facility] [address]-27 10 MG Orally Once a day Active 1 tablet Levalbuterol HCl [facility] [address]-67 daily Active 0.5 ml Lipitor [facility] [address]-08 20 MG Orally Once a day Active 1 tablet CoQ-10 [facility] [address]49 200 MG Orally Once a day Active 1 capsule with a meal Spiriva HandiHaler [facility] [address]-57 18 MCG Inhalation Once a day Jul 27, 2017 Active 1 capsule Vital Signs Date/Time: October 16, 2016 BMI 29.23 Index Weight 165 lbs Height 63 in Cardiac Monitoring Heart Rate 80 /min Blood Pressure Diastolic 59 mm Hg Blood Pressure Systolic 112 mm Hg Results No Known Results Summary Purpose eClinicalWorks Submission
--- OUTSIDE RECORDS SUMMARY | 2018-06-18 05:50 | XMS REPORT ---
Author Author Manuel Farah Organization eClinicalWorks Address Unknown Phone Unavailable Care Team Providers Care Train Conductor Name Role Phone Manuel Farah CP Unavailable Allergies, Adverse Reactions, Alerts Substance Reaction Event Type Codeine Sulfate vomiting Drug Allergy Problems Problem Type Condition Code Onset Dates Condition Status Assessment Elevated brain natriuretic peptide (BNP) level R79.89 Active Assessment Abnormality of heart beat R00.9 Active Problem Carotid artery disease I77.9 Active Assessment Tachycardia R00.0 Active Problem History of abdominal aortic aneurysm Z86.79 Active Assessment Orthostatic hypotension I95.1 Active Problem History of aortic valve repair Z98.890 Active Problem Depression, unspecified depression type F32.9 Active Problem Prediabetes R73.03 Active Problem Hypertriglyceridemia E78.1 Active Problem Bilateral carotid artery disease I77.9 Active Assessment Shortness of breath R06.02 Active Assessment Bronchitis J40 Active Problem H/O aortic valve replacement Z95.2 Active Assessment Chronic obstructive pulmonary disease, unspecified [...] Instructions Start Date End Date Status Dosage Aspirin EC [facility] 07873185612 81 MG Orally Once a day Active 1 tablet Restasis [facility] 58189411696 0.05 % Ophthalmic Twice a day Active 1 into affected eye Magnesium ND 17069949721 500 MG Orally Once a day Active 1 tablet with a meal Vitamin B Complex ND 59723529017 Orally Active not defined Lipitor ND 61681687238 20 MG Orally Once a day Active 1 tablet potassium ND 0 Oral Active 1 tab Ipratropium-Albuterol [facility] [address]-67 Active not defined Caltrate 600+D Plus [facility] 83392004289 600-800 MG-UNIT Orally Twice a day Active 1 tablet Multivitamins [facility] 163[address]-39362 100 mg Orally daily Active as directed Lasix [facility] 48294055956 40 MG Orally Once a day Active 1 tablet CoQ-10 [facility] 92577705672 200 MG Orally Once a day Active 1 capsule with a meal Metoprolol Tartrate [facility] 06092295886 25 MG Orally Twice a day Active 1 tablet Prilosec [facility] 71929491205 40 MG Orally Once a day Active 1 capsule Spiriva HandiHaler [facility] 38679376924 18 MCG Inhalation Once a day Jul 27, 2017 Active 1 capsule Levalbuterol HCl [facility] [address]-58 daily Active 0.5 ml ZyrTEC [facility] 0 10 mg Orally Once a day Active 1 tablet Align [facility] 80415302879 Orally Active not defined Fish Oil [facility] 51887451462 1000 mg Orally Once a day Active 1 capsule Symbicort [facility] [address]-53 Active not defined Vitamin D [facility] 71640040393 2000 UNIT Orally Once a day Active 1 tablet Levaquin [facility] 75583850008 500 mg Orally Once a day Active 1 tablet Colace [facility] 13044356756 50 MG Orally Once a day Active 1 capsule as needed Lexapro [facility] 60764827679 10 MG Orally Once a day Active 1 tablet Vital Signs Date/Time: Apr 27, 2017 BMI 29.93 Index Weight 169 lbs Height 63 in Cardiac Monitoring Heart Rate 111 /min Blood Pressure Diastolic 58 mm Hg Blood Pressure Systolic 100 mm Hg Results No Known Results Summary Purpose eClinicalWorks Submission
--- OUTSIDE RECORDS SUMMARY | 2018-06-18 05:50 | XMS REPORT ---
Author Author Alyson Manuel [facility] eClinicalWorks Address Unknown Phone Unavailable Care Team Providers Care Inside Finisher Name Role Phone Alyson Manuel CP Unavailable Allergies, Adverse Reactions, Alerts Substance Reaction Event Type Codeine Sulfate vomiting Drug Allergy Problems Problem Type Condition Code Onset Dates Condition Status Assessment Other pulmonary embolism without acute cor pulmonale, unspecified chronicity I26.99 Active Assessment Carotid artery disease I77.9 Active Problem History of aortic valve repair Z98.890 Active Assessment Coronary artery disease involving [place] coronary artery of [place] heart without angina pectoris I25.10 Active Problem Prediabetes R73.03 Active Assessment H/O aortic valve replacement Z95.2 Active Problem History of abdominal aortic aneurysm Z86.79 Active Problem Dry eyes H04.123 Active Problem Depression, unspecified depression type F32.9 Active Problem H/O aortic valve replacement Z95.2 Active Problem Hypertriglyceridemia E78.1 Active Problem Rheumatoid arthritis M06.9 Active Assessment Chronic obstructive pulmonary disease, unspecified COPD type J44.9 Active Problem Coronary artery disease involving [place] coronary artery of [place] heart without angina pectoris I25.10 Active Assessment Hypertriglyceridemia E78.1 Active Problem Gastroesophageal reflux disease, esophagitis presence not specified K21.9 Active Problem Chronic obstructive pulmonary disease, unspecified COPD type J44.9 Active Problem Bilateral carotid artery disease I77.9 Active Problem Dependent edema R60.9 Active Problem Vitamin D deficiency E55.9 Active Problem 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 Problem Other and unspecified hyperlipidemia E78.5 Active Problem Esophageal reflux K21.9 Active Problem Osteopenia M85.80 Active Problem Carotid artery disease I77.9 Active Problem Aortic aneurysm I71.9 Active Problem Systolic murmur I38 Active Medications Medication Code System Code Instructions Start Date End Date Status Dosage Caltrate 600+D Plus NDC 75534840124 600-800 MG-UNIT Orally Twice a day Active 1 tablet Multivitamins NDC 29296-42577 100 mg Orally daily Active as directed ZyrTEC NDC 0 10 mg Orally prn Active 1 tablet Colace [facility] 15712313472 50 MG Orally Once a day Active 1 capsule as needed CoQ-10 [facility] 77229262217 200 MG Orally Once a day Active 1 capsule with a meal Xarelto [facility] [address]-28 20 mg by mouth Once a day May 08, 2017 Active 1 tablet Prilosec [facility] 18144776092 40 MG Orally Once a day Active 1 capsule Aspirin EC [facility] 74497108083 81 MG Orally Once a day Active 1 tablet Align [facility] 22837242754 Orally Active not defined Symbicort [facility] [address]-80 prn Active not defined Lipitor [facility] 25215340128 20 MG Orally Once a day Active 1 tablet Levalbuterol HCl [facility] [address]-68 prn Active 0.5 ml Ipratropium-Albuterol [facility] [address]-93 Active not defined Lasix [facility] 18253078121 40 MG Orally Once a day Active 1 tablet potassium ND 0 Oral Active 1 tab Restasis [facility] 53978944539 0.05 % Ophthalmic Twice a day Active 1 into affected eye Magnesium [facility] 42508151839 500 MG Orally Once a day Active 1 tablet with a meal Lexapro [facility] 37244073943 10 MG Orally Once a day Active 1 tablet Metoprolol Tartrate [facility] 12120207700 25 MG Orally Twice a day Active 1 tablet Vitamin D [facility] 66574660383 2000 UNIT Orally Once a day Active 1 tablet Vitamin B Complex [facility] 81586938637 Orally Active not defined Fish Oil [facility] 31090941785 1000 mg Orally Once a day Active 1 capsule Vital Signs Date/Time: Aug 30, 2017 BMI 29.05 Index Weight 164 lbs Height 63 in Cardiac Monitoring Heart Rate 92 /min Blood Pressure Diastolic 70 mm Hg Blood Pressure Systolic 120 mm Hg Results No Known Results Summary Purpose eClinicalWorks Submission
--- OUTSIDE RECORDS SUMMARY | 2018-06-18 05:50 | XMS REPORT ---
Author Author Chris Garcia [facility] eClinicalWorks Address Unknown Phone Unavailable Care Team Providers Care Junk Dealer Name Role Phone Chris Garcia CP Unavailable Allergies, Adverse Reactions, Alerts Substance Reaction Event Type Codeine Sulfate vomiting Drug Allergy Problems Problem Type Condition Code Onset Dates Condition Status Assessment Dry eyes H04.123 Active Assessment Prediabetes R73.03 Active Assessment Chronic seasonal allergic rhinitis, unspecified trigger J30.2 Active Assessment Coronary artery disease involving [place] coronary artery of [place] heart without angina pectoris I25.10 Active Assessment Carotid artery disease I77.9 Active Assessment Other acute pulmonary embolism without acute cor pulmonale I26.99 Active Assessment Depression, unspecified depression type F32.9 Active Problem History of aortic valve repair Z98.890 Active Assessment Chronic obstructive pulmonary disease, unspecified COPD type J44.9 Active Problem Prediabetes R73.03 Active Assessment Dependent edema R60.9 Active Problem History of abdominal aortic aneurysm Z86.79 Active Problem Dry eyes H04.123 Active Problem Depression, unspecified depression type F32.9 Active Problem H/O aortic valve replacement Z95.2 Active Problem Hypertriglyceridemia E78.1 Active Problem Rheumatoid arthritis M06.9 Active Assessment Other and unspecified hyperlipidemia E78.5 Active Problem Coronary artery disease involving [place] coronary artery of [place] heart without angina pectoris I25.10 Active Assessment Esophageal reflux K21.9 Active Problem Gastroesophageal reflux disease, esophagitis presence [...] Instructions Start Date End Date Status Dosage CoQ-10 NDC 39080890557 200 MG Orally Once a day Active 1 capsule with a meal Fish Oil [facility] 94318223149 1000 mg Orally Once a day Active [address] [facility] 67586379717 10 MG Orally Once a day Active [address] [facility] 32615763998 40 MG Orally Once a day Active [address] [facility] [address]-79 Active not defined Metoprolol Tartrate [facility] 09551121029 25 MG Orally Twice a day Active 1 tablet Vitamin B Complex [facility] 60918908793 Orally Active not defined Caltrate 600+D Plus [facility] 18004661541 600-800 MG-UNIT Orally Twice a day Active [address] [facility] 61421994979 10 MG Orally Once a day Active [address] [facility] 84334716777 40 MG Orally Once a day Active [address] [facility] 13286509851 50 MG Orally Once a day Active 1 capsule as needed Xarelto [facility] [address]-93 20 mg by mouth Once a day May 08, 2017 Active [address] [facility] 90005350509 0.05 % Ophthalmic Twice a day Active 1 into affected eye Vitamin D [facility] 53111034765 2000 UNIT Orally Once a day Active 1 tablet Aspirin EC [facility] 97531169034 81 MG Orally Once a day Active [address] [facility] 57384-82569 100 mg Orally daily Active as directed potassium NDC 0 Oral Active [address] [facility] 45748661629 500 mg Orally Once a day Active 1 tablet ZyrTEC ND 0 10 mg Orally Once a day Active [address] [facility] 18512946732 500 MG Orally Once a day Active 1 tablet with a meal Levalbuterol HCl [facility] [address]-78 daily Active 0.[address] [facility] 90254088541 20 MG Orally Once a day Active 1 tablet Ipratropium-Albuterol [facility] [address]-39 Active not defined Align [facility] 08649067727 Orally Active not defined Vital Signs Date/Time: Aug 07, 2017 BMI 29.05 Index Weight 164 lbs Height 63 in Cardiac Monitoring Heart Rate 102 /min Blood Pressure Diastolic 76 mm Hg Blood Pressure Systolic 118 mm Hg Results No Known Results Summary Purpose eClinicalWorks Submission
--- OUTSIDE RECORDS SUMMARY | 2018-06-18 05:50 | XMS REPORT ---
Author Author Alyson Manuel [facility] eClinicalWorks Address Unknown Phone Unavailable Care Team Providers Care Criminal Justice Faculty Name Role Phone Alyson Manuel CP Unavailable Allergies, Adverse Reactions, Alerts Substance Reaction Event Type Codeine Sulfate vomiting Drug Allergy Problems Problem Type Condition Code Onset Dates Condition Status Assessment H/O aortic valve replacement Z95.2 Active Assessment Dependent edema R60.9 Active Assessment Gastroesophageal reflux disease, esophagitis presence not specified K21.9 Active Assessment Dry eyes H04.123 Active Assessment Cough R05 Active Assessment Chronic seasonal allergic rhinitis, unspecified trigger J30.2 Active Problem Osteopenia M85.80 Active Assessment Other and unspecified hyperlipidemia E78.5 Active Problem Prediabetes R73.03 Active Assessment 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 Problem Depression, unspecified depression type F32.9 Active Problem History of abdominal aortic aneurysm Z86.79 Active Problem History of aortic valve repair Z98.890 Active Problem Hypertriglyceridemia E78.1 Active Problem Bilateral carotid artery disease I77.9 Active Assessment Depression, unspecified depression type F32.9 Active Assessment Chronic obstructive pulmonary disease, unspecified COPD type J44.9 Active Problem H/O aortic valve replacement Z95.2 Active Assessment Carotid artery disease I77.9 Active Problem Dry eyes H04.123 Active Problem Dependent edema R60.9 Active Problem Chronic obstructive pulmonary disease, unspecified COPD type J44.9 Active Problem Gastroesophageal reflux disease, esophagitis presence not specified K21.9 Active Problem Other and unspecified hyperlipidemia E78.5 Active Problem Vitamin D deficiency E55.9 Active Problem Rheumatoid arthritis M06.9 Active Problem Esophageal reflux K21.9 Active Problem Systolic murmur I38 Active Problem Carotid artery disease I77.9 Active Problem 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 Problem Aortic aneurysm I71.9 Active Medications Medication Code System Code Instructions Start Date End Date Status Dosage Metoprolol Tartrate [facility] [address]-56 25 MG Orally Twice a day Active 1 tablet Restasis [facility] [address]-07 0.05 % Ophthalmic Twice a day Active 1 into affected eye ZyrTEC NDC 0 10 mg Orally Once a day Active 1 tablet Magnesium [facility] 55310-81492 500 MG Orally Once a day Active 1 tablet with a meal Colace [facility] [address]-91 50 MG Orally Once a day Active 1 capsule as needed Advair Diskus [facility] [address]-69 250-50 MCG/DOSE Inhalation Twice a day Inactive 1 puff Lexapro [facility] [address]-24 10 MG Orally Once a day Active 1 tablet Caltrate 600+D Plus [facility] [address]-68 600-800 MG-UNIT Orally Twice a day Active 1 tablet Align [facility] 54393-48531 Orally Active not defined potassium ND 0 Oral Active 1 tab Lipitor [facility] [address]-99 20 MG Orally Once a day Active 1 tablet Prilosec [facility] [address]-50 40 MG Orally Once a day Active 1 capsule Levalbuterol HCl [facility] [address]-78 daily Active 0.5 ml Ipratropium-Albuterol [facility] [address]-84 Active not defined Spiriva HandiHaler [facility] [address]-62 18 MCG Inhalation Once a day Jul 27, 2017 Active 1 capsule Aspirin EC [facility] [address]-86 81 MG Orally Once a day Active 1 tablet Multivitamins [facility] 85421-95533 100 mg Orally daily Active as directed CoQ-10 [facility] 40393-11615 200 MG Orally Once a day Active 1 capsule with a meal Lasix [facility] [address]-14 40 MG Orally Once a day Active 1 tablet Vitamin B Complex [facility] 40917-12394 Orally Active not defined Levaquin [facility] [address]-40 500 MG Orally Once a day Feb 15, 2017 Feb 25, 2017 Active 1 tablet Vitamin D [facility] [address]-94 2000 UNIT Orally Once a day Active 1 tablet Fish Oil [facility] [address]-13 1000 mg Orally Once a day Active 1 capsule Vital Signs Date/Time: Feb 15, 2017 BMI 28.87 Index Weight 163 lbs Height 63 in Cardiac Monitoring Heart Rate 64 /min Blood Pressure Diastolic 64 mm Hg Blood Pressure Systolic 100 mm Hg Results No Known Results Summary Purpose eClinicalWorks Submission
--- OUTSIDE RECORDS SUMMARY | 2018-06-18 05:50 | XMS REPORT ---
Author Author Chris Garcia [facility] eClinicalWorks Address Unknown Phone Unavailable Care Team Providers Care Loan And Credit Manager Name Role Phone Chris Garcia CP Unavailable Allergies, Adverse Reactions, Alerts Substance Reaction Event Type Codeine Sulfate vomiting Drug Allergy Problems Problem Type Condition Code Onset Dates Condition Status Problem History of aortic valve repair Z98.890 Active Problem Depression, unspecified depression type F32.9 Active Problem Prediabetes R73.03 Active Problem Hypertriglyceridemia E78.1 Active Assessment Hospital discharge follow-up Z09 Active Problem Bilateral carotid artery disease I77.9 Active Assessment Other acute pulmonary embolism without acute cor pulmonale I26.99 Active Assessment Shortness of breath R06.02 Active Problem H/O aortic valve replacement Z95.2 Active Problem Gastroesophageal reflux disease, esophagitis presence [...] 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 Problem Carotid artery disease I77.9 Active Assessment Chronic obstructive pulmonary disease, unspecified COPD type J44.9 Active Problem Aortic aneurysm I71.9 Active Problem History of abdominal aortic aneurysm Z86.79 Active Medications Medication Code System Code Instructions Start Date End Date Status Dosage Colace NDC 70263309450 50 MG Orally Once a day Active 1 capsule as needed Lipitor NDC 49843160507 20 MG Orally Once a day Active 1 tablet Align NDC 94686010615 Orally Active not defined ZyrTEC NDC 0 10 mg Orally Once a day Active 1 tablet Levaquin NDC 49233199825 500 mg Orally Once a day Active 1 tablet Xarelto ND 30228787703 10 MG Orally Once a day Active 1 tablet Caltrate 600+D Plus [facility] 91785507911 600-800 MG-UNIT Orally Twice a day Active 1 tablet Vitamin D [facility] 84085363589 2000 UNIT Orally Once a day Active [address] [facility] 70160864651 0.05 % Ophthalmic Twice a day Active 1 into affected eye Lasix [facility] 45387595007 40 MG Orally Once a day Active [address] [facility] [address]-79 Active not defined Xarelto [facility] [address]-05 20 mg by mouth Once a day May 08, 2017 Active 1 tablet Levalbuterol HCl [facility] [address]-77 daily Active 0.5 ml Ipratropium-Albuterol [facility] [address]-61 Active not defined Vitamin B Complex [facility] 67980595587 Orally Active not defined Magnesium [facility] 29596535013 500 MG Orally Once a day Active 1 tablet with a meal Spiriva HandiHaler [facility] 76596940154 18 MCG Inhalation Once a day Jul 27, 2017 Active [address] [facility] 44215-21722 100 mg Orally daily Active as directed Aspirin EC [facility] 99998482874 81 MG Orally Once a day Active [address] [facility] 02858331772 40 MG Orally Once a day Active 1 capsule CoQ-[address] [facility] 08081467170 200 MG Orally Once a day Active 1 capsule with a meal Metoprolol Tartrate [facility] 16241095540 25 MG Orally Twice a day Active [address] [facility] 83537333399 10 MG Orally Once a day Active 1 tablet Fish Oil [facility] 62012097230 1000 mg Orally Once a day Active 1 capsule potassium ND 0 Oral Active 1 tab Vital Signs Date/Time: May 08, 2017 BMI 29.58 Index Weight 167 lbs Height 63 in Cardiac Monitoring Heart Rate 86 /min Blood Pressure Diastolic 64 mm Hg Blood Pressure Systolic 114 mm Hg Results No Known Results Summary Purpose eClinicalWorks Submission
--- OUTSIDE RECORDS SUMMARY | 2018-06-18 05:50 | XMS REPORT ---
Author Author Alyson Manuel [facility] eClinicalWorks Address Unknown Phone Unavailable Care Team Providers Care District Administrative Assistant Name Role Phone Alyson Manuel CP Unavailable Allergies No Known Allergies Problems Problem Type Condition Code Onset Dates Condition Status Problem History of aortic valve repair Z98.890 Active Problem Depression, unspecified depression type F32.9 Active Problem Prediabetes R73.03 Active Problem Hypertriglyceridemia E78.1 Active Problem Bilateral carotid artery disease I77.9 Active Problem H/O aortic valve replacement Z95.2 [...] of abdominal aortic aneurysm Z86.79 Active Medications No Known Medications Results No Known Results Summary Purpose eClinicalWorks Submission
--- OUTSIDE RECORDS SUMMARY | 2018-06-18 05:51 | XMS REPORT ---
Author Author Alyson Schaeffer [facility] eClinicalWorks Address Unknown Phone Unavailable Care Team Providers Care Cryptanalyst Name Role Phone Maksim Alyson CP Unavailable Allergies, Adverse Reactions, Alerts Substance Reaction Event Type Codeine Sulfate vomiting Drug Allergy Encounters Encounter Location Date RESULTS [facility] Mar 18, 2013 CONGESTION/SINUS [facility] Apr 30, 2014 1 day follow up [facility] May 01, 2014 follow up on breathing [facility] May 07, 2014 Other [facility] Mar 11, 2013 Test results [facility] Mar 12, 2013 PHYSICAL [facility] Mar 05, 2013 physical exam and fbw [facility] Jun 25, 2014 Problems Problem Type Condition ICD-9 Code Onset Dates Condition Status Assessment Routine general medical examination at a health care facility V70.0 Active Problem GERD (Esophageal reflux) 530.81 Active Problem Carotid artery disease 447.9 Active Problem History of repair of aneurysm of abdominal aorta V45.89 Active Problem Systolic murmur 785.2 Active Problem History of abdominal aortic aneurysm V12.59 Active Problem Hyperlipemia 272.4 Active Problem Osteopenia 733.90 Active Problem Former smoker V15.82 Active Problem Vitamin d deficiency 268.9 Active Assessment History of repair of aneurysm of abdominal aorta V45.89 Active Assessment History of abdominal aortic aneurysm V12.59 Active Assessment Former smoker V15.82 Active Assessment Systolic murmur 785.2 Active Assessment Hyperlipemia 272.4 Active Assessment Osteopenia 733.90 Active Assessment Vitamin d deficiency 268.9 Active Assessment Carotid artery disease 447.9 Active Assessment GERD (Esophageal reflux) 530.81 Active Assessment Menopausal and postmenopausal disorder 627.9 Active Medications Medication Code System Code Instructions Start Date End Date Status Dosage Caltrate 600+D Plus [facility] [address]-65 600-800 MG-UNIT Orally Twice a day Active 1 tablet Ipratropium [place] [facility] [address]-19 0.02 % Inhalation with xopenex breathing treatments four times a day May 01, 2014 Jun 30, 2014 Inactive as directed Multivitamins [facility] [address]-44 100 mg Orally daily Active as directed Nebulizer [facility] [address]122 0 inhalation with breahting treatments Apr 30, 2014 Inactive as directed Dulera [facility] [address]-45 200-5 MCG/ACT Inhalation Twice a day May 01, 2014 Active 2 puffs Simvastatin [facility] [address]-17 40 mg Orally Once a day (must see doctor before next refill) May 18, 2014 Active 1 tablet in the evening Xopenex [facility] [address]-76 1.25 MG/3ML Inhalation four times a day with atrovent May 01, 2014 Inactive [address] [facility] [address]-68 1000 mg Orally Once a day Active 1 capsule Nebulizer/Tubing/Mouthpiece [facility] [address]455-65208 0 inhalation with breathing treatments Apr 30, 2014 Inactive as directed Aspirin EC [facility] [address]-32 81 MG Orally Once a day Active [address] [facility] [address]-74 160-4.5 MCG/ACT Inhalation Twice a day Active 2 puffs Prilosec OTC [facility] 69[address]-37816 20 mg Orally Once a day Active 1 tablet ZyrTEC Unknown 0 10 mg Orally Once a day Active 1 tablet Social History Social History Element Qualifiers Date Reported Ethnicity . Status , Is yemeni your primary language? Yes Jun 25, 2014 children . 3 Jun 25, 2014 Tobacco Use: . Are you a: former smoker smoked more than 30 years 1-2 packs a day Jun 25, 2014 Marital Status: . Jun 25, 2014 Do you drink alcohol? . Status: Yes, Type: Wine, How often? 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
--- OUTSIDE RECORDS SUMMARY | 2018-06-18 05:51 | XMS REPORT ---
Author Author Alyson Manuel [facility] eClinicalWorks Address Unknown Phone Unavailable Care Team Providers Care Audit Director Name Role Phone Alyson Manuel CP Unavailable Allergies No Known Allergies Problems Problem Type Condition Code Onset Dates Condition Status Problem Chronic obstructive pulmonary disease, unspecified COPD type J44.9 Active Problem Dependent edema R60.9 Active Problem Gastroesophageal reflux disease, esophagitis presence not specified K21.9 Active Problem History of pulmonary embolism Z86.711 Active Problem Esophageal reflux K21.9 Active Problem Coronary artery disease involving [place] coronary artery of [place] heart without angina pectoris I25.10 Active Problem Other and unspecified hyperlipidemia E78.5 Active Problem Rheumatoid arthritis M06.9 Active Problem 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 Active Problem Bilateral carotid artery disease I77.9 Active Problem Dry eyes H04.123 Active Problem H/O aortic valve replacement Z95.2 Active Problem Hypertriglyceridemia E78.1 Active Problem Aortic aneurysm I71.9 Active Problem Systolic murmur I38 Active Problem Vitamin D deficiency E55.9 Active Problem 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
--- OUTSIDE RECORDS SUMMARY | 2018-06-18 05:51 | XMS REPORT ---
Author Author Alyson Manuel [facility] [place] eClinicalWorks Address Unknown Phone Unavailable Care Team Providers Care Timber Bucker Name Role Phone Alyson Manuel CP Unavailable Allergies No Known Allergies Problems Problem Type Condition Code Onset Dates Condition Status Problem Chronic obstructive pulmonary disease, unspecified COPD type J44.9 Active Problem Dependent edema R60.9 Active Problem Gastroesophageal reflux disease, esophagitis presence not specified K21.9 Active Problem History of pulmonary embolism Z86.711 Active Problem Esophageal reflux K21.9 Active Problem Coronary artery disease involving [place] coronary artery of [place] heart without angina pectoris I25.10 Active Problem [...] of abdominal aortic aneurysm Z86.79 Active Assessment Abnormal ultrasound of carotid artery R93.8 Active Problem Carotid artery disease I77.9 Active Problem Depression, unspecified depression type F32.9 Active Medications No Known Medications Results No Known Results Summary Purpose eClinicalWorks Submission
--- OUTSIDE RECORDS SUMMARY | 2018-06-18 05:51 | XMS REPORT ---
Author Author Kristine Wesley [facility] eClinicalWorks Address Unknown Phone Unavailable Care Team Providers Care Music Arranger Name Role Phone Kristine Wesley CP Unavailable Allergies, Adverse Reactions, Alerts Substance Reaction Event Type Codeine Sulfate vomiting Drug Allergy Encounters Encounter Location Date RESULTS [facility] Mar 18, 2013 CONGESTION/SINUS [facility] Apr 30, 2014 1 day follow up [facility] May 01, 2014 follow up on breathing [facility] May 07, 2014 Other [facility] Mar 11, 2013 Test results [facility] Mar 12, 2013 PHYSICAL [facility] Mar 05, 2013 Problems Problem Type Condition ICD-9 Code Onset Dates Condition Status Assessment SOB (shortness of breath) 786.05 Active Problem AAA (abdominal aortic aneurysm) 441.4 Active Problem Hyperlipemia 272.4 Active Problem Vitamin d deficiency 268.9 Active Problem Carotid artery disease 447.9 Active Assessment Acute bronchitis 466.0 Active Problem Osteopenia 733.90 Active Problem GERD (Esophageal reflux) 530.81 Active Medications Medication Code System Code Instructions Start Date End Date Status Dosage ZyrTEC Unknown 0 10 mg Orally Once a day Active 1 tablet Fish Oil [facility] [address]-57 1000 mg Orally Once a day Active 1 capsule Levaquin [facility] [address]-77 500 mg Orally Once a day Apr 30, 2014 May 07, 2014 Active 1 tablet Nebulizer [facility] 0[address]04-[address]120 0 inhalation with breahting treatments Apr 30, 2014 Active as directed PredniSONE Unknown 0 10 mg Orally Once a day May 01, 2014 May 10, 2014 Active take with food- 3 tabs daily for 3 days, then 2 tabs daily for 3 days, then 1 tab daily for 3 days Aspirin EC [facility] [address]-90 81 MG Orally Once a day Active 1 tablet Ipratropium [place] [facility] [address]-50 0.02 % Inhalation with xopenex breathing treatments four times a day May 01, 2014 Jun 30, 2014 Active as directed Dulera [facility] [address]-71 200-5 MCG/ACT Inhalation Twice a day May 01, 2014 Active 2 puffs Nebulizer/Tubing/Mouthpiece [facility] 58248-61188 0 inhalation with breathing treatments Apr 30, 2014 Active as directed DuoNeb [facility] [address]-29 0.5-2.5 (3) MG/3ML Inhalation Four times a day Apr 30, 2014 Active 3 ml Simvastatin [facility] [address]-59 40 mg Orally Once a day Active 1 tablet Multivitamins [facility] [address]-15 100 mg Orally daily Active as directed Bromfed DM [facility] [address]-18 30-2-10 MG/5ML Orally every 6 hrs Apr 30, 2014 May 10, 2014 Active 10 ml as needed Caltrate 600+D Plus [facility] [address]-26 600-800 MG-UNIT Orally Twice a day Active 1 tablet Prilosec OTC [facility] 74987-98565 20 mg Orally Once a day Active 1 tablet Xopenex [facility] [address]-39 1.25 MG/3ML Inhalation four times a day with atrovent May 01, 2014 Active 3 ml Social History Social History Element Qualifiers Date Reported children . 3 May 07, 2014 Tobacco Use: . Are you a: former smoker smoked more than 30 years 1-2 packs a day May 07, 2014 Marital Status: . May 07, 2014 Do you drink alcohol? . Status: Yes, Type: Wine, How often? 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
--- OUTSIDE RECORDS SUMMARY | 2018-06-18 05:51 | XMS REPORT ---
Author Author Alyson Schaeffer [facility] eClinicalWorks Address Unknown Phone Unavailable Care Team Providers Care Clinical Education Assistant Name Role Phone Maksim Alyson CP Unavailable Allergies, Adverse Reactions, Alerts Substance Reaction Event Type Codeine Sulfate vomiting Drug Allergy Encounters Encounter Location Date RESULTS [facility] Mar 18, 2013 Other [facility] Mar 11, 2013 Test results [facility] Mar 12, 2013 PHYSICAL [facility] Mar 05, 2013 Problems Problem Type Condition ICD-9 Code Onset Dates Condition Status Assessment Carotid artery disease 447.9 Active Assessment Vitamin d deficiency 268.9 Active Problem AAA (abdominal aortic aneurysm) 441.4 Active Problem Hyperlipemia 272.4 Active Problem Vitamin d deficiency 268.9 Active Problem Carotid artery disease 447.9 Active Assessment Hyperlipemia 272.4 Active Problem Osteopenia 733.90 Active Problem GERD (Esophageal reflux) 530.81 Active Medications Medication Code System Code Instructions Start Date End Date Status Dosage ZyrTEC MULTUM 79436 10 mg Orally Once a day Active 1 tablet Fish Oil [facility] [address]-13 1000 mg Orally Once a day Active 1 capsule Vitamin D (Ergocalciferol) [facility] [address]-89 48464 UNIT Orally once per week Mar 12, 2013 Jul 02, 2013 Active 1 capsule Multivitamins [facility] 26182-86136 100 mg Orally daily Active as directed Caltrate 600+D Plus [facility] [address]-30 600-800 MG-UNIT Orally Twice a day Active 1 tablet Aspirin EC [facility] [address]-29 81 MG Orally Once a day Active 1 tablet Prilosec OTC [facility] 11018-25583 20 mg Orally Once a day Active 1 tablet Simvastatin [facility] [address]-62 40 mg Orally Once a day Active 1 tablet Social History Social History Element Qualifiers Date Reported children . 3 Mar 18, 2013 Tobacco Use: . Are you a: current smoker, How many packs per day? 1-2 one pack per day, How many years have you smoked? greater than 30 Mar 18, 2013 Marital Status: . Mar 18, 2013 Do you drink alcohol? . Status: Yes, Type: Wine, How often? 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 Mar 18, 2013 Family history Qualifier Description Comment Date Reported Maternal Grandmother Comment not available Mar 18, 2013 Paternal Grandmother Comment not available Mar 18, 2013 Father cancer Mar 18, 2013 Maternal Grandfather Comment not available Mar 18, 2013 Mother congested heart failure, renal failure Mar 18, 2013 Paternal Grandfather Comment not available Mar 18, 2013 Vital Signs Date/Time: Mar 18, 2013 Weight 153 lbs Height 63 inches Cardiac Monitoring Heart Rate 62 Beats per Minute Blood Pressure Diastolic 68 mm Hg Blood Pressure Systolic 110 mm Hg Summary Purpose eClinicalWorks Submission
--- OUTSIDE RECORDS SUMMARY | 2018-06-18 05:51 | XMS REPORT ---
Author Author Alyson Schaeffer [facility] eClinicalWorks Address Unknown Phone Unavailable Care Team Providers Care Worship Director Name Role Phone Alyson Schaeffer CP Unavailable Encounters Encounter Location Date RESULTS [facility] Mar 18, 2013 CONGESTION/SINUS [facility] Apr 30, 2014 1 day follow up [facility] May 01, 2014 follow up on breathing [facility] May 07, 2014 Other [facility] Mar 11, 2013 Test results [facility] Mar 12, 2013 PHYSICAL [facility] Mar 05, 2013 ABD US/MCF [facility] Jul 15, 2014 physical exam and fbw [facility] Jun 25, 2014 CAROTID US/MFC [facility] Jul 15, 2014 Problems Problem Type Condition ICD-9 Code Onset Dates Condition Status Assessment Aortic aneurysm 441.9 Active Social History Social History Element Qualifiers Date Reported Ethnicity . Status , Is italian your primary language? Yes Jun 25, 2014 children . 3 Jun 25, 2014 Tobacco Use: . Are you a: former smoker smoked more than 30 years 1-2 packs a day Jun 25, 2014 Marital Status: . Jun 25, 2014 Do you drink alcohol? . Status: Yes, Type: Wine, How often? 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
--- OUTSIDE RECORDS SUMMARY | 2018-06-18 05:51 | XMS REPORT ---
Author Author Alyson Schaeffer [facility] eClinicalWorks Address Unknown Phone Unavailable Care Team Providers Care Paint Preparer Name Role Phone Alyson Schaeffer CP Unavailable Encounters Encounter Location Date Other [facility] Mar 11, 2013 Test results [facility] Mar 12, 2013 Problems Problem Type Condition ICD-9 Code Onset Dates Condition Status Problem Hyperlipemia 272.4 Active Problem Osteopenia 733.90 Active Problem AAA (abdominal aortic aneurysm) 441.4 Active Problem GERD (Esophageal reflux) 530.81 Active Problem Carotid artery disease 447.9 Active Medications Medication Code System Code Instructions Start Date End Date Status Dosage Vitamin D (Ergocalciferol) [facility] [address]-04 86475 UNIT Orally once per week Mar 12, 2013 Jul 02, 2013 Active 1 capsule Social History Social History Element Qualifiers Date Reported children . 3 Mar 05, 2013 Tobacco Use: . Are you a: current smoker, How many packs per day? 1-2 one pack per day, How many years have you smoked? greater than 30 Mar 05, 2013 Marital Status: . Mar 05, 2013 Do you drink alcohol? . Status: Yes, Type: Wine, How often? 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
--- OUTSIDE RECORDS SUMMARY | 2018-06-18 05:51 | XMS REPORT ---
Author Author Chris Garcia Organization eClinicalWorks Address Unknown Phone Unavailable Care Team Providers Care Bar Staff Name Role Phone Chris Garcia CP Unavailable [...] K21.9 Active Problem Coronary artery disease involving [place] coronary artery of [place] heart without angina pectoris I25.10 Active Problem [...] repair Z98.890 Active Problem Prediabetes R73.03 Active Assessment Bronchitis J40 Active Problem Osteopenia M85.80 Active Problem History of abdominal aortic aneurysm Z86.79 Active Problem Carotid artery disease I77.9 Active Problem Depression, unspecified depression type F32.9 Active Medications Medication Code System Code Instructions Start Date End Date Status Dosage ZyrTEC NDC 0 10 mg Orally prn Active 1 tablet Multivitamins [facility] 39223-78560 100 mg Orally daily Active as directed Levaquin [facility] 18205631901 500 mg Orally once a day Apr 30, 2018 May 07, 2018 Active 1 tablet Amoxicillin-Pot Clavulanate [facility] 53390747710 875-125 MG Orally every 12 hrs Active 1 tablet Symbicort [facility] [address]-00 prn Active not defined Metoprolol Tartrate [facility] 10110988193 25 MG Orally Twice a day Active 1 tablet Lasix [facility] 91229800760 40 MG Orally Once a day Active 1 tablet Align [facility] 30197278523 Orally Active not defined Aspirin EC [facility] 49313105159 81 MG Orally Once a day Active 1 tablet Lipitor [facility] 25818216654 20 MG Orally Once a day Active 1 tablet Levalbuterol HCl [facility] [address]-55 prn Active 0.5 ml Ipratropium-Albuterol [facility] [address]-54 Active not defined Hydroxychloroquine Sulfate [facility] 88108965654 200 MG Oral Active not defined Colace [facility] 03105930856 50 MG Orally Once a day Active 1 capsule as needed Restasis [facility] 54921402227 0.05 % Ophthalmic Twice a day Active 1 into affected eye Magnesium [facility] 39104736381 500 MG Orally Once a day Active 1 tablet with a meal Fish Oil [facility] 07824535991 1000 mg Orally Once a day Active 1 capsule Caltrate 600+D Plus [facility] 40018818728 600-800 MG-UNIT Orally Twice a day Active 1 tablet Xarelto [facility] [address]-21 20 mg by mouth Once a day Active 1 tablet CoQ-10 [facility] 96829412278 200 MG Orally Once a day Active 1 capsule with a meal Vitamin D [facility] 88129293451 2000 UNIT Orally Once a day Active 1 tablet Prilosec [facility] 25976862403 40 MG Orally Once a day Active 1 capsule Lexapro [facility] 87505810971 10 MG Orally Once a day Active 1 tablet Vitamin B Complex [facility] 84492907265 Orally Active not defined potassium ND 0 Oral Active 1 tab Vital Signs Date/Time: Apr 30, 2018 BMI 29.58 Index Weight 167 lbs Height 63 in Cardiac Monitoring Heart Rate 85 /min Blood Pressure Diastolic 72 mm Hg Blood Pressure Systolic 116 mm Hg Results Name Result Date Reference Range Unit Abnormality Flag CBC ----Platelets 209 [id number] ----NEUTROPHILS MID-0.6,GRA-5.2 [id number] ----MCHC 32.6 [id number] ----MCH 31.6 [id number] ----MCV 97.0 [id number] ----WBC 7.1 [id number] ----RDW 13.5 [id number] ----RBC 4.24 [id number] ----Hemoglobin 13.4 [id number] ----Hematocrit 41.1 [id number] Summary Purpose eClinicalWorks Submission
--- OUTSIDE RECORDS SUMMARY | 2018-06-18 05:51 | XMS REPORT ---
Author Author Kristine Wesley [facility] eClinicalWorks Address Unknown Phone Unavailable Care Team Providers Care Operational Test Mechanic Name Role Phone Kristine Wesley Unavailable Encounters Encounter Location Date RESULTS [facility] Mar 18, 2013 CONGESTION/SINUS [facility] Apr 30, 2014 1 day follow up [facility] May 01, 2014 follow up on breathing [facility] May 07, 2014 Other [facility] Mar 11, 2013 Test results [facility] Mar 12, 2013 PHYSICAL [facility] Mar 05, 2013 Problems Problem Type Condition ICD-9 Code Onset Dates Condition Status Assessment SOB (shortness of breath) 786.05 Active Assessment Cough 786.2 Active Problem AAA (abdominal aortic aneurysm) 441.4 Active Problem Hyperlipemia 272.4 Active Problem Vitamin d deficiency 268.9 Active Problem Carotid artery disease 447.9 Active Assessment Acute bronchitis 466.0 Active Problem Osteopenia 733.90 Active Problem GERD (Esophageal reflux) 530.81 Active Medications Medication Code System Code Instructions Start Date End Date Status Dosage Fish Oil [facility] [address]-37 1000 mg Orally Once a day Active 1 capsule Aspirin EC [facility] [address]-62 81 MG Orally Once a day Active 1 tablet DuoNeb [facility] [address]-89 0.5-2.5 (3) MG/3ML Inhalation Four times a day Apr 30, 2014 Active 3 ml Nebulizer/Tubing/Mouthpiece [facility] 64771-25871 0 inhalation with breathing treatments Apr 30, 2014 Active as directed Bromfed DM [facility] [address]-56 30-2-10 MG/5ML Orally every 6 hrs Apr 30, 2014 May 10, 2014 Active 10 ml as needed Caltrate 600+D Plus [facility] [address]-11 600-800 MG-UNIT Orally Twice a day Active 1 tablet Prilosec OTC [facility] 16630-17323 20 mg Orally Once a day Active 1 tablet ZyrTEC Unknown 0 10 mg Orally Once a day Active 1 tablet Multivitamins [facility] [address]-48 100 mg Orally daily Active as directed Nebulizer [facility] 58187-81795 0 inhalation with breahting treatments Apr 30, 2014 Active as directed Levaquin [facility] [address]-14 500 mg Orally Once a day Apr 30, 2014 May 07, 2014 Active 1 tablet Simvastatin [facility] [address]-57 40 mg Orally Once a day Active [...] Socially May 07, 2014 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
--- OUTSIDE RECORDS SUMMARY | 2018-06-18 05:51 | XMS REPORT ---
Author Author Alyson Schaeffer [facility] eClinicalWorks Address Unknown Phone Unavailable Care Team Providers Care Steam Brush Operator Name Role Phone Maksim Alyson CP Unavailable Allergies, Adverse Reactions, Alerts Substance Reaction Event Type Codeine Sulfate vomiting Drug Allergy Encounters Encounter Location Date RESULTS [facility] Mar 18, [address] [facility] Mar 11, [address] [facility] Mar 12, [address] [facility] Mar 05, 2013 Problems Problem Type Condition ICD-9 Code Onset Dates Condition Status Assessment GERD (Esophageal reflux) 530.81 Active Assessment Osteopenia 733.90 Active Assessment AAA (abdominal aortic aneurysm) 441.4 Active Assessment Mammogram screening (Other screening mammogram) V76.12 Active Assessment Carotid artery disease 447.9 Active Problem Hyperlipemia 272.4 Active Problem Osteopenia 733.90 Active Problem AAA (abdominal aortic aneurysm) 441.4 Active Assessment Annual physical exam V70.0 Active Assessment Hyperlipemia 272.4 Active Problem GERD (Esophageal reflux) 530.81 Active Problem Carotid artery disease 447.9 Active Medications Medication Code System Code Instructions Start Date End Date Status Dosage ZyrTEC MULTUM 91776 10 mg Orally Once a day Active 1 tablet Fish Oil [facility] [address]-04 1000 mg Orally Once a day Active 1 capsule Prilosec [facility] 95564-01666 20 mg Orally Once a day Active 1 tablet Multivitamins [facility] 59906-91375 100 mg Orally daily Active as directed Caltrate 600+D Plus [facility] [address]-56 600-800 MG-UNIT Orally Twice a day Active 1 tablet Aspirin EC [facility] [address]-39 81 MG Orally Once a day Active 1 tablet Simvastatin [facility] [address]-68 40 mg Orally Once a day Active [...] Socially Mar 05, 2013 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 Mar 05, 2013 Family history Qualifier Description Comment Date Reported Maternal Grandmother Comment not available Mar 05, 2013 Paternal Grandmother Comment not available Mar 05, 2013 Father cancer Mar 05, 2013 Maternal Grandfather Comment not available Mar 05, 2013 Mother congested heart failure, renal failure Mar 05, 2013 Paternal Grandfather Comment not available Mar 05, 2013 Vital Signs Date/Time: Mar 05, 2013 Weight 153 lbs Height 63 inches Temperature 98.0 F Cardiac Monitoring Heart Rate 64 Beats per Minute Blood Pressure Diastolic 68 mm Hg Blood Pressure Systolic 110 mm Hg Immunizations Vaccine Administration Date PNEUMOCOCCAL VACCINE Mar 05, 2013 Summary Purpose eClinicalWorks Submission
--- OUTSIDE RECORDS SUMMARY | 2018-06-18 05:51 | XMS REPORT ---
Author Author Manuel Farah Organization [employer] Address Unknown Phone Unavailable Care Team Providers Care Carpenter Repairer Name Role Phone Manuel Farah CP Unavailable Allergies, Adverse Reactions, Alerts Substance Reaction Event Type Codeine Sulfate vomiting Drug Allergy Problems Problem Type Condition Code Onset Dates Condition Status Problem Prediabetes R73.03 Active Assessment History of aortic valve repair Z98.890 Active Problem History of abdominal aortic aneurysm Z86.79 Active Assessment History of pulmonary embolism Z86.711 Active Problem Depression, unspecified depression type F32.9 Active Problem Chronic obstructive pulmonary disease, unspecified COPD type J44.9 Active Problem Dry eyes H04.123 Active Problem 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 Problem H/O aortic valve replacement Z95.2 Active Problem Other and unspecified hyperlipidemia E78.5 Active Problem Rheumatoid arthritis M06.9 Active Problem History of pulmonary embolism Z86.711 Active Assessment Leg swelling M79.89 Active Problem Dependent edema R60.9 Active Problem Gastroesophageal reflux disease, esophagitis presence not specified K21.9 Active Problem Hypertriglyceridemia E78.1 Active Problem Bilateral carotid artery disease I77.9 Active Problem 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 [address]-45 20 mg by mouth Once a day May 08, 2017 Active 1 tablet Aspirin EC ND 42585188422 81 MG Orally Once a day Active 1 tablet ZyrTEC NDC 0 10 mg Orally prn Active 1 tablet CoQ-10 ND 52691303204 200 MG Orally Once a day Active 1 capsule with a meal Lipitor ND 74857179876 20 MG Orally Once a day Active 1 tablet Metoprolol Tartrate [facility] 12021584301 25 MG Orally Twice a day Active 1 tablet potassium ND 0 Oral Active 1 tab Amoxicillin-Pot Clavulanate [facility] 81176030185 875-125 MG Orally every 12 hrs December 13, 2017 December 23, 2017 Active 1 tablet Multivitamins [facility] 87[address]-92530 100 mg Orally daily Active as directed Lasix [facility] 62747994013 40 MG Orally Once a day Active 1 tablet Vitamin D [facility] 33131487599 2000 UNIT Orally Once a day Active 1 tablet Fish Oil [facility] 43073046624 1000 mg Orally Once a day Active 1 capsule Ipratropium-Albuterol [facility] [address]-18 Active not defined Prilosec [facility] 75427784460 40 MG Orally Once a day Active 1 capsule Lexapro [facility] 01802649250 10 MG Orally Once a day Active 1 tablet Restasis [facility] 28435181048 0.05 % Ophthalmic Twice a day Active 1 into affected eye Align [facility] 95209012309 Orally Active not defined Levalbuterol HCl [facility] [address]-58 prn Active 0.5 ml Colace [facility] 71099004445 50 MG Orally Once a day Active 1 capsule as needed Vitamin B Complex [facility] 96088171868 Orally Active not defined Caltrate 600+D Plus [facility] 23443262768 600-800 MG-UNIT Orally Twice a day Active 1 tablet Magnesium [facility] 98111348540 500 MG Orally Once a day Active 1 tablet with a meal Symbicort [facility] [address]-18 prn Active not defined Vital Signs Date/Time: December 13, 2017 BMI 29.76 Index Weight 168 lbs Height 63 in Temperature 98.2 F Cardiac Monitoring Heart Rate 72 /min Blood Pressure Diastolic 62 mm Hg Blood Pressure Systolic 122 mm Hg Results No Known Results Summary Purpose [employer] Submission
--- OUTSIDE RECORDS SUMMARY | 2018-06-18 05:51 | XMS REPORT ---
Author Author Alyson Schaeffer [facility] e[employer] Address Unknown Phone Unavailable Care Team Providers Care Studio Control Operator Name Role Phone Alyson Schaeffer CP Unavailable Encounters Encounter Location Date Other [facility] Mar 11, 2013 Test results [facility] Mar 12, 2013 Problems Problem Type Condition ICD-9 Code Onset Dates Condition Status Problem Hyperlipemia 272.4 Active Problem Osteopenia 733.90 Active Problem AAA (abdominal aortic aneurysm) 441.4 Active Problem GERD (Esophageal reflux) 530.81 Active Problem Carotid artery disease 447.9 Active Social History Social History Element Qualifiers [...] Socially Mar 05, 2013 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
--- OUTSIDE RECORDS SUMMARY | 2018-06-18 05:51 | XMS REPORT ---
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 Active Assessment Rheumatoid arthritis M06.9 Active Assessment History of aortic valve repair Z98.890 Active Assessment History of pulmonary embolism Z86.711 Active Problem History of abdominal aortic aneurysm Z86.79 Active Assessment Leg swelling M79.89 Active Problem Depression, unspecified depression type F32.9 Active Assessment Hematoma T14.8XXA Active Problem Chronic obstructive pulmonary disease, unspecified COPD type J44.9 Active Problem Dependent edema R60.9 Active Problem Gastroesophageal reflux disease, esophagitis presence not specified K21.9 Active Problem History of pulmonary embolism Z86.711 Active Problem Coronary artery disease involving [place] coronary artery of [place] heart without angina pectoris I25.10 Active Problem Esophageal reflux K21.9 Active Problem Other and unspecified hyperlipidemia E78.5 Active Problem 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 Active Problem Rheumatoid arthritis M06.9 Active Problem Bilateral carotid artery disease I77.9 [...] R73.03 Active Problem Osteopenia M85.80 Active Problem Carotid artery disease I77.9 Active Medications Medication Code System Code Instructions Start Date End Date Status Dosage Xarelto [facility] [address]-33 20 mg by mouth Once a day Active 1 tablet Caltrate 600+D Plus [facility] 44308644158 600-800 MG-UNIT Orally Twice a day Active 1 tablet Magnesium [facility] 03190451469 500 MG Orally Once a day Active 1 tablet with a meal Align [facility] 70529422336 Orally Active not defined Vitamin B Complex [facility] 00857159149 Orally Active not defined Vitamin D [facility] 99193409387 2000 UNIT Orally Once a day Active 1 tablet Fish Oil [facility] 01034667199 1000 mg Orally Once a day Active 1 capsule potassium ND 0 Oral Active 1 tab Aspirin EC [facility] 92361040292 81 MG Orally Once a day Active 1 tablet Restasis [facility] 43767233426 0.05 % Ophthalmic Twice a day Active 1 into affected eye Metoprolol Tartrate [facility] 49526172192 25 MG Orally Twice a day Active 1 tablet Lipitor [facility] 02149259510 20 MG Orally Once a day Active 1 tablet Amoxicillin-Pot Clavulanate [facility] 45653865522 875-125 MG Orally every 12 hrs Active 1 tablet Colace [facility] 11263368098 50 MG Orally Once a day Active 1 capsule as needed Ipratropium-Albuterol [facility] [address]-54 Active not defined Levalbuterol HCl [facility] [address]-90 prn Active 0.5 ml Multivitamins [facility] 79301-58215 100 mg Orally daily Active as directed ZyrTEC ND 0 10 mg Orally prn Active 1 tablet Symbicort [facility] [address]-11 prn Active not defined Hydroxychloroquine Sulfate [facility] 46152204976 200 MG Oral Active not defined Lexapro [facility] 31523280141 10 MG Orally Once a day Active 1 tablet Lasix [facility] 98361860845 40 MG Orally Once a day Active 1 tablet CoQ-10 [facility] 44666117105 200 MG Orally Once a day Active 1 capsule with a meal Prilosec [facility] 04832516069 40 MG Orally Once a day Active 1 capsule Vital Signs Date/Time: December 21, 2017 BMI 29.76 Index Weight 168 lbs Height 63 in Temperature 98.1 F Cardiac Monitoring Heart Rate 101 /min Blood Pressure Diastolic 62 mm Hg Blood Pressure Systolic 108 mm Hg Results No Known Results Summary Purpose eClinicalWorks Submission
--- OUTSIDE RECORDS SUMMARY | 2018-06-18 05:51 | XMS REPORT ---
Author Author Alyson Schaeffer [facility] [employer]Works Address Unknown Phone Unavailable Care Team Providers Care Warp Changer Name Role Phone Alyson Scaheffer CP Unavailable Encounters Encounter Location Date RESULTS [facility] Mar 18, 2013 CONGESTION/SINUS [facility] Apr 30, 2014 1 day follow up [facility] May 01, 2014 follow up on breathing [facility] May 07, 2014 Other [facility] Mar 11, 2013 ECHO/MCF [facility] Jul 21, 2014 Test results [facility] Mar 12, 2013 PHYSICAL [facility] Mar 05, 2013 ABD US/[facility]CF [facility] Jul 15, 2014 physical exam and fbw [facility] Jun 25, 2014 CAROTID US/MFC [facility] Jul 15, 2014 Problems Problem Type Condition ICD-9 Code Onset Dates Condition Status Assessment Systolic murmur 785.2 Active Social History Social History Element Qualifiers Date Reported Ethnicity . Status , Is portuguese your primary language? Yes Jun 25, 2014 children . 3 Jun 25, 2014 Tobacco Use: . Are you a: former smoker smoked more than 30 years 1-2 packs a day Jun 25, 2014 Marital Status: . Jun 25, 2014 Do you drink alcohol? . Status: Yes, Type: Wine, How often? 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
--- OUTSIDE RECORDS SUMMARY | 2018-06-18 05:51 | XMS REPORT ---
Author Author Alyson Manuel [facility] [employer] Address Unknown Phone Unavailable Care Team Providers Care Life Skills Coach Name Role Phone Alyson Manuel CP Unavailable Allergies No Known Allergies Problems Problem Type Condition Code Onset Dates Condition Status Problem Chronic obstructive pulmonary disease, unspecified COPD type J44.9 Active Problem Dependent edema R60.9 Active Problem Gastroesophageal reflux disease, esophagitis presence not specified K21.9 Active Problem History of pulmonary embolism Z86.711 Active Problem Esophageal reflux K21.9 Active Problem Coronary artery disease involving [place] coronary artery of [place] heart without angina pectoris I25.10 Active Problem [...] Start Date End Date Status Dosage Colace [facility] 42831430709 50 MG Orally Once a day Active 1 capsule as needed Lasix [facility] 51208433586 40 MG Orally Once a day Active 1 tablet Caltrate 600+D Plus [facility] 57168171452 600-800 MG-UNIT Orally Twice a day Active 1 tablet Aspirin EC [facility] 13086736381 81 MG Orally Once a day Active 1 tablet Align [facility] 35961156487 Orally Active not defined Vitamin B Complex [facility] 68499285885 Orally Active not defined Levalbuterol HCl [facility] [address]-40 prn Active 0.5 ml potassium NDC 0 Oral Active 1 tab Xarelto [facility] [address]-36 20 mg by mouth Once a day Active 1 tablet Multivitamins [facility] 14131-91669 100 mg Orally daily Active as directed Symbicort [facility] [address]-85 prn Active not defined Vitamin D [facility] 15800354624 2000 UNIT Orally Once a day Active 1 tablet Metoprolol Tartrate [facility] 67385880208 25 MG Orally Twice a day Active 1 tablet Ipratropium-Albuterol [facility] [address]-06 Active not defined Prilosec [facility] 63445375752 40 MG Orally Once a day Active 1 capsule Lexapro [facility] 84515398745 10 MG Orally Once a day Active 1 tablet ZyrTEC ND 0 10 mg Orally prn Active 1 tablet Amoxicillin-Pot Clavulanate [facility] 53742602977 875-125 MG Orally every 12 hrs Active 1 tablet Lipitor [facility] 63580038554 20 MG Orally Once a day Active 1 tablet Hydroxychloroquine Sulfate [facility] 86191391697 200 MG Oral Active not defined Restasis [facility] 21225473558 0.05 % Ophthalmic Twice a day Active 1 into affected eye Fish Oil [facility] 07725024028 1000 mg Orally Once a day Active 1 capsule Magnesium [facility] 49208476273 500 MG Orally Once a day Active 1 tablet with a meal CoQ-10 [facility] 76025539801 200 MG Orally Once a day Active 1 capsule with a meal Results No Known Results Summary Purpose eClinicalWorks Submission
--- OUTSIDE RECORDS SUMMARY | 2018-06-18 05:51 | XMS REPORT ---
Author Author Kristine Wesley [facility] [employer] Address Unknown Phone Unavailable Care Team Providers Care Apprentice/Lineman Name Role Phone Kristine Wesley CP Unavailable Allergies, Adverse Reactions, Alerts Substance Reaction Event Type Codeine Sulfate vomiting Drug Allergy Encounters Encounter Location Date RESULTS [facility] Mar 18, 2013 CONGESTION/SINUS [facility] Apr 30, 2014 1 day follow up [facility] May 01, 2014 follow up on breathing [facility] May 07, 2014 Other [facility] Mar 11, 2013 Test results [facility] Mar 12, 2013 PHYSICAL [facility] Mar 05, 2013 Problems Problem Type Condition ICD-9 Code Onset Dates Condition Status Assessment Systolic murmur 785.2 Active Assessment SOB (shortness of breath) 786.05 Active Assessment Encounter for screening mammogram for malignant neoplasm of breast V76.12 Active Problem AAA (abdominal aortic aneurysm) 441.4 Active Problem Hyperlipemia 272.4 Active Problem Vitamin d deficiency 268.9 Active Problem Carotid artery disease 447.9 Active Assessment Acute bronchitis 466.0 Active Problem Osteopenia 733.90 Active Problem GERD (Esophageal reflux) 530.81 Active Medications Medication Code System Code Instructions Start Date End Date Status Dosage Simvastatin [facility] [address]-58 40 mg Orally Once a day Active 1 tablet Dulera [facility] [address]-32 200-5 MCG/ACT Inhalation Twice a day May 01, 2014 Active 2 puffs Xopenex [facility] [address]-43 1.25 MG/3ML Inhalation four times a day with atrovent May 01, 2014 Active 3 ml Caltrate 600+D Plus [facility] [address]-99 600-800 MG-UNIT Orally Twice a day Active 1 tablet DuoNeb [facility] [address]-33 0.5-2.5 (3) MG/3ML Inhalation Four times a day Apr 30, 2014 Inactive 3 ml Nebulizer/Tubing/Mouthpiece [facility] 29499-69624 0 inhalation with breathing treatments Apr 30, 2014 Active as directed Ipratropium Ozan [facility] [address]-59 0.02 % Inhalation with xopenex breathing treatments four times a day May 01, 2014 Jun 30, 2014 Active as directed Multivitamins [facility] [address]-44 100 mg Orally daily Active as directed ZyrTEC Unknown 0 10 mg Orally Once a day Active 1 tablet Fish Oil [facility] [address]-53 1000 mg Orally Once a day Active 1 capsule Levaquin [facility] [address]-68 500 mg Orally Once a day Apr 30, 2014 May 07, 2014 Active 1 tablet Nebulizer [facility] [address]9536-78265 0 inhalation with breahting treatments Apr 30, 2014 Active as directed PredniSONE Unknown 0 10 mg Orally Once a day May 01, 2014 May 10, 2014 Active take with food- 3 tabs daily for 3 days, then 2 tabs daily for 3 days, then 1 tab daily for 3 days Bromfed DM [facility] [address]-93 30-2-10 MG/5ML Orally every 6 hrs Apr 30, 2014 May 10, 2014 Active 10 ml as needed Prilosec OTC [facility] 28[address]-29642 20 mg Orally Once a day Active 1 tablet Aspirin EC [facility] [address]-61 81 MG Orally Once a day Active [...] Socially May 07, 2014 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
--- OUTSIDE RECORDS SUMMARY | 2018-06-18 05:51 | XMS REPORT ---
Author Author Alyson Schaeffer [facility] eClinicalWorks Address Unknown Phone Unavailable Care Team Providers Care Chain Puller Name Role Phone Alyson Schaeffer CP Unavailable Encounters Encounter Location Date RESULTS [facility] Mar 18, 2013 CONGESTION/SINUS [facility] Apr 30, [address] [facility] May 01, 2014 follow up on breathing [facility] May 07, [address] [facility] Mar 11, [address] [facility] Mar 12, [address] [facility] Mar 05, 2013 ABD US/MCF [facility] Jul 15, [address] [facility] Jun 25, 2014 CAROTID US/MFC [facility] Jul 15, 2014 Problems Problem Type Condition ICD-9 Code Onset Dates Condition Status Assessment Carotid artery disease 447.9 Active Social History Social History Element Qualifiers Date Reported Ethnicity . Status , Is icelandic your primary language? Yes Jun 25, 2014 children . 3 Jun 25, 2014 Tobacco Use: . Are you a: former smoker smoked more than 30 years 1-2 packs a day Jun 25, 2014 Marital Status: . Jun 25, 2014 Do you drink alcohol? . Status: Yes, Type: Wine, How often? 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
--- OUTSIDE RECORDS SUMMARY | 2018-06-18 05:51 | XMS REPORT ---
Author Author Alyson Manuel [facility] eClinicalWorks Address Unknown Phone Unavailable Care Team Providers Care Flight Director Name Role Phone Alyson Manuel CP Unavailable Allergies, Adverse Reactions, Alerts Substance Reaction Event Type Codeine Sulfate vomiting Drug Allergy Encounters Encounter Location Date RESULTS [facility] Mar 18, 2013 CONGESTION/SINUS [facility] Apr 30, 2014 1 day follow up [facility] May 01, 2014 follow up on breathing [facility] May 07, 2014 Other [facility] Mar 11, 2013 Test results [facility] Mar 12, 2013 PHYSICAL [facility] Mar 05, 2013 ABD US/MCF [facility] Jul 15, 2014 physical exam and fbw [facility] Jun 25, 2014 CAROTID US/MFC [facility] Jul 15, 2014 ABRASION ON ARM THAT DOESN'T SEEM TO BE HEALING [facility] Feb 11, 2015 immune disease [facility] Aug 12, 2015 Unknown [facility] November 28, 2014 copd [facility] December 03, 2014 ECHO RESULTS [facility] Aug 04, 2014 3 MONTH FOLLOW UP [facility] November 04, 2014 ECHO/MCF [facility] Jul 21, 2014 Other [facility] Jul 30, 2014 Problems Problem Type Condition ICD-9 Code Onset Dates Condition Status Problem Other and unspecified hyperlipidemia E78.5 Active Problem 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 Problem Vitamin D deficiency E55.9 Active Problem Carotid artery disease I77.9 Active Problem Systolic murmur I38 Active Problem Osteopenia M85.80 Active Problem History of abdominal aortic aneurysm V12.59 Active Problem History of repair of aneurysm of abdominal aorta V45.89 Active Problem H/O aortic valve replacement V43.3 Active Problem Aortic aneurysm I71.9 Active Assessment BMI 27.0-27.9,adult Z68.27 Active Assessment 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 Assessment BSOM (bilateral serous otitis media) H65.93 Active Assessment Normal body mass index Z78.9 Active Problem Esophageal reflux K21.9 Active Medications Medication Code System Code Instructions Start Date End Date Status Dosage Lasix [facility] [address]-50 40 MG Orally Once a day Active 1 tablet Metoprolol Tartrate [facility] [address]-75 25 MG Orally Twice a day Active 1 tablet Prilosec [facility] [address]-40 40 MG Orally Once a day Active 1 capsule Advair Diskus [facility] [address]-35 Active Unknown CoQ-10 [facility] 44606-47161 200 MG Orally Once a day Active 1 capsule with a meal ZyrTEC Unknown 0 10 mg Orally Once a day Active 1 tablet Spiriva HandiHaler [facility] [address]-52 18 MCG Inhalation Once a day Active 1 capsule Align [facility] 86867-78514 Orally Active Unknown Multivitamins [facility] [address]-25 100 mg Orally daily Active as directed Norel AD [facility] 53510-961-97 4-10-325 MG Orally every 4-6 hours Jun 02, 2015 Active 1 tablet as needed Fish Oil [facility] [address]-07 1000 mg Orally Once a day Active 1 capsule Aspirin EC [facility] [address]-18 81 MG Orally Once a day Active 1 tablet Caltrate 600+D Plus [facility] [address]-29 600-800 MG-UNIT Orally Twice a day Active 1 tablet Lipitor [facility] [address]-26 20 MG Orally Once a day Active 1 tablet Restasis [facility] [address]-74 0.05 % Ophthalmic Twice a day Active 1 into affected eye potassium Unknown 0 Oral Active 1 tab Symbicort [facility] [address]-77 160-4.5 MCG/ACT Inhalation Twice a day/ PRN Active 2 puffs Lexapro [facility] [address]-91 10 mg Orally Once a day Active 1 tablet Ipratropium-Albuterol [facility] [address]-96 Active Unknown Levalbuterol HCl [facility] [address]-23 daily Active 0.5 ml Colace [facility] [address]-80 50 MG Orally Once a day Active 1 capsule as needed Social History Social History Element Qualifiers Date Reported 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 Status , Is mexican your primary language? Yes Aug 12, 2015 Flu Vaccine: . Refuse Aug 12, 2015 children . 3 Aug 12, 2015 Depression Screening: . negative Aug 12, 2015 Tobacco Use: . Are you a: former smoker smoked more than 30 years 1-2 packs a day Aug 12, 2015 Do you have pets? . Status: Yes, Type: dog(s) Aug 12, 2015 Last Colonoscopy: . 07/17/2013 Aug 12, 2015 Pneumoccocal Vaccine . Yes Aug 12, 2015 Marital Status: . Aug 12, 2015 Caffeine intake? . Status: Yes, What type: Coffee Aug 12, 2015 Do you exercise? . Answer: No Aug 12, 2015 Fall Risk: . none in the past year Aug 12, 2015 Last Bone Density: . 06/25/2014 Aug 12, 2015 Do you drink alcohol? . Status: Yes, Type: Wine, How often? Socially Aug 12, 2015 Family history Qualifier Description Comment Date Reported Maternal Grandmother Comment not available Aug 12, 2015 Paternal Grandmother Comment not available Aug 12, 2015 Siblings Comment not available Aug 12, 2015 Maternal Grandfather Comment not available Aug 12, 2015 Children Comment not available Aug 12, 2015 Father cancer Aug 12, 2015 Paternal Grandfather Comment not available Aug 12, 2015 Mother congested heart failure, renal failure Aug 12, 2015 Other: Comment not available Aug 12, 2015 Vital Signs Date/Time: Aug 12, 2015 Weight 155 lbs Height 63 in Cardiac Monitoring Heart Rate 74 /min Blood Pressure Diastolic 62 mm Hg Blood Pressure Systolic 122 mm Hg Immunizations Vaccine Administration Date [place] [address] [place] [address] Aug 12, 2015 Summary Purpose eClinicalWorks Submission
--- OUTSIDE RECORDS SUMMARY | 2018-06-18 05:52 | XMS REPORT ---
Author Author Chris Garcia [facility] eClinicalWorks Address Unknown Phone Unavailable Care Team Providers Care Documentation Clerk Name Role Phone Chris Garcia CP Unavailable Allergies, Adverse Reactions, Alerts Substance Reaction Event Type Codeine Sulfate vomiting Drug Allergy Encounters Encounter Location Date RESULTS [facility] Mar 18, 2013 CONGESTION/SINUS [facility] Apr 30, 2014 1 day follow up [facility] May 01, 2014 follow up on breathing [facility] May 07, 2014 Other [facility] Mar 11, 2013 Test results [facility] Mar 12, 2013 PHYSICAL [facility] Mar 05, 2013 ABD US/MCF [facility] Jul 15, 2014 follow up on venous doppler [facility] Mar 24, 2016 Problems with leg [facility] Mar 23, 2016 physical exam and fbw [facility] Jun 25, 2014 CAROTID US/MFC [facility] Jul 15, 2014 ABRASION ON ARM THAT DOESN'T SEEM TO BE HEALING [facility] Feb 11, 2015 immune disease [facility] Aug 12, 2015 Unknown [facility] November 28, 2014 copd [facility] December 03, 2014 Hospital F/U [facility] Apr 24, 2016 ECHO RESULTS [facility] Aug 04, 2014 3 MONTH FOLLOW UP [facility] November 04, 2014 ECHO/MCF [facility] Jul 21, 2014 Other [facility] Jul 30, 2014 Needs referral [facility] Aug 20, 2015 Problems Problem Type Condition ICD-9 Code Onset Dates Condition Status Problem Other and unspecified hyperlipidemia E78.5 Active Problem History of repair of aneurysm of abdominal aorta V45.89 Active Problem Vitamin D deficiency E55.9 Active Problem Carotid artery disease I77.9 Active Problem Systolic murmur I38 Active Problem Osteopenia M85.80 Active Problem 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 Problem History of abdominal aortic aneurysm V12.59 Active Problem H/O aortic valve replacement V43.3 Active Problem Aortic aneurysm I71.9 Active Assessment Radial nerve palsy, 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 Assessment Hospital discharge follow-up Z09 Active Problem Rheumatoid arthritis M06.9 Active Problem Esophageal reflux K21.9 Active Medications Medication Code System Code Instructions Start Date End Date Status Dosage Lipitor [facility] [address]-44 20 MG Orally Once a day Active 1 tablet Caltrate 600+D Plus [facility] [address]-77 600-800 MG-UNIT Orally Twice a day Active 1 tablet Fish Oil [facility] [address]-50 1000 mg Orally Once a day Active 1 capsule ZyrTEC Unknown 0 10 mg Orally Once a day Active 1 tablet Levalbuterol HCl [facility] [address]-99 daily Active 0.5 ml Align [facility] 07274-02568 Orally Active Unknown Symbicort [facility] [address]-28 160-4.5 MCG/ACT Inhalation Twice a day/ PRN Active 2 puffs Ipratropium-Albuterol [facility] [address]-32 Active Unknown Lasix [facility] [address]-33 40 MG Orally Once a day Active 1 tablet CoQ-10 [facility] 49927-17955 200 MG Orally Once a day Active 1 capsule with a meal Advair Diskus [facility] [address]-66 Active Unknown Prilosec [facility] [address]-84 40 MG Orally Once a day Active 1 capsule Metoprolol Tartrate [facility] [address]-46 25 MG Orally Twice a day Active 1 tablet Spiriva HandiHaler [facility] [address]-68 18 MCG Inhalation Once a day Active 1 capsule Aspirin EC [facility] [address]-57 81 MG Orally Once a day Active 1 tablet Restasis [facility] [address]-10 0.05 % Ophthalmic Twice a day Active 1 into affected eye Colace [facility] [address]-17 50 MG Orally Once a day Active 1 capsule as needed Multivitamins [facility] [address]-78 100 mg Orally daily Active as directed Lexapro [facility] [address]-42 10 mg Orally Once a day Active 1 tablet potassium Unknown 0 Oral Active 1 tab Social History Social History Element Qualifiers Date Reported 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 Status , Is khmer your primary language? Yes Apr 24, 2016 Flu Vaccine: . Refuse Apr 24, 2016 children . 3 Apr 24, 2016 Depression Screening: . negative Apr 24, 2016 Tobacco Use: . Are you a: former smoker smoked more than 30 years 1-2 packs a day Apr 24, 2016 Do you have pets? . Status: Yes, Type: dog(s) Apr 24, 2016 Last Colonoscopy: . 07/17/2013 Apr 24, 2016 Pneumoccocal Vaccine . Yes Apr 24, 2016 Marital Status: . Apr 24, 2016 Caffeine intake? . Status: Yes, What type: Coffee Apr 24, 2016 Do you exercise? . Answer: No Apr 24, 2016 Fall Risk: . none in the past year Apr 24, 2016 Last Bone Density: . 06/25/2014 Apr 24, 2016 Do you drink alcohol? . Status: Yes, Type: Wine, How often? Socially Apr 24, 2016 Family history Qualifier Description Comment Date Reported Maternal Grandmother Comment not available Apr 24, 2016 Paternal Grandmother Comment not available Apr 24, 2016 Siblings Comment not available Apr 24, 2016 Maternal Grandfather Comment not available Apr 24, 2016 Children Comment not available Apr 24, 2016 Father cancer Apr 24, 2016 Paternal Grandfather Comment not available Apr 24, 2016 Mother congested heart failure, renal failure Apr 24, 2016 Other: Comment not available Apr 24, 2016 Vital Signs Date/Time: Apr 24, 2016 Weight 165 lbs Height 63 in Cardiac Monitoring Heart Rate 84 /min Blood Pressure Diastolic 68 mm Hg Blood Pressure Systolic 116 mm Hg Summary Purpose eClinicalWorks Submission
--- OUTSIDE RECORDS SUMMARY | 2018-06-18 05:52 | XMS REPORT ---
Author Author Alyson Manuel Organization eClinicalWorks Address Unknown Phone Unavailable Care Team Providers Care Sustainability Analyst Name Role Phone Alyson Manuel Unavailable Encounters Encounter Location Date RESULTS [facility] [...] 15, 2014 follow up on venous doppler [facility] Mar 24, [address] [facility] Mar 23, 2016 physical exam [address] fbw [facility] Jun 25, 2014 CAROTID US/MFC [facility] Jul 15, 2014 ABRASION ON ARM THAT DOESN'T SEEM TO BE HEALING [facility] Feb 11, [address] [facility] Aug 12, [address] [facility] November 28, [address] [facility] December 03, 2014 Hospital F/U [facility] Apr 24, [address] [facility] Aug 04, 2014 PHYSICAL/FBW [facility] Aug 01, [address] [facility] November 04, 2014 [facility] September 13, 2016 ECHO/MCF [facility] Jul 21, [address] [facility] Jul 30, [address] [facility] Aug 20, 2015 Problems Problem Type Condition ICD-9 Code Onset Dates Condition Status Problem Osteopenia M85.80 Active Problem Depression, unspecified depression type F32.9 Active Problem Prediabetes R73.03 Active Problem Chronic obstructive pulmonary disease, unspecified COPD type J44.9 Active Assessment History of abdominal aortic aneurysm Z86.79 Active Problem Gastroesophageal reflux disease, esophagitis presence not specified K21.9 Active Problem Bilateral carotid artery disease I77.9 Active Problem History of abdominal aortic aneurysm Z86.79 Active Problem History of aortic valve repair Z98.890 Active Problem Dry eyes H04.123 Active Problem Dependent edema R60.9 Active Problem Rheumatoid arthritis M06.9 Active Problem Esophageal reflux K21.9 Active Assessment Bilateral carotid artery disease I77.9 Active Assessment History of aortic aneurysm Z86.79 Active Problem 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 Problem Aortic aneurysm I71.9 Active Problem Other and unspecified hyperlipidemia E78.5 Active Problem Systolic murmur I38 Active Problem Vitamin D deficiency E55.9 Active Problem Carotid artery disease I77.9 Active Medications Medication Code System Code Instructions Start Date End Date Status Dosage Aspirin EC [facility] [address]-34 81 MG Orally Once a day Active 1 tablet Align [facility] 41978-51046 Orally Active Unknown ZyrTEC Unknown 0 10 mg Orally Once a day Active 1 tablet Colace [facility] [address]-53 50 MG Orally Once a day Active 1 capsule as needed Vitamin D [facility] [address]-47 2000 UNIT Orally Once a day Active 1 tablet Lasix [facility] [address]-24 40 MG Orally Once a day Active 1 tablet Advair Diskus [facility] [address]-52 250-50 MCG/DOSE Inhalation Twice a day Active 1 puff Caltrate 600+D Plus [facility] [address]-43 600-800 MG-UNIT Orally Twice a day Active 1 tablet Multivitamins [facility] [address]-76 100 mg Orally daily Active as directed Levalbuterol HCl [facility] [address]-76 daily Active 0.5 ml Vitamin B Complex [facility] 13411-17854 Orally Active Unknown Metoprolol Tartrate [facility] [address]-35 25 MG Orally Twice a day Active 1 tablet potassium Unknown 0 Oral Active 1 tab Fish Oil [facility] [address]-26 1000 mg Orally Once a day Active 1 capsule Lexapro [facility] [address]-59 10 MG Orally Once a day Active 1 tablet Magnesium [facility] 31546-16162 500 MG Orally Once a day Active 1 tablet with a meal Restasis [facility] [address]-93 0.05 % Ophthalmic Twice a day Active 1 into affected eye Spiriva HandiHaler [facility] [address]-22 18 MCG Inhalation Once a day Jul 27, 2017 Active 1 capsule Prilosec [facility] [address]-41 40 MG Orally Once a day Active 1 capsule CoQ-10 [facility] 26633-22102 200 MG Orally Once a day Active 1 capsule with a meal Lipitor [facility] [address]-58 20 MG Orally Once a day Active 1 tablet Ipratropium-Albuterol [facility] [address]-89 Active Unknown Social History Social History Element Qualifiers Date Reported 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 Status , Is bangladeshi your primary language? Yes Aug 01, 2016 Flu Vaccine: . Refuse Aug 01, 2016 children . 3 Aug 01, 2016 Depression Screening: . negative Aug 01, 2016 Tobacco Use: . Are you a: former smoker smoked more than 30 years 1-2 packs a day Aug 01, 2016 Do you have pets? . Status: Yes, Type: dog(s) Aug 01, 2016 Last Colonoscopy: . 07/17/2013 Aug 01, 2016 Pneumoccocal Vaccine . Yes Aug 01, 2016 Marital Status: . Aug 01, 2016 Smoke Exposure: . Second Hand Smoke Exposure: No Aug 01, 2016 Caffeine intake? . Status: Yes, What type: Coffee Aug 01, 2016 Do you exercise? . Answer: No Aug 01, 2016 Fall Risk: . none in the past year Aug 01, 2016 Last Bone Density: . 06/25/2014 Aug 01, 2016 Do you drink alcohol? . Status: Yes, Type: Wine, How often? Socially Aug 01, 2016 Summary Purpose eClinicalWorks Submission
--- OUTSIDE RECORDS SUMMARY | 2018-06-18 05:52 | XMS REPORT | Summary of Care ---
Author Organization Unknown Address Unknown Phone Unavailable Encounter [facility] Encntr_eugenie(DALY) [id number] Date(s): 10/06/14 - 10/06/14 [facility] [address] [place] [address]- Discharge Disposition: Home Physician Attending: Papi Dior MD Physician_Referring: Papi Dior MD Vital Signs No data available for this section Problem List Condition Effective Dates Status Health Status Informant 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 obstructive pulmonary disease(Confirmed) Hypertension(Confirm Resolved ed) Allergies, Adverse Reactions, Alerts Substance Reaction Severity Status codeine Active Medications No data available for this section Results No data available for this section Immunizations No data available for this section Procedures Procedure Date Related Diagnosis Body Site Cataract extraction Hysterectomy Operation Operation Social History Social History Type Response Alcohol Past, Previous treatment: None. Smoking Status Former smoker; Exposure to Tobacco Smoke None; Cigarette Smoking Last 365 Days No; Reg Smoking Cessation Counseling No Assessment and Plan No data available for this section
--- OUTSIDE RECORDS SUMMARY | 2018-06-18 05:52 | XMS REPORT ---
Author Author Alyson Manuel [facility] [place] eClinicalWorks Address Unknown Phone Unavailable Care Team Providers Care Wax Pattern Assembler Name Role Phone Gould Alyson Cruz CP Unavailable Allergies, Adverse Reactions, Alerts Substance Reaction Event Type Codeine Sulfate vomiting Drug Allergy Encounters Encounter Location Date RESULTS [facility] Mar 18, 2013 CONGESTION/SINUS [facility] Apr 30, 2014 1 day follow up [facility] May 01, 2014 follow up on breathing [facility] May 07, 2014 Other [facility] Mar 11, 2013 Test results [facility] Mar 12, 2013 PHYSICAL [facility] Mar 05, 2013 ABD US/MCF [facility] Jul 15, 2014 follow up on venous doppler [facility] Mar 24, 2016 Problems with leg [facility] Mar 23, 2016 physical exam and fbw [facility] Jun 25, 2014 CAROTID US/MFC [facility] Jul 15, 2014 ABRASION ON ARM THAT DOESN'T SEEM TO BE HEALING [facility] Feb 11, 2015 immune disease [facility] Aug 12, 2015 Unknown [facility] November 28, 2014 copd [facility] December 03, 2014 Hospital F/U [facility] Apr 24, 2016 ECHO RESULTS [facility] Aug 04, 2014 PHYSICAL/FBW [facility] Aug 01, 2016 3 MONTH FOLLOW UP [facility] November 04, 2014 ECHO/MCF [facility] Jul 21, 2014 Other [facility] Jul 30, 2014 Needs referral [facility] Aug 20, 2015 Problems Problem Type Condition ICD-9 Code Onset Dates Condition Status Assessment Normal body mass index Z78.9 Active Assessment Dependent edema R60.9 Active Assessment BMI 29.0-29.9,adult Z68.29 Active Assessment Dry eyes H04.123 Active Assessment Gastroesophageal reflux disease, esophagitis presence not specified K21.9 Active Assessment Prediabetes R73.03 Active Assessment Carotid artery disease I77.9 Active Assessment Osteopenia M85.80 Active Problem Aortic aneurysm I71.9 Active Assessment Chronic obstructive pulmonary disease, unspecified COPD type J44.9 Active Problem Systolic murmur I38 Active Assessment Depression, unspecified depression type F32.9 Active Problem Carotid artery disease I77.9 Active Problem Prediabetes R73.03 Active Problem Osteopenia M85.80 Active Problem Gastroesophageal reflux disease, esophagitis presence not specified K21.9 Active Problem Dry eyes H04.123 Active Assessment Other and unspecified hyperlipidemia E78.5 Active Assessment History of aortic valve repair Z98.890 Active Problem Chronic obstructive pulmonary disease, unspecified COPD type J44.9 Active Assessment History of abdominal aortic aneurysm Z86.79 Active Problem History of aortic valve repair Z98.890 Active Problem Depression, unspecified depression type F32.9 Active Problem Dependent edema R60.9 Active Problem History of abdominal aortic aneurysm Z86.79 Active Assessment Routine general medical examination at a health care facility Z00.00 Active Problem Rheumatoid arthritis M06.9 Active Assessment Menopausal and postmenopausal disorder N95.9 Active Assessment Screening for malignant neoplasm of breast Z12.39 Active Problem Vitamin D deficiency E55.9 Active Problem 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 Problem Esophageal reflux K21.9 Active Problem Other and unspecified hyperlipidemia E78.5 Active Medications Medication Code System Code Instructions Start Date End Date Status Dosage Magnesium [facility] 39990-[address]95 500 MG Orally Once a day Active 1 tablet with a meal Colace [facility] [address]-68 50 MG Orally Once a day Active 1 capsule as needed Multivitamins [facility] [address]-42 100 mg Orally daily Active as directed ZyrTEC Unknown 0 10 mg Orally Once a day Active 1 tablet Lipitor [facility] [address]-84 20 MG Orally Once a day Active 1 tablet Restasis [facility] [address]-94 0.05 % Ophthalmic Twice a day Active 1 into affected eye Ipratropium-Albuterol [facility] [address]-08 Active Unknown Vitamin B Complex [facility] 33646-80282 Orally Active Unknown Vitamin D [facility] [address]-07 2000 UNIT Orally Once a day Active 1 tablet Prilosec [facility] [address]-57 40 MG Orally Once a day Active 1 capsule Lexapro [facility] [address]-11 10 MG Orally Once a day Active 1 tablet Symbicort [facility] [address]-40 160-4.5 MCG/ACT Inhalation Twice a day/ PRN Inactive 2 puffs Lasix [facility] [address]-01 40 MG Orally Once a day Active 1 tablet Advair Diskus [facility] [address]-32 250-50 MCG/DOSE Inhalation Twice a day Active 1 puff Spiriva HandiHaler [facility] [address]-28 18 MCG Inhalation Once a day Jul 27, 2017 Active 1 capsule Aspirin EC [facility] [address]-41 81 MG Orally Once a day Active 1 tablet Caltrate 600+D Plus [facility] [address]-72 600-800 MG-UNIT Orally Twice a day Active 1 tablet Levalbuterol HCl [facility] [address]-88 daily Active 0.5 ml Metoprolol Tartrate [facility] [address]-56 25 MG Orally Twice a day Active 1 tablet Fish Oil [facility] [address]-45 1000 mg Orally Once a day Active 1 capsule potassium Unknown 0 Oral Active 1 tab CoQ-10 [facility] 81930-09996 200 MG Orally Once a day Active 1 capsule with a meal Align [facility] 53152-17556 Orally Active Unknown Social History Social History Element Qualifiers Date Reported 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 Status , Is georgian your primary language? Yes Aug 01, 2016 [...] Wine, How often? Socially Aug 01, 2016 Vital Signs Date/Time: Aug 01, 2016 Weight 169 lbs Height 63 in Cardiac Monitoring Heart Rate 88 /min Blood Pressure Diastolic 56 mm Hg Blood Pressure Systolic 118 mm Hg Summary Purpose eClinicalWorks Submission
--- OUTSIDE RECORDS SUMMARY | 2018-06-18 05:52 | XMS REPORT ---
Author Author Alyson Lenz [facility] eClinicalWorks Address Unknown Phone Unavailable Care Team Providers Care Stock Sorter Name Role Phone Alyson Lenz CP Unavailable Allergies, Adverse Reactions, Alerts Substance Reaction Event Type Codeine Sulfate vomiting Drug Allergy Encounters Encounter Location Date RESULTS [facility] Mar 18, 2013 CONGESTION/SINUS [facility] Apr 30, 2014 1 day follow up [facility] May 01, 2014 follow up on breathing [facility] May 07, 2014 Other [facility] Mar 11, 2013 Test results [facility] Mar 12, 2013 PHYSICAL [facility] Mar 05, 2013 ABD US/MCF [facility] Jul 15, 2014 physical exam and fbw [facility] Jun 25, 2014 CAROTID US/MFC [facility] Jul 15, 2014 Unknown [facility] November 28, 2014 copd [facility] December 03, 2014 ECHO RESULTS [facility] Aug 04, 2014 3 MONTH FOLLOW UP [facility] November 04, 2014 ECHO/MCF [facility] Jul 21, 2014 Other [facility] Jul 30, 2014 Problems Problem Type Condition ICD-9 Code Onset Dates Condition Status Problem GERD (Esophageal reflux) 530.81 Active Problem Hyperlipemia 272.4 Active Problem Osteopenia 733.90 Active Problem Aortic aneurysm 441.9 Active Problem History of abdominal aortic aneurysm V12.59 Active Problem H/O aortic valve replacement V43.3 Active Problem Former smoker V15.82 Active Problem Vitamin d deficiency 268.9 Active Problem History of repair of aneurysm of abdominal aorta V45.89 Active Problem Systolic murmur 785.2 Active Assessment URI (upper respiratory infection) 465.9 Active Assessment Acute exacerbation of chronic obstructive pulmonary disease (COPD) 491.21 Active Problem Carotid artery disease 447.9 Active Medications Medication Code System Code Instructions Start Date End Date Status Dosage Lexapro [facility] [address]-37 10 mg Orally Once a day Active 1 tablet Lasix [facility] [address]-40 40 MG Orally Once a day Active 1 tablet Metoprolol Tartrate [facility] [address]-04 25 MG Orally Twice a day Active 1 tablet Ipratropium-Albuterol [facility] [address]-03 Active Unknown Colace [facility] [address]-89 50 MG Orally Once a day Active 1 capsule as needed Lipitor [facility] [address]-14 20 MG Orally Once a day Active 1 tablet Levalbuterol HCl [facility] [address]-67 daily Active 0.5 ml Multivitamins [facility] [address]-68 100 mg Orally daily Active as directed Prilosec [facility] [address]-25 40 MG Orally Once a day Active 1 capsule Caltrate 600+D Plus [facility] [address]-66 600-800 MG-UNIT Orally Twice a day Active 1 tablet Restasis [facility] [address]-54 0.05 % Ophthalmic Twice a day Active 1 into affected eye Aspirin EC [facility] [address]-16 81 MG Orally Once a day Active 1 tablet Fish Oil [facility] [address]-83 1000 mg Orally Once a day Active 1 capsule Vitamin D [facility] [address]-92 1000 UNIT Orally Once a day Active 1 tablet Ceftin [facility] [address]-59 500 MG Orally Twice a day Active 1 tablet potassium Unknown 0 Oral Active 1 tab Align [facility] 40357-92891 Orally Active Unknown Vitamin B Complex [facility] 0[address]-82975 Orally Active Unknown Spiriva HandiHaler [facility] [address]-60 18 MCG Inhalation Once a day Active 1 capsule Hydrocodone-Acetaminophen [facility] [address]-54 10-250 MG Orally Active Unknown ZyrTEC Unknown 0 10 mg Orally Once a day Active 1 tablet Advair Diskus [facility] [address]-66 Active Unknown Symbicort [facility] [address]-09 160-4.5 MCG/ACT Inhalation Twice a day/ PRN Active 2 puffs Social History Social History Element Qualifiers Date Reported Pneumoccocal Vaccine . Yes December 03, 2014 Depression Screening: . negative December 03, 2014 Ethnicity . Status , Is zambian your primary language? Yes December 03, 2014 children . 3 December 03, 2014 Tobacco Use: . Are you a: former smoker smoked more than 30 years 1-2 packs a day December 03, 2014 Marital Status: . December 03, 2014 Do you drink alcohol? . Status: Yes, Type: Wine, How often? 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
--- OUTSIDE RECORDS SUMMARY | 2018-06-18 05:52 | XMS REPORT ---
Author Author Alyson Lenz [facility] eClinicalWorks Address Unknown Phone Unavailable Care Team Providers Care Paver Operator Name Role Phone Alyson Lenz Unavailable Encounters Encounter Location Date RESULTS [facility] Mar 18, 2013 CONGESTION/SINUS [facility] Apr 30, 2014 1 day follow up [facility] May 01, 2014 follow up on breathing [facility] May 07, 2014 Other [facility] Mar 11, 2013 Test results [facility] Mar 12, 2013 PHYSICAL [facility] Mar 05, 2013 ABD US/MCF [facility] Jul 15, 2014 physical exam and fbw [facility] Jun 25, 2014 CAROTID US/MFC [facility] Jul 15, 2014 Unknown [facility] November 28, 2014 ECHO RESULTS [facility] Aug 04, 2014 3 MONTH FOLLOW UP [facility] November 04, 2014 ECHO/MCF [facility] Jul 21, 2014 Other [facility] Jul 30, 2014 Problems Problem Type Condition ICD-9 Code Onset Dates Condition Status Problem GERD (Esophageal reflux) 530.81 Active Problem Hyperlipemia 272.4 Active Problem Osteopenia 733.90 Active Problem Carotid artery disease 447.9 Active Problem Aortic aneurysm 441.9 Active Problem History of abdominal aortic aneurysm V12.59 Active Problem H/O aortic valve replacement V43.3 Active Problem Former smoker V15.82 Active Problem Vitamin d deficiency 268.9 Active Problem History of repair of aneurysm of abdominal aorta V45.89 Active Problem Systolic murmur 785.2 Active Social History Social History Element Qualifiers Date Reported Ethnicity . Status , Is serbian your primary language? Yes November 04, 2014 children . 3 November 04, 2014 Tobacco Use: . Are you a: former smoker smoked more than 30 years 1-2 packs a day November 04, 2014 Marital Status: . November 04, 2014 Do you drink alcohol? . Status: Yes, Type: Wine, How often? 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
--- OUTSIDE RECORDS SUMMARY | 2018-06-18 05:52 | XMS REPORT ---
Author Author Alyson Schaeffer [facility] eClinicalWorks Address Unknown Phone Unavailable Care Team Providers Care Structures Engineer Name Role Phone Luis FernandoAnthony Alyson CP Unavailable Allergies, Adverse Reactions, Alerts Substance Reaction Event Type Codeine Sulfate vomiting Drug Allergy Encounters Encounter Location Date RESULTS [facility] Mar 18, 2013 CONGESTION/SINUS [facility] Apr 30, 2014 1 day follow up [facility] May 01, 2014 follow up on breathing [facility] May 07, 2014 Other [facility] Mar 11, 2013 Test results [facility] Mar 12, 2013 PHYSICAL [facility] Mar 05, 2013 ABD US/MCF [facility] Jul 15, 2014 physical exam and fbw [facility] Jun 25, 2014 CAROTID US/MFC [facility] Jul 15, 2014 ECHO RESULTS [facility] Aug 04, 2014 ECHO/MCF [facility] Jul 21, 2014 Other [facility] Jul 30, 2014 Problems Problem Type Condition ICD-9 Code Onset Dates Condition Status Problem Carotid artery disease 447.9 Active Problem Osteopenia 733.90 Active Problem GERD (Esophageal reflux) 530.81 Active Assessment Aortic stenosis 424.1 Active Problem History of abdominal aortic aneurysm V12.59 Active Problem History of repair of aneurysm of abdominal aorta V45.89 Active Problem Aortic aneurysm 441.9 Active Problem Vitamin d deficiency 268.9 Active Problem Hyperlipemia 272.4 Active Problem Systolic murmur 785.2 Active Problem Former smoker V15.82 Active Medications Medication Code System Code Instructions Start Date End Date Status Dosage Fish Oil [facility] [address]-34 1000 mg Orally Once a day Active 1 capsule Aspirin [facility] [address]-39 81 MG Orally Once a day Active [address] [facility] [address]-31 20 MG Orally Once a day Active 1 capsule Symbicort [facility] [address]-58 160-4.5 MCG/ACT Inhalation Twice a day/ PRN Active 2 puffs Multivitamins [facility] [address]-54 100 mg Orally daily Active as directed Simvastatin [facility] [address]-81 40 mg Orally Once a day May 18, 2014 Active 1 tablet in the evening Vitamin D [facility] [address]-40 1000 UNIT Orally Once a day Active 1 tablet Vitamin B Complex [facility] 7400[address]109 Orally Active Unknown Prilosec OTC [facility] 76766-96953 20 mg Orally Once a day Active 1 tablet Caltrate 600+D Plus [facility] [address]-45 600-800 MG-UNIT Orally Twice a day Active 1 tablet ZyrTEC Unknown 0 10 mg Orally Once a day Active 1 tablet Social History Social History Element Qualifiers Date Reported Ethnicity . Status , Is khmer your primary language? Yes Aug 04, 2014 children . 3 Aug 04, 2014 Tobacco Use: . Are you a: former smoker smoked more than 30 years 1-2 packs a day Aug 04, 2014 Marital Status: . Aug 04, 2014 Do you drink alcohol? . Status: Yes, Type: Wine, How often? 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
--- OUTSIDE RECORDS SUMMARY | 2018-06-18 05:52 | XMS REPORT ---
Author Author Alyson Manuel [facility] [place] eClinicalWorks Address Unknown Phone Unavailable Care Team Providers Care Baggage Smasher Name Role Phone Alyson Manuel CP Unavailable Allergies, Adverse Reactions, Alerts Substance Reaction Event Type Codeine Sulfate vomiting Drug Allergy Encounters Encounter Location Date RESULTS [facility] Mar 18, 2013 CONGESTION/SINUS [facility] Apr 30, 2014 1 day follow up [facility] May 01, 2014 follow up on breathing [facility] May 07, 2014 Other [facility] Mar 11, 2013 Test results [facility] Mar 12, 2013 PHYSICAL [facility] Mar 05, 2013 ABD US/MCF [facility] Jul 15, 2014 Problems with leg [facility] Mar 23, 2016 physical exam and fbw [facility] Jun 25, 2014 CAROTID US/MFC [facility] Jul 15, 2014 ABRASION ON ARM THAT DOESN'T SEEM TO BE HEALING [facility] Feb 11, 2015 immune disease [facility] Aug 12, 2015 Unknown [facility] November 28, 2014 copd [facility] December 03, 2014 ECHO RESULTS [facility] Aug 04, 2014 3 MONTH FOLLOW UP [facility] November 04, 2014 ECHO/MCF [facility] Jul 21, 2014 Other [facility] Jul 30, 2014 Needs referral [facility] Aug [...] Active Problem Aortic aneurysm I71.9 Active Assessment Right knee pain M25.561 Active Assessment Right calf pain M79.661 Active Problem Rheumatoid arthritis M06.9 Active Assessment Lung crackles R09.89 Active Problem Esophageal reflux K21.9 Active Medications Medication Code System Code Instructions Start Date End Date Status Dosage Multivitamins [facility] [address]-23 100 mg Orally daily Active as directed Lasix [facility] [address]-82 40 MG Orally Once a day Active 1 tablet Lexapro [facility] [address]-49 10 mg Orally Once a day Active 1 tablet Restasis [facility] [address]-69 0.05 % Ophthalmic Twice a day Active 1 into affected eye Voltaren [facility] [address]-70 1 % Transdermal every 4 hours to right knee Mar 23, 2016 September 19, 2016 Active as directed Caltrate 600+D Plus [facility] [address]-85 600-800 MG-UNIT Orally Twice a day Active 1 tablet Levalbuterol HCl [facility] [address]-19 daily Active 0.5 ml Fish Oil [facility] [address]-32 1000 mg Orally Once a day Active 1 capsule ZyrTEC Unknown 0 10 mg Orally Once a day Active 1 tablet Aspirin EC [facility] [address]-05 81 MG Orally Once a day Active 1 tablet Prilosec [facility] [address]-27 40 MG Orally Once a day Active 1 capsule Lipitor [facility] [address]-63 20 MG Orally Once a day Active 1 tablet Spiriva HandiHaler [facility] [address]-21 18 MCG Inhalation Once a day Active 1 capsule CoQ-10 [facility] 12192-85601 200 MG Orally Once a day Active 1 capsule with a meal Ipratropium-Albuterol [facility] [address]-74 Active Unknown potassium Unknown 0 Oral Active 1 tab Metoprolol Tartrate [facility] [address]-39 25 MG Orally Twice a day Active 1 tablet Colace [facility] [address]-62 50 MG Orally Once a day Active 1 capsule as needed Symbicort [facility] [address]-69 160-4.5 MCG/ACT Inhalation Twice a day/ PRN Active 2 puffs Align [facility] 20375-31655 Orally Active Unknown Advair Steve [facility] [address]-52 Active Unknown Norel AD [facility] 77582-064-22 4-10-325 MG Orally every 4-6 hours Jun 02, 2015 Active 1 tablet as needed Social History Social History Element Qualifiers Date Reported 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 Status , Is mongolian your primary language? Yes Mar 24, 2016 Flu Vaccine: . Refuse Mar 24, 2016 children . 3 Mar 24, 2016 Depression Screening: . negative Mar 24, 2016 Tobacco Use: . Are you a: former smoker smoked more than 30 years 1-2 packs a day Mar 24, 2016 Do you have pets? . Status: Yes, Type: dog(s) Mar 24, 2016 Last Colonoscopy: . 07/17/2013 Mar 24, 2016 Pneumoccocal Vaccine . Yes Mar 24, 2016 Marital Status: . Mar 24, 2016 Caffeine intake? . Status: Yes, What type: Coffee Mar 24, 2016 Do you exercise? . Answer: No Mar 24, 2016 Fall Risk: . none in the past year Mar 24, 2016 Last Bone Density: . 06/25/2014 Mar 24, 2016 Do you drink alcohol? . Status: Yes, Type: Wine, How often? Socially Mar 24, 2016 Family history Qualifier Description Comment Date Reported Maternal Grandmother Comment not available Mar 24, 2016 Paternal Grandmother Comment not available Mar 24, 2016 Siblings Comment not available Mar 24, 2016 Maternal Grandfather Comment not available Mar 24, 2016 Children Comment not available Mar 24, 2016 Father cancer Mar 24, 2016 Paternal Grandfather Comment not available Mar 24, 2016 Mother congested heart failure, renal failure Mar 24, 2016 Other: Comment not available Mar 24, 2016 Vital Signs Date/Time: Mar 23, 2016 Weight 166 lbs Height 63 in Cardiac Monitoring Heart Rate 94 /min Blood Pressure Diastolic 62 mm Hg Blood Pressure Systolic 110 mm Hg Results Knee 3 views - Right Xray Summary Purpose eClinicalWorks Submission
--- OUTSIDE RECORDS SUMMARY | 2018-06-18 05:52 | XMS REPORT ---
Author Author Alyson Schaeffer [facility] eClinicalWorks Address Unknown Phone Unavailable Care Team Providers Care Smelter Charger Name Role Phone Alyson Schaeffer Unavailable Encounters Encounter Location Date RESULTS [facility] Mar 18, 2013 CONGESTION/SINUS [facility] Apr 30, 2014 1 day follow up [facility] May 01, 2014 follow up on breathing [facility] May 07, 2014 Other [facility] Mar 11, 2013 ECHO/MCF [facility] Jul 21, 2014 Test results [facility] Mar 12, 2013 Other [facility] Jul 30, 2014 PHYSICAL [facility] Mar 05, 2013 ABD US/MCF [facility] Jul 15, 2014 physical exam and fbw [facility] Jun 25, 2014 CAROTID US/MFC [facility] Jul 15, 2014 Problems Problem Type Condition ICD-9 Code Onset Dates Condition Status Problem Carotid artery disease 447.9 Active Problem Osteopenia 733.90 Active Problem GERD (Esophageal reflux) 530.81 Active Problem History of abdominal aortic aneurysm V12.59 Active Problem History of repair of aneurysm of abdominal aorta V45.89 Active Problem Aortic aneurysm 441.9 Active Problem Vitamin d deficiency 268.9 Active Problem Hyperlipemia 272.4 Active Problem Systolic murmur 785.2 Active Problem Former smoker V15.82 Active Social History Social History Element Qualifiers Date Reported Ethnicity . Status , Is botswanan your primary language? Yes Jun 25, 2014 children . 3 Jun 25, 2014 Tobacco Use: . Are you a: former smoker smoked more than 30 years 1-2 packs a day Jun 25, 2014 Marital Status: . Jun 25, 2014 Do you drink alcohol? . Status: Yes, Type: Wine, How often? 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
--- OUTSIDE RECORDS SUMMARY | 2018-06-18 05:52 | XMS REPORT | CCD ---
Author Author Auto Generated Organization [facility] Address Unknown Phone Unavailable Care Team Providers Care Prime Minister Name Role Phone Alyson Lenz RP Allergies, Adverse Reactions, Alerts Substance Reaction Status NKDA Active
--- OUTSIDE RECORDS SUMMARY | 2018-06-18 05:52 | XMS REPORT ---
Author Author Alyson Manuel Organization eClinicalWorks Address Unknown Phone Unavailable Care Team Providers Care Hospitality Internship Name Role Phone Alyson Manuel Unavailable Encounters Encounter Location Date ABD US/MCF [facility] Jul 15, 2014 ABRASION ON ARM THAT DOESN'T SEEM TO BE HEALING [facility] Feb 11, 2015 immune disease [facility] Aug 12, 2015 Unknown [facility] November 28, 2014 copd [facility] December 03, 2014 ECHO RESULTS [facility] Aug 04, 2014 3 MONTH FOLLOW UP [facility] November 04, 2014 ECHO/MCF [facility] Jul 21, 2014 Other [facility] Jul 30, 2014 Needs referral [facility] Aug 20, 2015 RESULTS [facility] Mar 18, 2013 CONGESTION/SINUS [facility] Apr 30, 2014 1 day follow up [facility] May 01, 2014 follow up on breathing [facility] May 07, 2014 Other [facility] Mar 11, 2013 Test results [facility] Mar 12, 2013 PHYSICAL [facility] Mar 05, 2013 follow up on venous doppler [facility] Mar 24, 2016 Problems with leg [facility] Mar 23, 2016 physical exam and fbw [facility] Jun 25, 2014 CAROTID US/MFC [facility] Jul 15, 2014 Hospital F/U [facility] Apr 24, 2016 PHYSICAL/FBW [facility] Aug 01, 2016 [facility] September 13, 2016 Carotid Extracranial US/MCF [facility] September 15, 2016 Problems Problem Type Condition ICD-9 Code Onset [...] Assessment Bilateral carotid artery disease I77.9 Active Problem 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 Problem Aortic aneurysm I71.9 Active Problem Other and unspecified hyperlipidemia E78.5 Active Problem Systolic murmur I38 Active Problem Vitamin D deficiency E55.9 Active Problem Carotid artery disease I77.9 Active Medications Medication Code System Code Instructions Start Date End Date Status Dosage CoQ-10 [facility] [address]602 200 MG Orally Once a day Active 1 capsule with a meal Spiriva HandiHaler [facility] [address]-96 18 MCG Inhalation Once a day Jul 27, 2017 Active 1 capsule Lexapro [facility] [address]-51 10 MG Orally Once a day Active 1 tablet potassium Unknown 0 Oral Active 1 tab Lasix [facility] [address]-06 40 MG Orally Once a day Active 1 tablet Colace [facility] [address]-45 50 MG Orally Once a day Active 1 capsule as needed Align [facility] 95973-12814 Orally Active Unknown Fish Oil [facility] [address]-98 1000 mg Orally Once a day Active 1 capsule Ipratropium-Albuterol [facility] [address]-59 Active Unknown Lipitor [facility] [address]-77 20 MG Orally Once a day Active 1 tablet Prilosec [facility] [address]-57 40 MG Orally Once a day Active 1 capsule Vitamin B Complex [facility] 95269-26240 Orally Active Unknown Vitamin D [facility] [address]-27 2000 UNIT Orally Once a day Active 1 tablet Restasis [facility] [address]-28 0.05 % Ophthalmic Twice a day Active 1 into affected eye Aspirin EC [facility] [address]-61 81 MG Orally Once a day Active 1 tablet Advair Diskus [facility] [address]-88 250-50 MCG/DOSE Inhalation Twice a day Active 1 puff Levalbuterol HCl [facility] [address]-40 daily Active 0.5 ml ZyrTEC Unknown 0 10 mg Orally Once a day Active 1 tablet Magnesium [facility] 36882-02416 500 MG Orally Once a day Active 1 tablet with a meal Caltrate 600+D Plus [facility] [address]-13 600-800 MG-UNIT Orally Twice a day Active 1 tablet Metoprolol Tartrate [facility] [address]-53 25 MG Orally Twice a day Active 1 tablet Multivitamins [facility] [address]-91 100 mg Orally daily Active as directed Social History Social History Element Qualifiers Date Reported 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 Status , Is czech your primary language? Yes Aug 01, 2016 [...]
--- OUTSIDE RECORDS SUMMARY | 2018-06-18 05:52 | XMS REPORT ---
Author Author Alyson Manuel [facility] eClinicalWorks Address Unknown Phone Unavailable Care Team Providers Care Spring Fitter Helper Name Role Phone Alyson Manuel CP Unavailable Allergies, Adverse Reactions, Alerts Substance Reaction Event Type Codeine Sulfate vomiting Drug Allergy Encounters Encounter Location Date RESULTS [facility] Mar 18, 2013 CONGESTION/SINUS [facility] Apr 30, 2014 1 day follow up [facility] May 01, 2014 follow up on breathing [facility] May 07, 2014 Other [facility] Mar 11, 2013 Test results [facility] Mar 12, 2013 PHYSICAL [facility] Mar 05, 2013 ABD US/MCF [facility] Jul 15, 2014 follow up on venous doppler [facility] Mar 24, 2016 Problems with leg [facility] Mar 23, 2016 physical exam and fbw [facility] Jun 25, 2014 CAROTID US/MFC [facility] Jul 15, 2014 ABRASION ON ARM THAT DOESN'T SEEM TO BE HEALING [facility] Feb 11, 2015 immune disease [facility] Aug 12, 2015 Unknown [facility] November 28, 2014 copd [facility] December 03, 2014 ECHO RESULTS [facility] Aug 04, 2014 3 MONTH FOLLOW UP [facility] November 04, 2014 ECHO/MCF [facility] Jul 21, 2014 Other [facility] Jul 30, 2014 Needs referral [facility] [...] Active Problem Aortic aneurysm I71.9 Active Assessment Osteoarthritis, knee M17.9 Active Assessment Sciatica M54.30 Active Problem Rheumatoid arthritis M06.9 Active Problem Esophageal reflux K21.9 Active Medications Medication Code System Code Instructions Start Date End Date Status Dosage Caltrate 600+D Plus [facility] [address]-84 600-800 MG-UNIT Orally Twice a day Active 1 tablet Symbicort [facility] [address]-52 160-4.5 MCG/ACT Inhalation Twice a day/ PRN Active 2 puffs ZyrTEC Unknown 0 10 mg Orally Once a day Active 1 tablet Fish Oil [facility] [address]-55 1000 mg Orally Once a day Active 1 capsule Lasix [facility] [address]-58 40 MG Orally Once a day Active 1 tablet potassium Unknown 0 Oral Active 1 tab CoQ-10 [facility] 66318-93021 200 MG Orally Once a day Active 1 capsule with a meal Align [facility] 41724-26507 Orally Active Unknown Lipitor [facility] [address]-32 20 MG Orally Once a day Active 1 tablet Multivitamins [facility] [address]-80 100 mg Orally daily Active as directed Levalbuterol HCl [facility] [address]-84 daily Active 0.5 ml Metoprolol Tartrate [facility] [address]-59 25 MG Orally Twice a day Active 1 tablet Colace [facility] [address]-51 50 MG Orally Once a day Active 1 capsule as needed Norel AD [facility] 95651-942-62 4-10-325 MG Orally every 4-6 hours Jun 02, 2015 Active 1 tablet as needed Prilosec [facility] [address]-58 40 MG Orally Once a day Active 1 capsule Ipratropium-Albuterol [facility] [address]-22 Active Unknown Aspirin EC [facility] [address]-34 81 MG Orally Once a day Active 1 tablet Medrol (Jose) Unknown 0 4 mg Orally as directed Mar 24, 2016 Mar 31, 2016 Active as directed Restasis [facility] [address]-18 0.05 % Ophthalmic Twice a day Active 1 into affected eye Voltaren [facility] [address]-81 1 % Transdermal every 4 hours to right knee Mar 23, 2016 September 19, 2016 Active as directed Lexapro [facility] [address]-11 10 mg Orally Once a day Active 1 tablet Spiriva HandiHaler [facility] [address]-34 18 MCG Inhalation Once a day Active 1 capsule Tramadol HCl [facility] [address]-71 50 mg Orally every 6 hrs prn pain Mar 24, 2016 Apr 23, 2016 Active as directed Advair Diskus [facility] [address]-93 Active Unknown Social History Social History Element Qualifiers Date Reported 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 Status , Is syrian your primary language? Yes Mar 24, 2016 [...] Mar 24, 2016 Vital Signs Date/Time: Mar 24, 2016 Weight 165 lbs Height 63 in Cardiac Monitoring Heart Rate 73 /min Blood Pressure Diastolic 60 mm Hg Blood Pressure Systolic 124 mm Hg Results Lumbar AP/LAT Xray Summary Purpose eClinicalWorks Submission
--- OUTSIDE RECORDS SUMMARY | 2018-06-18 05:52 | XMS REPORT | Summary of Care ---
Author Organization Unknown Address Unknown Phone Unavailable Encounter [facility]tr_aliodessa(DALY) [id number] Date(s): 06/23/14 - 06/23/14 [facility] [address] Discharge Disposition: Home Physician Attending: Alyson Lenz DO Physician_Referring: Alyson Lenz DO Reason for Visit ROUTINE Problem List No data available for this section Allergies, Adverse Reactions, Alerts Substance Reaction Severity Status NKDA Active Medications No data available for this section Medications Administered During Your Visit No data available for this section Immunizations No data available for this section Social History Social History Type Response
--- OUTSIDE RECORDS SUMMARY | 2018-06-18 05:52 | XMS REPORT ---
Author Author Alyson Manuel Organization eClinicalWorks Address Unknown Phone Unavailable Care Team Providers Care Sawmill Manager Name Role Phone Alyson Manuel Unavailable Encounters Encounter Location Date RESULTS [facility] [...] Jul 15, 2014 physical exam and fbw [facility] December 03, 2014 ECHO RESULTS [facility] Aug 04, 2014 3 MONTH FOLLOW UP [facility] [...] Active Problem Vitamin D deficiency E55.9 Active Assessment Rheumatoid arthritis M06.9 Active Problem Esophageal reflux K21.9 Active Problem Carotid artery disease I77.9 Active Problem Systolic murmur I38 Active Problem Osteopenia M85.80 Active Problem History of abdominal aortic aneurysm V12.59 Active Problem History of repair of aneurysm of abdominal aorta V45.89 Active Problem H/O aortic valve replacement V43.3 Active Problem Aortic aneurysm I71.9 Active Social History Social History Element Qualifiers Date Reported 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 Status , Is turkish your primary language? Yes Aug 12, 2015 [...] Wine, How often? Socially Aug 12, 2015 Summary Purpose eClinicalWorks Submission
--- OUTSIDE RECORDS SUMMARY | 2018-06-18 05:53 | XMS REPORT | Summary of Care ---
Author Organization Unknown Address Unknown Phone Unavailable Encounter [facility] [place](FIN) [id number] Date(s): 11/25/14 - 11/25/14 [facility] [address] [place] [address]- Discharge Disposition: Home Physician Attending: Papi Dior MD Vital Signs No data available for this section Problem List Condition Effective Dates Status Health Status Informant 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 obstructive pulmonary disease(Confirmed) Hypertension(Confirm Resolved ed) Allergies, Adverse Reactions, Alerts Substance Reaction Severity Status codeine Active Medications No data available for this section Results ELECTROLYTES Most recent to 1 oldest [Reference Range]: Sodium Lvl [135-145 138 mEq/L mEq/L] (11/25/14 4:52 PM) Potassium Lvl 4.1 mEq/L [3.5-5.1 mEq/L] (11/25/14 4:52 PM) Chloride Lvl [95-109 98 mEq/L mEq/L] (11/25/14 4:52 PM) CO2 [24-32 mEq/L] 35 mEq/L *HI* (11/25/14 4:52 PM) AGAP [10.0-20.0 9.1 mEq/L mEq/L] *LOW* (11/25/14 4:52 PM) CHEM PANEL Most recent to 1 oldest [Reference Range]: Creatinine Lvl 1.0 mg/dL [0.5-1.4 mg/dL] (11/25/14 4:52 PM) eGFR 54 mL/min/1.73m2 1 *NA* (11/25/14 4:52 PM) BUN [7-22 mg/dL] 24 mg/dL *HI* (11/25/14 4:52 PM) Glucose Lvl [70-99 138 mg/dL 2 mg/dL] *HI* (11/25/14 4:52 PM) Calcium Lvl 9.4 mg/dL [8.5-10.5 mg/dL] (11/25/14 4:52 PM) 1Result Comment: The eGFR is calculated using [...] from the National Kidney Disease Education Program ( NKDEP) which additionally recommends that when the eGFR is used in patients with extremes of body mass index for purposes of drug dosing, the eGFR should be mul tiplied by the estimated BMI. 2Interpretive Data: Adult reference range values reflect the clinical guidelines of the [place] [employer]. CARDIAC ENZYMES Most recent to 1 oldest [Reference Range]: BNP [<=100 pg/mL] 109 pg/mL 3 *HI* (11/25/14 4:52 PM) 3Interpretive Data: Elevated results are in line with increasing severity of congestive heart failure. Minor elevations between 100 and 300 may be seen with Myocardial Ischemia, Sodium retaining drugs, and compensated/treated heart failure. Immunizations No data available for this section [...]
--- OUTSIDE RECORDS SUMMARY | 2018-06-18 05:53 | XMS REPORT | Summary of Care ---
Author Author [facility] Organization [facility] Address Unknown Phone Unavailable Encounter HQ Nadiyar_eugenie(FIN) [id number] Date(s): 03/23/16 - 03/23/16 [facility] [address] [place] [address]- Discharge Disposition: Home or Self Care Attending Physician: Alyson Lenz DO Referring Physician: Alyson Lenz DO Vital Signs No data available for this [...]
--- OUTSIDE RECORDS SUMMARY | 2018-06-18 05:53 | XMS REPORT | Summary of Care ---
Author Author [facility] Organization [facility] Address Unknown Phone Unavailable Encounter YANIRA Burns(DALY) [id number] Date(s): 07/04/17 - 07/06/17 [facility] [address] [place] [address]- S [phone] Discharge Disposition: Home or Self Care Attending Physician: Ani Myers MD Admitting Physician: Ani Myers MD Vital Signs 1 2 3 Most recent to oldest [Reference Range]: 160.02 cm (07/04/17 6:20 PM) 160.02 cm (07/04/17 10:45 AM) Height 97.9 DegF (07/06/17 12:33 PM) 97.3 DegF (07/06/17 7:41 AM) 98.1 DegF (07/06/17 3:12 AM) Temperature Oral [96.4-99.1 DegF] 105/61 mmHg (07/06/17 12:33 PM) 108/63 mmHg (07/06/17 7:41 AM) 123/65 mmHg (07/06/17 3:12 AM) Blood Pressure [90-140/60-90 mmHg] 20 BRMIN (07/06/17 12:33 PM) 20 BRMIN (07/06/17 8:58 AM) 20 BRMIN (07/06/17 7:41 AM) Respiratory Rate [14-20 BRMIN] 80 bpm (07/06/17 12:33 PM) 72 bpm (07/06/17 7:41 AM) 102 bpm *HI* (07/06/17 3:12 AM) Peripheral Pulse Rate [60-100 bpm] 76.534 kg (07/04/17 6:20 PM) 77 kg (07/04/17 10:45 AM) Weight 29.89 m2 (07/04/17 6:20 PM) 30.07 m2 (07/04/17 10:45 AM) Body Mass Index Problem List Condition Effective Dates Status Health Status Informant 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 obstructive pulmonary disease(Confirmed) Deviated Resolved septum(Confirmed) Hypertension(Confirm Resolved ed) RA (rheumatoid Resolved arthritis)(Confirmed ) Allergies, Adverse Reactions, Alerts Substance Reaction Severity Status codeine Active Medications Cipro 500 mg, 1 tab, Route: PO, Drug form: TAB, [id number], Start date: 07/06/17 16:00:00 VENEER JOINER, Duration: 3 day, Stop date: 07/09/17 4:00:00 VENEER JOINER, ABX Indication: Intra-ab dominal Infection Notes: May interfere w/enteral feedings - Take 1 hr before or 2 hrs after anta cids, dairy pdt & minerals. On empty stomach. Start Date: 07/06/17 Stop Date: 07/06/17 Status: Discontinued Cipro 400 mg, 200 mL, Route: IVPB, Drug form: INJ, [id number], Dosing Weight 77, kg, Star t date: 07/05/17 3:00:00 VENEER JOINER, Duration: 5 day, Stop date: 07/09/17 15:00:00 VENEER JOINER, ABX Indication: Intra-abdominal Infection Notes: Do not refrigerate Start Date: 07/05/17 Stop Date: 07/06/17 Status: Discontinued Cipro 500 mg oral tablet 500 mg=1 tab, PO, Q12H, X 7 day, # 14 tab, 0 Refill(s), Pharmacy: [facility]/pharmacy # [id number] Start Date: 07/06/17 Stop Date: 07/13/17 Status: Ordered ciprofloxacin 400 mg, 200 mL, Route: IVPB, Drug form: INJ, ONCE, Dosing Weight 77, kg, Priorit y: STAT, Start date: 07/04/17 13:50:00 VENEER JOINER, Stop date: 07/04/17 13:50:00 VENEER JOINER, AB X Indication: Bacteremia Notes: Do not refrigerate Start Date: 07/04/17 Stop Date: 07/04/17 Status: Completed escitalopram 10 mg, 1 tab, Route: PO, Drug form: TAB, Daily, Dosing Weight 76.534, kg, Start date: 07/05/17 9:00:00 VENEER JOINER, Duration: 30 day, Stop date: 08/03/17 9:00:00 VENEER JOINER Notes: (Same as: Lexapro) Start Date: 07/05/17 Stop Date: 07/06/17 Status: Discontinued Flagyl 500 mg, 100 mL, Route: IVPB, Drug form: INJ, ABXQ8H, Dosing Weight 77, kg, Start date: 07/04/17 22:00:00 VENEER JOINER, Duration: 5 day, Stop date: 07/09/17 14:00:00 VENEER JOINER, ABX Indication: Intra-abdominal Infection Notes: (Same as: Flagyl) Avoid alcohol. Start Date: 07/04/17 Stop Date: 07/06/17 Status: Discontinued Flagyl 500 mg, 1 tab, Route: PO, Drug form: TAB, ONCE, Dosing Weight 77, kg, Priority: STAT, Start date: 07/04/17 13:50:00 VENEER JOINER, Stop date: 07/04/17 13:50:00 VENEER JOINER, ABX I ndication: Bacteremia Notes: (Same as: Flagyl) Take with food/ avoid alcohol Start Date: 07/04/17 Stop Date: 07/04/17 Status: Completed Flagyl 500 mg, 1 tab, Route: PO, Drug form: TAB, ABXQ8H, Start date: 07/06/17 16:00:00 VENEER JOINER, Duration: 2 day, Stop date: 07/08/17 8:00:00 VENEER JOINER, ABX Indication: Intra-abd ominal Infection Notes: (Same as: Flagyl) Take with food/ avoid alcohol Start Date: 07/06/17 Stop Date: 07/06/17 Status: Discontinued Flagyl 500 mg oral tablet 500 mg=1 tab, PO, Q8H, X 7 day, # 21 tab, 0 Refill(s), Pharmacy: [facility]/pharmacy #[id number] Start Date: 07/06/17 Stop Date: 07/13/17 Status: Ordered Lipitor 20 mg, 2 tab, Route: PO, Drug form: TAB, Bedtime, Dosing Weight 76.534, kg, Star t date: 07/04/17 21:00:00 VENEER JOINER, Duration: 30 day, Stop date: 08/02/17 21:00:00 CS T Notes: (Same As: Lipitor) Start Date: 07/04/17 Stop Date: 07/06/17 Status: Discontinued melatonin 3 mg oral tablet 3 mg, 1 tab, Route: PO, Drug Form: TAB, Dosing Weight 76.534, kg, Bedtime, PRN S leep, Start date: 07/04/17 20:03:00 VENEER JOINER, Duration: 30 day, Stop date: 08/03/17 2 0:02:00 VENEER JOINER Notes: (Same as: Melatonin) Start Date: 07/04/17 Stop Date: 07/06/17 Status: Discontinued metoprolol extended release 25 mg, 1 tab, Route: PO, Drug form: ERTAB, Daily, Start date: 07/05/17 9:00:[address], Duration: 30 day, Stop date: 08/03/17 9:00:00 VENEER JOINER Notes: (Same as: Toprol XL) Do Not Crush Start Date: 07/05/17 Stop Date: 07/06/17 Status: Discontinued morphine Sulfate 2 mg, 2 mL, Route: IVP, Drug form: SOLN, Q4H, Dosing Weight 77, kg, PRN Pain Sco re 7-10, Start date: 07/04/17 16:15:00 VENEER JOINER, Duration: 30 day, Stop date: 8 16:14:00 VENEER JOINER Notes: Preservative free. (Same as: Morphine Sulfate-PF) Start Date: 07/04/17 Stop Date: 07/06/17 Status: Discontinued normal saline 0.9% IV 1,000 mL 1,000 mL, Rate: 100 ml/hr, Infuse over: 10 hr, Route: IV, Dosing Weight 76.534 k g, Total Volume: 1,000, Start date: 07/04/17 18:27:00 VENEER JOINER, Duration: 30 day, Sto p date: 08/03/17 18:26:00 VENEER JOINER, 1.87, m2 Start Date: 07/04/17 Stop Date: 07/06/17 Status: Discontinued ondansetron 4 mg, 2 mL, Route: IVP, Drug form: INJ, Q6H, Dosing Weight 77, kg, PRN Nausea & Vomiting, Start date: 07/04/17 16:15:00 VENEER JOINER, Duration: 30 day, Stop date: 08/03 16:14:00 VENEER JOINER Notes: (Same as: Zofran) MEDICATION WASTE Product Size: 4 mgProduct Was enedina: ___ mg Start Date: 07/04/17 Stop Date: 07/06/17 Status: Discontinued Phenergan 12.5 mg, 1 tab, Route: PO, Drug form: TAB, Q6H, Dosing Weight 76.534, kg, PRN Na usea & Vomiting, Start date: 07/05/17 14:16:00 VENEER JOINER, Duration: 30 day, Stop date: 08/04/17 14:15:00 VENEER JOINER Notes: (Same as: Phenergan) Start Date: 07/05/17 Stop Date: 07/06/17 Status: Discontinued Saline Flush 0.9% 10 mL, Route: IVP, Drug Form: INJ, Dosing Weight 75, kg, PRN, PRN Line Flush, St art date: 07/04/17 10:45:00 VENEER JOINER, Duration: 30 day, Stop date: 08/03/17 10:44:00 VENEER JOINER Notes: (Same as: BD Posiflush) Start Date: 07/04/17 Stop Date: 07/06/17 Status: Discontinued Xarelto 20 mg, 2 tab, Route: PO, Drug form: TAB, QPM, Dosing Weight 76.534, kg, Start da te: 07/04/17 21:00:00 VENEER JOINER, Stop date: 08/03/17 17:00:00 VENEER JOINER Notes: (Same as: Xarelto)Do Not Crush Start Date: 07/04/17 Stop Date: 07/06/17 Status: Discontinued Results ELECTROLYTES 1 2 3 Most recent to oldest [Reference Range]: 138 mEq/L (07/06/17 3:50 AM) 136 mEq/L (07/05/17 3:29 AM) 135 mEq/L (07/04/17 11:23 AM) Sodium Lvl [135-145 mEq/L] 4.4 mEq/L (07/06/17 3:50 AM) 4.0 mEq/L (07/05/17 3:29 AM) 4.0 mEq/L (07/04/17 11:23 AM) Potassium Lvl [3.5-5.1 mEq/L] 104 mEq/L (07/06/17 3:50 AM) 103 mEq/L (07/05/17 3:29 AM) 102 mEq/L (07/04/17 11:23 AM) Chloride Lvl [95-109 mEq/L] 27 mEq/L (07/06/17 3:50 AM) 28 mEq/L (07/05/17 3:29 AM) 28 mEq/L (07/04/17 11:23 AM) CO2 [24-32 mEq/L] 11.4 mEq/L (07/06/17 3:50 AM) 9.0 mEq/L *LOW* (07/05/17 3:29 AM) 9.0 mEq/L *LOW* (07/04/17 11:23 AM) AGAP [10.0-20.0 mEq/L] CHEM PANEL 1 2 3 Most recent to oldest [Reference Range]: 0.66 mg/dL (07/06/17 3:50 AM) 0.56 mg/dL (07/05/17 3:29 AM) 0.71 mg/dL (07/04/17 11:23 AM) Creatinine Lvl [0.50-1.40 mg/dL] 83 mL/min/1.73m2 1 *NA* (07/06/17 3:50 AM) 88 mL/min/1.73m2 2 *NA* (07/05/17 3:29 AM) 80 mL/min/1.73m2 3 *NA* (07/04/17 11:23 AM) eGFR 7 mg/dL (07/06/17 3:50 AM) 10 mg/dL (07/05/17 3:29 AM) 12 mg/dL (07/04/17 11:23 AM) BUN [7-22 mg/dL] 18 (07/05/17 3:29 AM) 17 (07/04/17 11:23 AM) B/C Ratio [6-25] 113 mg/dL *HI* (07/06/17 3:50 AM) 126 mg/dL *HI* (07/05/17 3:29 AM) 108 mg/dL *HI* (07/04/17 11:23 AM) Glucose Lvl [70-99 mg/dL] 6.4 g/dL (07/05/17 3:29 AM) 7.3 g/dL (07/04/17 11:23 AM) Total Protein [6.4-8.4 g/dL] 2.6 g/dL *LOW* (07/05/17 3:29 AM) 2.9 g/dL *LOW* (07/04/17 11:23 AM) Albumin Lvl [3.5-5.0 g/dL] 3.8 g/dL (07/05/17 3:29 AM) 4.4 g/dL *HI* (07/04/17 11:23 AM) Globulin [2.7-4.2 g/dL] 0.7 (07/05/17 3:29 AM) 0.7 (07/04/17 11:23 AM) A/G Ratio [0.7-1.6] 8.8 mg/dL (07/06/17 3:50 AM) 9.0 mg/dL (07/05/17 3:29 AM) 9.3 mg/dL (07/04/17 11:23 AM) Calcium Lvl [8.5-10.5 mg/dL] 2.8 mg/dL (07/05/17 3:29 AM) Phosphorus [2.5-4.5 mg/dL] 2.0 mg/dL (07/05/17 3:29 AM) Magnesium Lvl [1.8-2.4 mg/dL] 13 unit/L (07/05/17 3:29 AM) 13 unit/L (07/04/17 11:23 AM) ALT [0-65 unit/L] 16 unit/L (07/05/17 3:29 AM) 14 unit/L (07/04/17 11:23 AM) AST [0-37 unit/L] 58 unit/L (07/05/17 3:29 AM) 68 unit/L (07/04/17 11:23 AM) Alk Phos [39-136 unit/L] 0.4 mg/dL (07/05/17 3:29 AM) 0.3 mg/dL (07/04/17 11:23 AM) Bili Total [0.2-1.3 mg/dL] 211 unit/L (07/04/17 11:23 AM) Lipase Lvl [73-393 unit/L] 1Result Comment: The eGFR is calculated using [...] be mul tiplied by the estimated BMI. 2Result Comment: The eGFR is calculated using the [...] be mul tiplied by the estimated BMI. 3Result Comment: The eGFR is calculated using the [...] be mul tiplied by the estimated BMI. HEMATOLOGY 1 2 3 Most recent to oldest [Reference Range]: 6.7 K/CMM (07/06/17 3:50 AM) 6.3 K/CMM (07/05/17 3:29 AM) 9.4 K/CMM (07/04/17 11:23 AM) WBC [3.7-10.4 K/CMM] 3.59 M/CMM *LOW* (07/06/17 3:50 AM) 3.69 M/CMM *LOW* (07/05/17 3:29 AM) 4.20 M/CMM (07/04/17 11:23 AM) RBC [4.20-5.40 M/CMM] 11.6 g/dL *LOW* (07/06/17 3:50 AM) 11.9 g/dL *LOW* (07/05/17 3:29 AM) 13.4 g/dL (07/04/17 11:23 AM) Hgb [12.0-16.0 g/dL] 34.1 % *LOW* (07/06/17 3:50 AM) 35.4 % *LOW* (07/05/17 3:29 AM) 40.1 % (07/04/17 11:23 AM) Hct [36.0-48.0 %] 95.0 fL (07/06/17 3:50 AM) 95.9 fL (07/05/17 3:29 AM) 95.5 fL (07/04/17 11:23 AM) MCV [80.0-98.0 fL] 32.3 pg *HI* (07/06/17 3:50 AM) 32.3 pg *HI* (07/05/17 3:29 AM) 31.9 pg *HI* (07/04/17 11:23 AM) MCH [27.0-31.0 pg] 34.0 g/dL (07/06/17 3:50 AM) 33.6 g/dL (07/05/17 3:29 AM) 33.4 g/dL (07/04/17 11:23 AM) MCHC [32.0-36.0 g/dL] 13.4 % (07/06/17 3:50 AM) 13.4 % (07/05/17 3:29 AM) 13.7 % (07/04/17 11:23 AM) RDW [11.5-14.5 %] 227 K/CMM (07/06/17 3:50 AM) 222 K/CMM (07/05/17 3:29 AM) 217 K/CMM (07/04/17 11:23 AM) Platelet [133-450 K/CMM] 8.1 fL (07/06/17 3:50 AM) 8.5 fL (07/05/17 3:29 AM) 7.9 fL (07/04/17 11:23 AM) MPV [7.4-10.4 fL] 78.8 % *HI* (07/06/17 3:50 AM) 62.6 % (07/05/17 3:29 AM) 67.9 % (07/04/17 11:23 AM) Segs [45.0-75.0 %] 9.3 % *LOW* (07/06/17 3:50 AM) 21.2 % (07/05/17 3:29 AM) 18.7 % *LOW* (07/04/17 11:23 AM) Lymphocytes [20.0-40.0 %] 6.6 % (07/06/17 3:50 AM) 8.5 % (07/05/17 3:29 AM) 9.1 % (07/04/17 11:23 AM) Monocytes [2.0-12.0 %] 4.7 % *HI* (07/06/17 3:50 AM) 6.8 % *HI* (07/05/17 3:29 AM) 3.6 % (07/04/17 11:23 AM) Eosinophils [0.0-4.0 %] 0.6 % (07/06/17 3:50 AM) 0.9 % (07/05/17 3:29 AM) 0.7 % (07/04/17 11:23 AM) Basophils [0.0-1.0 %] 5.3 K/CMM (07/06/17 3:50 AM) 3.9 K/CMM (07/05/17 3:29 AM) 6.4 K/CMM (07/04/17 11:23 AM) Segs-Bands # [1.5-8.1 K/CMM] 0.6 K/CMM *LOW* (07/06/17 3:50 AM) 1.3 K/CMM (07/05/17 3:29 AM) 1.8 K/CMM (07/04/17 11:23 AM) Lymphocytes # [1.0-5.5 K/CMM] 0.4 K/CMM (07/06/17 3:50 AM) 0.5 K/CMM (07/05/17 3:29 AM) 0.9 K/CMM *HI* (07/04/17 11:23 AM) Monocytes # [0.0-0.8 K/CMM] 0.3 K/CMM (07/06/17 3:50 AM) 0.4 K/CMM (07/05/17 3:29 AM) 0.3 K/CMM (07/04/17 11:23 AM) Eosinophils # [0.0-0.5 K/CMM] 0.1 K/CMM (07/05/17 3:29 AM) 0.1 K/CMM (07/04/17 11:23 AM) Basophils # [0.0-0.2 K/CMM] Immunizations Given and Recorded Vaccine Date Status Refusal Reason pneumococcal 13-valent vaccine 04/16/16 Given Not Given Vaccine Date Status Refusal Reason pneumococcal 23-valent vaccine 04/30/17 Not Given Patient Refuses Procedures Procedure Date Related Diagnosis Body Site Cataract extraction Hysterectomy Operation Operation Social History Social History Type Response Substance Abuse Use: None. Sexual Sexually active: No. Exercise Exercise duration: 0. Alcohol Current, Type Wine. Frequency: 1-2 times per week. Previous treatment: None. Smoking Status Former smoker; Exposure to Tobacco Smoke None; Cigarette Smoking Last 365 Days No; Reg Smoking Cessation Counseling No; Stopped at age: 76; Assessment and Plan Extracted from: Title: UIP Hospitalist Discharge Author: Ani Myers MD Date: 07/06/17 Summary [facility] Providers Hospitalist Discharge Summary Code Status: Full Code [Ordered] Admission Date: 07/04/2017 Discharge Date: 07/06/2017 Discharge Diagnosis: 1. Acute diverticulitis 2. Gastroenteritis Discharge Condition: fair Hospital Course: 82 year old F with a hx of COPDon home O2 presented with LLQ pain, nausea, and vomiting. Imaging concerning for diverticulitis. She was started on IV cipro and flagyl. She started having some watery diarrhea likely 2/2 gastroenteritis vs medication effect. No recent use of abx or sick contacts. Today, patient states that her pain is much improved and is tolerating regular diet. She has tenderness if I press on her abdomen, but otherwise denies pain. Agreeable to discharge. Physical Exam: General: Awake, alert, oriented x 3, NAD HEENT: PERRLA, EOMI. MMM and intact without erythema. No conjunctival injection. No scleral icterus. Heart: RRR, normal S1, S2. No murmurs, rubs, gallops Lungs: Clear to auscultation bilaterally. Symmetric chest wall expansion. Abdomen: mild tenderness to deep palpation in LLQ Discharge Instructions: Notify your physician if: Signs of Infection Discharge Activity: Activity: No restrictions Discharge Diet: Diet: Regular Diet Discharge Medications: Refer to EMR for full list of medications Discharge Follow up: Follow Up With: GI doctor Follow Up When: 4 Weeks Reason for Follow Up: As Needed Time spent on discharge planning: > 30 minutes Ani Myers MD Hospitalist [facility] Extracted from: Title: UIP Hospitalist Progress Author: Ani Myers MD Date: 07/05/17 Note [facility] Hospitalist Progress Note Code Status: Full Code [Ordered] Chief Complaint: abdominal pain Subjective: Pain has improved. Having some loose stools this morning Objective: Vitals and Temp: VitalsTmp(F)[id number] 07/05 04:[id number]--- 07/04 23:[id number]/555567--- 07/04 19:[id number]--- 07/04 17:4598.833445/062308 3.0L/m 07/04 14:[id number]/765146 3.0L/m 24 Hr Tmax: 98.7F (37.06c) at 07/04 17:45Vital Signs are the last 5 in the past 48 hours. Physical Exam General: Awake, alert, oriented x 3, NAD Heart: RRR, normal S1, S2. No murmurs, rubs, gallops Lungs: Clear to auscultation bilaterally. Symmetric chest wall expansion. Abdomen: Mild TTP to LLQ Lines, Tubes, and Drains: 07/04/2017 11:24 Peripheral Lines: Hand Left 20 gauge Over the needle catheter I&ORecordInOutBal 4hr Tot 400 0 400 4hr Tot 0 0 0 I/O Intake OutputBalance 07/04/20177a-3p 0.00 0.00 0.00 3p-11p 100.00 0.00 100.00 11p-7a 300.00 0.00 300.00 Totals 400.00 0.00 400.00 07/03/20177a-3p 0.00 0.00 0.00 3p-11p 0.00 0.00 0.00 11p-7a 0.00 0.00 0.00 Totals 0.00 0.00 0.00 Medications (13) Active Scheduled Meds (6): 07/04/17 atorvastatin (Lipitor) 20 mg PO Bedtime 07/05/17 ciprofloxacin (Cipro) 400 mg IVPB [id number] 200 ml/hr 07/05/17 escitalopram 10 mg PO Daily 07/05/17 metoprolol (metoprolol extended release) 25 mg PO Daily 07/04/17 metroNIDAZOLE (Flagyl) 500 mg IVPB [id number] 200 ml/hr 07/04/17 rivaroxaban (Xarelto) 20 mg PO QPM Unscheduled Meds: None PRN Meds (4): 07/04/17 melatonin (melatonin 3 mg oral tablet) 3 mg PO Bedtime 07/04/17 morphine Sulfate 2 mg IVP Q4H 07/04/17 ondansetron 4 mg IVP Q6H 07/04/17 sodium chloride (Saline Flush 0.9%) 10 mL IVP PRN One Time Meds (2): 07/04/17 (Completed) ciprofloxacin 400 mg IVPB ONCE 200 ml/hr 07/04/17 (Completed) metroNIDAZOLE (Flagyl) 500 mg PO ONCE Continuous Infusions (1): 07/04/17 Sodium Chloride 0.9% IV 1,000 mL (normal saline 0.9% IV 1,000 mL) 1,000 mL 100 ml/hr Labs: Hct: 35.4 % Low (07/05/17 04:29:04) Hgb: 11.9 g/dL Low (07/05/17 04:29:04) MCH: 32.3 pg High (07/05/17 04:29:04) MCHC: 33.6 g/dL (07/05/17 04:29:04) MCV: 95.9 fL (07/05/17 04:29:04) MPV: 8.5 fL (07/05/17 04:29:04) Platelet: 222 K/CMM (07/05/17 04:29:04) RBC: 3.69 M/CMM Low (07/05/17 04:29:04) RDW: 13.4 % (07/05/17 04:29:04) WBC: 6.3 K/CMM (07/05/17 04:29:04) CO2: 28 mEq/L (07/05/17 04:45:26) Chloride Lvl: 103 mEq/L (07/05/17 04:45:26) Sodium Lvl: 136 mEq/L (07/05/17 04:45:26) Glucose Lvl: 126 mg/dL High (07/05/17 04:45:26) Calcium Lvl: 9 mg/dL (07/05/17 04:45:26) Potassium Lvl: 4 mEq/L (07/05/17 04:45:26) BUN: 10 mg/dL (07/05/17 04:45:26) AGAP: 9 mEq/L Low (07/05/17 04:45:26) Creatinine Lvl: 0.56 mg/dL (07/05/17 04:45:26) Imaging: Reviewed Assessment/Plan: 1. Acute diverticulitis 2. Recent PE 3. COPD Plan: -continue IV cipro/flagyl -IV fluids -advance to CLD this morning -Xarelto -home medications Prophylaxis: Xarelto Disposition: 1-2 MN Ani Myers MD Hospitalist [facility] Extracted from: Title: UIP Hospitalist Admission Author: Ani Myers MD Date: 07/04/17 H&P [facility] Hospitalist Admission History & Physical Code Status: Full Code [Ordered] Chief Complaint: abdominal pain History of Present Illness: 82 year old F with a hx of COPD on home O2, PE who presented with abdominal pain since Sunday. Last meal was this morning, she had a cup of yogurt. Denies fevers, chills, nausea, vomiting, and diarrhea. No blood in stool. CT shows evidence of diverticulitis. Abdominal painmainly in LLQ area. She denies chest pain and shortness of breath. Last colonoscopy was in 2013 and was normal. Review of Systems: as mentioned in HPI Past Medical History: Hypertension COPD - Chronic obstructive pulmonary disease Aortic valve disorder RA (rheumatoid arthritis) Past Surgical History: Hysterectomy Cataract extraction Operation Operation Family History: Mother: Heart attack; Heart disease; Heart failure; High blood pressure Sister: Breast cancer Social History: Alcohol Details: Past, Previous treatment: None. Tobacco Details: Use: Former smoker. Tobacco smoke exposure: None. Did the Patient Smoke Cigarettes Anytime During the Last 365 Days? No. Cessation Counseling Provided? No. Medications: Medications (7) Active Scheduled Meds (2): 07/05/17 ciprofloxacin (Cipro) 400 mg IVPB [id number] 200 ml/hr 07/04/17 metroNIDAZOLE (Flagyl) 500 mg IVPB ABXQ8H 200 ml/hr Unscheduled Meds: None PRN Meds (3): 07/04/17 morphine Sulfate 2 mg IVP Q4H 07/04/17 ondansetron 4 mg IVP Q6H 07/04/17 sodium chloride (Saline Flush 0.9%) 10 mL IVP PRN One Time Meds (2): 07/04/17 (Completed) ciprofloxacin 400 mg IVPB ONCE 200 ml/hr 07/04/17 (Completed) metroNIDAZOLE (Flagyl) 500 mg PO ONCE Continuous Infusions: None Allergies (1) ActiveReaction codeineNone documented Allergies: Physical Exam: VitalsTmp(F)[id number] 07/04 10:[id number]--- 24 Hr Tmax: 98.2F (36.78c) at 07/04 10:45Vital Signs are the last 5 in the past 48 hours. General: Awake, alert, oriented x 3, NAD HEENT: PERRLA, EOMI. MMM and intact without erythema. No conjunctival injection. No scleral icterus. Neck: Supple, full ROM Heart: RRR, normal S1, S2. No murmurs, rubs, gallops Lungs: Clear to auscultation bilaterally. Symmetric chest wall expansion. Abdomen: LLQ tenderness to palpation. No guarding. Bowel sound present in all 4 quadrants. MSK: 5/5 strength in upper and lower extremities bilaterally. No peripheral edema. Skin: No rashes or lesions. No petechiae or bruising noted. Neuro: 5/5 muscle strength in all 4 extremities. CN II-XII grossly intact. Normal gait. Psych: Appropriate mood and affect. Lines, Tubes, and Drains: 07/04/2017 11:24 Peripheral Lines: Hand Left 20 gauge Over the needle catheter Labs: Hct: 40.1 % (07/04/17 11:33:42) Hgb: 13.4 g/dL (07/04/17 11:33:42) MCH: 31.9 pg High (07/04/17 11:33:42) MCHC: 33.4 g/dL (07/04/17 11:33:42) MCV: 95.5 fL (07/04/17 11:33:42) MPV: 7.9 fL (07/04/17 11:33:42) Platelet: 217 K/CMM (07/04/17 11:33:42) RBC: 4.2 M/CMM (07/04/17 11:33:42) RDW: 13.7 % (07/04/17 11:33:42) WBC: 9.4 K/CMM (07/04/17 11:33:42) CO2: 28 mEq/L (07/04/17 11:55:03) Chloride Lvl: 102 mEq/L (07/04/17 11:55:03) Sodium Lvl: 135 mEq/L (07/04/17 11:55:03) Glucose Lvl: 108 mg/dL High (07/04/17 11:55:03) Calcium Lvl: 9.3 mg/dL (07/04/17 11:55:03) Potassium Lvl: 4 mEq/L (07/04/17 11:55:03) BUN: 12 mg/dL (07/04/17 11:55:03) AGAP: 9 mEq/L Low (07/04/17 11:55:03) Creatinine Lvl: 0.71 mg/dL (07/04/17 11:55:03) Imaging: Reviewed Assessment/Plan: 1. Acute diverticulitis 2. Recent PE 3. COPD Plan: -continue IV cipro/flagyl -IV fluids -NPO for now, advance diet starting tomorrow -Xarelto -home medications Prophylaxis: Xarelto Disposition: 1-2 [place] Ani Myers MD Hospitalist [place] Inpatient Providers
--- OUTSIDE RECORDS SUMMARY | 2018-06-18 05:53 | XMS REPORT | Summary of Care ---
Author Author [facility] Organization [facility] Address Unknown Phone Unavailable Encounter [facility] [place](DALY) [id number] Date(s): 04/15/16 - 04/17/16 [facility] [address] [place] [address]- Discharge Disposition: Home or Self Care Attending Physician: Chris Garcia MD Admitting Physician: Chris Garcia MD Vital Signs 1 2 3 Most recent to oldest [Reference Range]: 157.48 cm (04/15/16 5:30 PM) Height 98.1 DegF (04/17/16 5:07 PM) 97.8 DegF (04/17/16 11:55 AM) 97.5 DegF (04/17/16 8:22 AM) Temperature Oral [96.4-99.1 DegF] 111/62 mmHg (04/17/16 5:07 PM) 128/66 mmHg (04/17/16 11:55 AM) 103/58 mmHg (04/17/16 8:22 AM) Blood Pressure [90-140/60-90 mmHg] 18 BRMIN (04/17/16 5:07 PM) 16 BRMIN (04/17/16 11:55 AM) 16 BRMIN (04/17/16 8:22 AM) Respiratory Rate [14-20 BRMIN] 66 bpm (04/17/16 5:07 PM) 68 bpm (04/17/16 11:55 AM) 65 bpm (04/17/16 8:22 AM) Peripheral Pulse Rate [60-100 bpm] 74.545 kg (04/15/16 5:30 PM) Weight 30.06 m2 (04/15/16 5:30 PM) Body Mass Index Problem List Condition Effective Dates Status Health Status Informant 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 obstructive pulmonary disease(Confirmed) Hypertension(Confirm Resolved ed) Allergies, Adverse Reactions, Alerts Substance Reaction Severity Status codeine Active Medications Advair Diskus 250 mcg-50 mcg inhalation powder 1 puff, Route: INHALATION, Drug Form: AERO, Dosing Weight 67.727, kg, BID, Start date: 04/15/16 17:00:00 CDT, Duration: 30 day, Stop date: 05/15/16 9:00:00 CLINICAL TRANSPLANT COORDINATOR Start Date: 04/15/16 Stop Date: 04/15/16 Status: Deleted aspirin 325 mg tablet, enteric coated 325 mg, Route: PO, Drug form: ECTAB, Daily, Dosing Weight 67.727, kg, Start date : 04/16/16 9:00:00 CDT, Duration: 30 day, Stop date: 05/15/16 9:00:00 CLINICAL TRANSPLANT COORDINATOR Start Date: 04/16/16 Stop Date: 04/15/16 Status: Discontinued aspirin 81 mg tablet, enteric coated 81 mg, 1 tab, Route: PO, Drug form: ECTAB, Daily, Dosing Weight 67.727, kg, Star t date: 04/16/16 9:00:00 CDT, Duration: 30 day, Stop date: 05/15/16 9:00:00 CLINICAL TRANSPLANT COORDINATOR Notes: Do not crush or chew.(Same As: Ecotrin) Start Date: 04/16/16 Stop Date: 04/17/16 Status: Discontinued budesonide-formoterol 160 mcg-4.5 mcg/inh inhalation aerosol with adapter 2 inhalation, Route: INHALATION, Drug Form: AERO/A, RBID, Start date: 04/15/16 1 5:31:00 CDT, Duration: 30 day, Stop date: 05/15/16 8:00:00 CLINICAL TRANSPLANT COORDINATOR Notes: (Same as: Symbicort)WASTE: Aerosol - Return to Pharmacy Start Date: 04/15/16 Stop Date: 04/17/16 Status: Discontinued escitalopram 10 mg, 1 tab, Route: PO, Drug form: TAB, Daily, Dosing Weight 67.727, kg, Start date: 04/16/16 9:00:00 CDT, Duration: 30 day, Stop date: 05/15/16 9:00:00 CLINICAL TRANSPLANT COORDINATOR Notes: (Same as: Lexapro) Start Date: 04/16/16 Stop Date: 04/17/16 Status: Discontinued furosemide 40 mg oral tablet 40 mg, 1 tab, Route: PO, Drug form: TAB, Daily, Dosing Weight 67.727, kg, Start date: 04/16/16 9:00:00 CDT, Duration: 30 day, Stop date: 05/15/16 9:00:00 CLINICAL TRANSPLANT COORDINATOR Notes: (Same as: Lasix) May cause GI upset. Give with food or milk. Start Date: 04/16/16 Stop Date: 04/17/16 Status: Discontinued ipratropium 0.02% inhalation solution 500 microgram, 2.5 mL, Route: NEB, Drug form: SOLN, BID, Dosing Weight 67.727, k g, PRN Wheezing, Start date: 04/15/16 13:50:00 CDT, Duration: 30 day, Stop date: 05/15/16 13:49:00 CLINICAL TRANSPLANT COORDINATOR Notes: SEE RT DOCUMENTATION(Same as:Atrovent) Start Date: 04/15/16 Stop Date: 04/17/16 Status: Discontinued Lipitor 20 mg, 2 tab, Route: PO, Drug form: TAB, Bedtime, Dosing Weight 67.727, kg, Star t date: 04/15/16 21:00:00 CDT, Duration: 30 day, Stop date: 05/14/16 21:00:00 CS T Notes: (Same As: Lipitor) Start Date: 04/15/16 Stop Date: 04/17/16 Status: Discontinued magnesium oxide 400 mg, 1 tab, Route: PO, Drug form: TAB, Daily, Dosing Weight 67.727, kg, Start date: 04/16/16 9:00:00 CDT, Duration: 30 day, Stop date: 05/15/16 9:00:00 CLINICAL TRANSPLANT COORDINATOR Notes: (Same as: Mag-Ox 400)Magnesium oxide [id number] elemental magnesiumDose= __400__mg magnesium oxide (___mg elemental magnesium) Start Date: 04/16/16 Stop Date: 04/17/16 Status: Discontinued pneumococcal 13-valent vaccine 0.5 mL, Route: IM, Drug Form: INJ, Daily, Start date: 04/17/16 9:00:00 CDT, Dura tion: 1 doses or times, Stop date: 04/17/16 9:00:00 CDT Notes: Lightly roll vial (DO NOT SHAKE) before administration. (Same as: Prevna r 13) Start Date: 04/17/16 Stop Date: 04/16/16 Status: Deleted pneumococcal 13-valent vaccine 0.5 mL, Route: IM, Drug Form: INJ, Daily, Start date: 04/16/16 9:00:00 CDT, Dura tion: 1 doses or times, Stop date: 04/16/16 9:00:00 CDT Notes: Lightly roll vial (DO NOT SHAKE) before administration. (Same as: Prevna r 13) Start Date: 04/16/16 Stop Date: 04/16/16 Status: Completed potassium chloride 20 mEq oral tablet, extended release 20 mEq, 1 tab, Route: PO, Drug form: ERTAB, BID, Dosing Weight 67.727, kg, Start date: 04/15/16 17:00:00 CDT, Duration: 30 day, Stop date: 05/15/16 9:00:00 CLINICAL TRANSPLANT COORDINATOR Notes: (Same as: K-Dur 20)"Do Not Crush" With food and full glass of water Start Date: 04/15/16 Stop Date: 04/17/16 Status: Discontinued Prilosec 40 mg, Route: PO, Drug form: TAB, Daily, Dosing Weight 67.727, kg, Start date: 1 9:00:00 CDT, Duration: 30 day, Stop date: 05/15/16 9:00:00 CLINICAL TRANSPLANT COORDINATOR Start Date: 04/16/16 Stop Date: 04/15/16 Status: Deleted Protonix 40 mg, 1 tab, Route: PO, Drug form: ECTAB, Before Dinner, Start date: 04/15/16 1 6:30:00 CDT, Duration: 30 day, Stop date: 05/14/16 16:30:00 CLINICAL TRANSPLANT COORDINATOR Notes: Tablet should not be chewed or crushed.(Same as: Protonix) Start Date: 04/15/16 Stop Date: 04/17/16 Status: Discontinued Saline Flush 0.9% 10 ml, Route: IVP, Drug Form: INJ, Dosing Weight 67.727, kg, PRN, PRN Line Flush , Start date: 04/15/16 17:30:00 CDT, Duration: 30 day, Stop date: 05/15/16 16:29 :00 CLINICAL TRANSPLANT COORDINATOR Notes: (Same as: BD Posiflush) Start Date: 04/15/16 Stop Date: 04/17/16 Status: Discontinued Saline Flush 0.9% 10 ml, Route: IVP, Drug Form: INJ, Dosing Weight 67.727, kg, Q12H, Start date: 1 21:00:00 CDT, Duration: 30 day, Stop date: 05/15/16 9:00:00 CLINICAL TRANSPLANT COORDINATOR Notes: (Same as: BD Posiflush) Start Date: 04/15/16 Stop Date: 04/17/16 Status: Discontinued Spiriva 18 microgram, 1 inhalation, Route: INHALATION, Drug form: CAP, Daily, Dosing Derian ght 67.727, kg, Start date: 04/16/16 9:00:00 CDT, Duration: 30 day, Stop date: 07/15/15 9:00:00 CLINICAL TRANSPLANT COORDINATOR Notes: (Same As: Spiriva). Start Date: 04/16/16 Stop Date: 04/17/16 Status: Discontinued Toprol-XL 25 mg oral tablet, extended release 25 mg, 1 tab, Route: PO, Drug form: ERTAB, BID, Start date: 04/15/16 17:00:00 CD T, Duration: 30 day, Stop date: 05/15/16 9:00:00 CLINICAL TRANSPLANT COORDINATOR Notes: (Same as: Toprol XL) Do Not Crush Start Date: 04/15/16 Stop Date: 04/17/16 Status: Discontinued Results ELECTROLYTES Most recent to 1 oldest [Reference Range]: Sodium Lvl [135-145 139 mEq/L mEq/L] (04/15/16 11:31 AM) Potassium Lvl 4.2 mEq/L [3.5-5.1 mEq/L] (04/15/16 11:31 AM) Chloride Lvl [95-109 107 mEq/L mEq/L] (04/15/16 11:31 AM) CO2 [24-32 mEq/L] 26 mEq/L (04/15/16 11:31 AM) AGAP [10.0-20.0 10.2 mEq/L mEq/L] (04/15/16 11:31 AM) CHEM PANEL Most recent to 1 oldest [Reference Range]: Creatinine Lvl 0.72 mg/dL [0.50-1.40 mg/dL] (04/15/16 11:31 AM) eGFR 80 mL/min/1.73m2 1 *NA* (04/15/16:31 AM) BUN [7-22 mg/dL] 14 mg/dL (04/15/16 11:31 AM) B/C Ratio [6-25] 19 (04/15/16 11:31 AM) Glucose Lvl [70-99 95 mg/dL mg/dL] (04/15/16 11:31 AM) Total Protein 6.6 g/dL [6.4-8.4 g/dL] (04/15/16 11:31 AM) Albumin Lvl [3.5-5.0 3.4 g/dL g/dL] *LOW* (04/15/16:31 AM) Globulin [2.7-4.2 3.2 g/dL g/dL] (04/15/16 11:31 AM) A/G Ratio [0.7-1.6] 1.1 (04/15/16 11:31 AM) Calcium Lvl 9.1 mg/dL [8.5-10.5 mg/dL] (04/15/16 11:31 AM) Magnesium Lvl 2.2 mg/dL [1.8-2.4 mg/dL] (04/15/16 7:26 PM) ALT [0-65 unit/L] 18 unit/L (04/15/16 11:31 AM) AST [0-37 unit/L] 14 unit/L (04/15/16 11:31 AM) Alk Phos [39-136 74 unit/L unit/L] (04/15/16 11:31 AM) Bili Total [0.2-1.3 0.4 mg/dL mg/dL] (04/15/16 11:31 AM) 1Result Comment: The eGFR is calculated using [...] be mul tiplied by the estimated BMI. LIPIDS Most recent to 1 oldest [Reference Range]: CHD Risk [3.90-5.80] 2.90 *LOW* (04/15/16 5:50 PM) Chol [<=199 mg/dL] 177 mg/dL (04/15/16 5:50 PM) Trig [<=149 mg/dL] 127 mg/dL (04/15/16 5:50 PM) HDL [>=61 mg/dL] 61 mg/dL (04/15/16 5:50 PM) LDL (Calculated) 91 mg/dL [<=99 mg/dL] (04/15/16 5:50 PM) VLDL 25 *NA* (04/15/16 5:50 PM) SPECIAL CHEMISTRY Most recent to 1 oldest [Reference Range]: Hgb A1C [<=5.6 %] 5.9 % *HI* (04/15/16 5:50 PM) URINE AND STOOL Most recent to 1 oldest [Reference Range]: UA Turbidity [Clear] Clear (04/15/16 7:05 PM) UA Color Ltyellow *NA* (04/15/16 7:05 PM) UA pH [5.0-8.0] 6.0 (04/15/16 7:05 PM) UA Spec Grav 1.017 [<=1.030] (04/15/16 7:05 PM) UA Glucose [Negative Negative mg/dL mg/dL] *NA* (04/15/16 7:05 PM) UA Blood [Negative] Negative (04/15/16 7:05 PM) UA Ketones [Negative Negative mg/dL mg/dL] *NA* (04/15/16 7:05 PM) UA Protein [Negative Negative mg/dL mg/dL] (04/15/16 7:05 PM) UA Urobilinogen <=1.0 mg/dL [0.1-1.0 mg/dL] *NA* (04/15/16 7:05 PM) UA Bili [Negative] Negative *NA* (04/15/16 7:05 PM) UA Leuk Est Negative [Negative] (04/15/16 7:05 PM) UA Nitrite Negative [Negative] (04/15/16 7:05 PM) UA WBC [0-5 /HPF] 1 /HPF (04/15/16 7:05 PM) UA RBC [0-2 /HPF] 1 /HPF (04/15/16 7:05 PM) UA Sq Epi None Seen *NA* (04/15/16 7:05 PM) UA Hyal Cast [0-2 2 /LPF /LPF] (04/15/16 7:05 PM) UA Amorph Belem [None Occasional /HPF Seen /HPF] *NA* (04/15/16 7:05 PM) HEMATOLOGY Most recent to 1 oldest [Reference Range]: WBC [3.7-10.4 K/CMM] 6.2 K/CMM (04/15/16 11:31 AM) RBC [4.20-5.40 4.30 M/CMM M/CMM] (04/15/16 11:31 AM) Hgb [12.0-16.0 g/dL] 13.3 g/dL (04/15/16 11:31 AM) Hct [36.0-48.0 %] 40.1 % (04/15/16 11:31 AM) MCV [80.0-98.0 fL] 93.1 fL (04/15/16 11:31 AM) MCH [27.0-31.0 pg] 30.8 pg (04/15/16 11:31 AM) MCHC [32.0-36.0 33.1 g/dL g/dL] (04/15/16 11:31 AM) RDW [11.5-14.5 %] 13.5 % (04/15/16 11:31 AM) Platelet [133-450 175 K/CMM K/CMM] (04/15/16 11:31 AM) MPV [7.4-10.4 fL] 8.0 fL (04/15/16 11:31 AM) Segs [45.0-75.0 %] 61.6 % (04/15/16 11:31 AM) Lymphocytes 27.7 % [20.0-40.0 %] (04/15/16 11:31 AM) Monocytes [2.0-12.0 7.9 % %] (04/15/16 11:31 AM) Eosinophils [0.0-4.0 1.3 % %] (04/15/16 11:31 AM) Basophils [0.0-1.0 1.5 % %] *HI* (04/15/16 11:31 AM) Segs-Bands # 3.8 K/CMM [1.5-8.1 K/CMM] (04/15/16 11:31 AM) Lymphocytes # 1.7 K/CMM [1.0-5.5 K/CMM] (04/15/16 11:31 AM) Monocytes # [0.0-0.8 0.5 K/CMM K/CMM] (04/15/16 11:31 AM) Eosinophils # 0.1 K/CMM [0.0-0.5 K/CMM] (04/15/16 11:31 AM) Basophils # [0.0-0.2 0.1 K/CMM K/CMM] (04/15/16 11:31 AM) PT [12.0-14.7 12.7 seconds seconds] (04/15/16 11:31 AM) INR [0.85-1.17] 0.93 (04/15/16 11:31 AM) PTT [22.9-35.8 33.7 seconds seconds] (04/15/16 11:31 AM) Immunizations Given and Recorded Vaccine Date Status Refusal Reason pneumococcal 13-valent vaccine 04/16/16 Given Procedures Procedure Date Related Diagnosis Body Site Cataract extraction Hysterectomy Operation Operation Social History Social History Type Response Alcohol Past, Previous treatment: None. Smoking Status Former smoker; Exposure to Tobacco Smoke None; Cigarette Smoking Last 365 Days No; Reg Smoking Cessation Counseling No Assessment and Plan Extracted from: Title: Clinical Document Author: Chris Garcia MD Date: 04/17/16 Progress Note - Daily [facility] Completed: Apr, 17:44 by Chris Garcia MD RM: [address] - [address], [address] [id number] (: [id number]) F Attending: [facility] Service: Internal Medicine Reason for Admission: L HAND WEAKNESS Working DRG: Signs & symptoms w/o [facility] Code status: None Specified=FULL CODECurrent diet: Isolation: None Documented Allergies: codeine SUBJECTIVE Doing better ,no chest pain or sob,no nause or vomiting OBJECTIVE (no lab data in past 24 hours) Nava still necessary (Yes/No): Line still necessary (Yes/No): VitalsTmp(F)[id number] 04/17 17:[id number]/019388--- 04/17 11:5597.790149/414847--- 04/17 08:2297.510928/770270--- 04/17 03:2897.691424/136968--- 04/16 23:5397.714326/473082--- 24 Hr Tmax: 98.1F (36.72c) at 04/17 17:07Vital Signs are the last 5 in the past 48 hours. DateWt(kg)Wt(lb)Ht(cm)Ht(in)Method 04/15 (initial) 74.55 164.00Measured 04/15157.48 62.00Stated I&ORecordInOutBal 04/1024hr Tot 10 0 10 04/1624hr Tot 120 0 120 Medications (13) Active Scheduled Meds (11): 04/16/16 aspirin (aspirin 81 mg tablet, enteric coated) 81 mg PO Daily 04/15/16 atorvastatin (Lipitor) 20 mg PO Bedtime 04/15/16 budesonide-formoterol (budesonide-formoterol 160 mcg-4.5 mcg/inh inhalation aerosol with adapter) 2 inhalation INHALATION RBID 04/16/16 escitalopram 10 mg PO Daily 04/16/16 furosemide (furosemide 40 mg oral tablet) 40 mg PO Daily 04/16/16 magnesium oxide 400 mg PO Daily 04/15/16 metoprolol (Toprol-XL 25 mg oral tablet, extended release) 25 mg PO BID 04/15/16 pantoprazole (Protonix) 40 mg PO Before Dinner 04/15/16 potassium chloride (potassium chloride 20 mEq oral tablet, extended release) 20 mEq PO BID 04/15/16 sodium chloride (Saline Flush 0.9%) 10 ml IVP Q12H 04/16/16 tiotropium (Spiriva) 18 microgram INHALATION Daily Unscheduled Meds: None PRN Meds (2): 04/15/16 ipratropium (ipratropium 0.02% inhalation solution) 500 microgram NEB BID 04/15/16 sodium chloride (Saline Flush 0.9%) 10 ml IVP PRN One Time Meds: None Continuous Infusions: None ASSESSMENT & EXAM GENERAL Alert and oriented x 3. no obvious distress HEENT: PERRLA. EOMI. Normocephalic, Atraumatic NECK: No jugular venous distention, no bruit. Thyroid is normal. LUNGS: Clear to auscultation and percussion. HEART: RRR. S1, S2 is normal. ABDOMEN: Positive bowel sounds, no organomegaly. No tenderness appreciated EXTREMITIES: No tenderness. Lower limbs, no edema and no cyanosis. NEUROLOGIC: Grossly intact sensory and motor. SKIN: no rashes noted hand movment improved PLAN & TREATMENT home DIAGNOSES & PROBLEMS 1. Radial nerve palsy. 2. Hyperlipidemia. 3. Hyperthyroidism, depression. 4. Rule out cervical radiculopathy 5. GERD. 6. Chronic obstructive pulmonary disease, rule out stroke. Ready for Discharge (Yes/No)? TEACHING ATTESTATION Extracted from: Title: Clinical Document Author: Adama Henson MD Date: 04/16/16 Cardiology Note Adama Henson MD, PA SUBJECTIVE: Reason for consult: NSVT HISTORY OF PRESENT ILLNESS: A 80-year-old female who came into the emergency room with complaint she cannot extend her left wrist, but able to move every other direction. Denies any pain. She said she hit her left arm accidentally at the door 2 days ago. Denies any blurring of vision. Denies any syncope, denies any numbness or tingling in upper or lower extremities. Denies any incontinence. Denies any new weakness. Denies any other neurological symptoms. While on tele she was noted to have 4 beat run of NSVT. She denies any palpitations or chest pain. Denies FOSTER. Reports she just saw her internist medical doctor md Dr Roland Pacheco few days ago and she is fine. PAST MEDICAL HISTORY: Significant for hypertension, COPD, aortic valve disorder. PAST SURGICAL HISTORY: Hysterectomy, cataract surgery, aortic valve surgery and/or surgery. FAMILY HISTORY: Breast cancer, heart disease, high blood pressure, heart failure. ALLERGIES: Codeine. SOCIAL HISTORY: Used to drink, stopped alcohol. REVIEW OF SYSTEMS: No chest pain, no shortness of breath, no problem urinating or change in bowel habits. Vitals and Temp: VitalsTmp(F)[id number] 04/16 07:5597.109209/[id number]--- 04/16 06:50 1695 2.0L/m 04/16 03:2797.431540/045789--- 04/15 23:2897.792583/[id number]--- 04/15 21:16 1496 2.0L/m 24 Hr Tmax: 98.4F (36.89c) at 04/15 16:17Vital Signs are the last 5 in the past 48 hours. Scheduled Meds (11): 04/16/16 aspirin (aspirin 81 mg tablet, enteric coated) 81 mg PO Daily 04/15/16 atorvastatin (Lipitor) 20 mg PO Bedtime 04/15/16 budesonide-formoterol (budesonide-formoterol 160 mcg-4.5 mcg/inh inhalation aerosol with adapter) 2 inhalation INHALATION RBID 04/16/16 escitalopram 10 mg PO Daily 04/16/16 furosemide (furosemide 40 mg oral tablet) 40 mg PO Daily 04/16/16 magnesium oxide 400 mg PO Daily 04/15/16 metoprolol (Toprol-XL 25 mg oral tablet, extended release) 25 mg PO BID 04/15/16 pantoprazole (Protonix) 40 mg PO Before Dinner 04/15/16 potassium chloride (potassium chloride 20 mEq oral tablet, extended release) 20 mEq PO BID 04/15/16 sodium chloride (Saline Flush 0.9%) 10 ml IVP Q12H 04/16/16 tiotropium (Spiriva) 18 microgram INHALATION Daily Continuous Infusions: None Labs (Last four charted values) WBC 6.2(OCT 08) Hgb 13.3(APR 08) Hct 40.1(APR 08) Plt 175(APR 08) Na 139(APR 08) K 4.2(APR 08) CO2 26(APR 08) Cl 107(APR 08) Cr 0.72(APR 08) BUN 14(APR 08) Glucose Random 95(APR 08) Mg 2.2(APR 08) Ca 9.1(APR 08) PT 12.7(APR 08) INR 0.93(APR 15) PTT 33.7(APR 15) EXAM: Good BP control; NSR; afebrile Head: normocephalic and atraumatic Neck: no carotid bruit; no JVD CV: Regular; -S3; no significant murmurs Lungs: Clear; no wheezing; good air entry Abd: soft and no organomegaly; + bowel sounds Ext: no CCE; good pulses distally Neuro: oriented *3 Psych: appropriate ASSESSMENT: Left radial nerve palsy as per neurology asymptomatic run of 4-beat NSVT AV disorder followed by Dr Roland Pacheco and seen recently by him PLAN: Continue current cardiac mgmt; no further cardiac evaluation indicated at this time. No objection to discharge home from cardiac standpoint.
--- OUTSIDE RECORDS SUMMARY | 2018-06-18 05:53 | XMS REPORT | Summary of Care ---
Author Author [facility] Organization [facility] Address Unknown Phone Unavailable Encounter YANIRA Burns(DALY) [id number] Date(s): 12/25/17 - 12/25/17 [facility] [address] [place] [address]- Discharge Disposition: Home or Self Care Attending Physician: Manuela Greene MD Referring Physician: Manuela Greene MD Vital Signs No data available for this section Problem List Condition Effective Dates Status Health Status Informant 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 obstructive pulmonary disease(Confirmed) Deviated Resolved septum(Confirmed) Hypertension(Confirm Resolved ed) RA (rheumatoid Resolved arthritis)(Confirmed ) Allergies, Adverse Reactions, Alerts Substance Reaction Severity Status codeine Active Medications No data available for this section Results CHEM PANEL Most recent to 1 oldest [Reference Range]: eGFR 82 mL/min/1.73m2 1 *NA* (12/25/17 2:38 PM) POC Creatinine 0.7 mg/dL [0.5-1.4 mg/dL] (12/25/17 2:38 PM) 1Result Comment: The eGFR is calculated [...] be mul tiplied by the estimated BMI. Immunizations Given and Recorded Vaccine Date Status Refusal Reason pneumococcal 13-valent vaccine 04/16/16 Given Not Given Vaccine Date Status Refusal Reason pneumococcal 23-valent vaccine 04/30/17 Not Given Patient Refuses Procedures Procedure Date Related Diagnosis Body Site Status Cataract extraction Completed Hysterectomy Completed Operation Completed Operation Completed Social History Social History Type Response Substance Abuse Use: None. Sexual Sexually active: No. Exercise Exercise duration: 0. Alcohol Current, Type Wine. Frequency: 1-2 times per week. Previous treatment: None. Smoking Status Former smoker; Exposure to Tobacco Smoke None; Cigarette Smoking Last 365 Days No; Reg Smoking Cessation Counseling No; Stopped at age: 76; entered on: 07/04/17 Assessment and Plan No data available for this section
--- OUTSIDE RECORDS SUMMARY | 2018-06-18 05:53 | XMS REPORT | Summary of Care ---
Author Author [facility] Organization [facility] Address Unknown Phone Unavailable Encounter HQ Katy(DALY) [id number] Date(s): 04/27/17 - 04/30/17 [facility] [id number] [place] [address]- Discharge Disposition: Home or Self Care Attending Physician: Chris aGrcia MD Admitting Physician: Chris Garcia MD Vital Signs 1 2 3 Most recent to oldest [Reference Range]: 157.48 cm (04/28/17 3:25 AM) 157.48 cm (04/27/17 5:55 PM) Height 73.6 kg (04/28/17 6:42 AM) Current Weight 98 DegF (04/30/17 12:00 PM) 97.9 DegF (04/30/17 8:00 AM) 98.0 DegF (04/30/17 4:00 AM) Temperature Oral [96.4-99.1 DegF] 108/66 mmHg (04/30/17 12:00 PM) 117/75 mmHg (04/30/17 8:26 AM) 115/70 mmHg (04/30/17 6:17 AM) Blood Pressure [90-140/60-90 mmHg] 20 BRMIN (04/30/17 12:00 PM) 27 BRMIN *HI* (04/30/17 9:00 AM) 24 BRMIN *HI* (04/30/17 8:26 AM) Respiratory Rate [14-20 BRMIN] 95 bpm (04/28/17 3:49 AM) 99 bpm (04/28/17 1:35 AM) 92 bpm (04/27/17 10:31 PM) Peripheral Pulse Rate [60-100 bpm] 75 kg (04/28/17 3:25 AM) 75 kg (04/27/17 5:55 PM) Weight 30.24 m2 (04/28/17 3:25 AM) 30.24 m2 (04/27/17 5:55 PM) Body Mass Index Problem List Condition Effective Dates Status Health Status Informant 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 obstructive pulmonary disease(Confirmed) Hypertension(Confirm Resolved ed) RA (rheumatoid Resolved arthritis)(Confirmed ) Allergies, Adverse Reactions, Alerts Substance Reaction Severity Status codeine Active Medications Advair Diskus 250 mcg-50 mcg inhalation powder 1 puff, Route: INHALATION, Drug Form: AERO, Dosing Weight 75, kg, BID, Start erlin e: 04/28/17 17:00:00 CDT, Duration: 30 day, Stop date: 05/28/17 9:00:00 [employer] Start Date: 04/28/17 Stop Date: 04/28/17 Status: Deleted aspirin 81 mg tablet, enteric coated 81 mg, 1 tab, Route: PO, Drug form: ECTAB, Daily, Dosing Weight 75, kg, Start da te: 04/29/17 9:00:00 CDT, Duration: 30 day, Stop date: 05/28/17 9:00:00 GLASS C[employer] Notes: Do not crush or chew.(Same As: Ecotrin) Start Date: 04/29/17 Stop Date: 04/30/17 Status: Discontinued budesonide-formoterol 160 mcg-4.5 mcg/inh inhalation aerosol with adapter 2 inhalation, Route: INHALATION, Drug Form: AERO/A, BID, Start date: 04/28/17 17 :00:00 CDT, Duration: 30 day, Stop date: 05/28/17 9:00:00 [employer]ASS C[employer] Notes: (Same as: Symbicort)WASTE: Aerosol - Return to Pharmacy Start Date: 04/28/17 Stop Date: 04/30/17 Status: Discontinued DuoNeb inhalation solution 3 ml, Route: NEB, Drug Form: SOLN, Dosing Weight 75, kg, PRN, PRN Respiratory Pr otocol, Start date: 04/27/17 22:44:00 CDT, Duration: 30 day, Stop date: 05/27/17 21:43:00 GLASS [employer] HELPER Notes: (Same as: Duoneb) Start Date: 04/27/17 Stop Date: 04/30/17 Status: Discontinued escitalopram 10 mg, 1 tab, Route: PO, Drug form: TAB, Daily, Dosing Weight 75, kg, Start date : 04/29/17 9:00:00 CDT, Duration: 30 day, Stop date: 05/28/17 9:00:00 GLASS [employer] HEL[employer] Notes: (Same as: Lexapro) Start Date: 04/29/17 Stop Date: 04/30/17 Status: Discontinued furosemide 40 mg oral tablet 40 mg, 1 tab, Route: PO, Drug form: TAB, Daily, Dosing Weight 75, kg, Start date : 04/29/17 9:00:00 CDT, Duration: 30 day, Stop date: 05/28/17 9:00:00 GLASS [employer] HELPER Notes: (Same as: Lasix) May cause GI upset. Give with food or milk. Start Date: 04/29/17 Stop Date: 04/30/17 Status: Discontinued Heparin - one time bolus for DVT/PE 4,800 unit, 4.8 mL, Route: IVPB, Drug form: INJ, ONCE, Dosing Weight 75, kg, Sta rt date: 04/28/17 3:06:00 CDT, Stop date: 04/28/17 3:06:00 CDT Start Date: 04/28/17 Stop Date: 04/28/17 Status: Completed Heparin 40 unit/kg Bolus (Heparin Dosing Weight) Route: IVP, PRN, 2,400 unit, 2.4 mL, Drug form: INJ, PRN, Heparin Protocol, Star t date: 04/28/17 3:08:00 CDT Stop date: 05/28/17 2:07:00 GLASS [employer], 30 day Start Date: 04/28/17 Stop Date: 04/30/17 Status: Discontinued Heparin 80 unit/kg Bolus (Heparin Dosing Weight) Route: IVP, PRN, 4,800 unit, 4.8 mL, Drug form: INJ, PRN, Heparin Protocol, Star t date: 04/28/17 3:08:00 CDT Stop date: 05/28/17 2:07:00 GLASS [employer], 30 day Start Date: 04/28/17 Stop Date: 04/30/17 Status: Discontinued heparin additive 25,000 unit [18 unit/kg/hr] + Premix Diluent Dextrose 5% 500 mL 500 mL, Rate: 21.6 ml/hr, Infuse over: 23.1 hr, Route: IV, Dosing Weight 60 kg, Total Volume: 500 mL, Start date: 04/28/17 3:08:00 CDT, Duration: 30 day, Stop d ate: 05/28/17 3:07:00 GL[employer] Start Date: 04/28/17 Stop Date: 04/30/17 Status: Discontinued ipratropium 0.02% inhalation solution 500 microgram, 2.5 mL, Route: NEB, Drug form: SOLN, RBID, Dosing Weight 75, kg, PRN Wheezing, Start date: 04/28/17 11:43:00 CDT, Duration: 30 day, Stop date: 11:42:00 GL[employer] HELPER Notes: SEE RT DOCUMENTATION(Same as:Atrovent) Start Date: 04/28/17 Stop Date: 04/30/17 Status: Discontinued Lasix 20 mg, Route: IVP, Drug form: INJ, ONCE, Dosing Weight 75, kg, Priority: STAT, S tart date: 04/27/17 22:44:00 CDT, Stop date: 04/27/17 22:44:00 CDT Start Date: 04/27/17 Stop Date: 04/27/17 Status: Completed Levaquin 500 mg, 2 tab, Route: PO, Drug form: TAB, [id number], Dosing Weight 75, kg, Start d ate: 04/28/17 17:00:00 CDT, Stop date: 04/30/17 17:00:00 CDT, ABX Indication: Ot her (specify in Comments) Notes: Do not give w/antacids, dairy pdt & minerals Take 1 hr before or 2 hr after dairy pdt (Same as:Levaquin) Start Date: 04/28/17 Stop Date: 04/30/17 Status: Completed Lipitor 20 mg, 2 tab, Route: PO, Drug form: TAB, Bedtime, Dosing Weight 75, kg, Start da te: 04/28/17 21:00:00 CDT, Duration: 30 day, Stop date: 05/27/17 21:00:00 GLASS [employer] HELPER Notes: (Same As: Lipitor) Start Date: 04/28/17 Stop Date: 04/30/17 Status: Discontinued magnesium oxide 400 mg, 1 tab, Route: PO, Drug form: TAB, Daily, Dosing Weight 75, kg, Start erlin e: 04/29/17 9:00:00 CDT, Duration: 30 day, Stop date: 05/28/17 9:00:00 GLASS [employer] HELPER Notes: (Same as: Mag-Ox 400)Magnesium oxide [id number] elemental magnesiumDose= ____mg magnesium oxide (___mg elemental magnesium) Start Date: 04/29/17 Stop Date: 04/30/17 Status: Discontinued morphine Sulfate 2 mg, 1 mL, Route: IVP, Drug form: SOLN, Q4H, Dosing Weight 75, kg, PRN Pain Sco re 7-10, Start date: 04/28/17 2:14:00 CDT, Duration: 30 day, Stop date: 05/28/17 2:13:00 GL[employer] Start Date: 04/28/17 Stop Date: 04/30/17 Status: Discontinued Mucinex DM 1 tab, Route: PO, Drug Form: ERTAB, Dosing Weight 75, kg, Q12H, Start date: 04/09 07/25 21:00:00 CDT, Duration: 30 day, Stop date: 05/28/17 9:00:00 GLASS [employer] HELPER Notes: (Same as: Guaifenex DM)"Do Not Crush" Start Date: 04/28/17 Stop Date: 04/30/17 Status: Discontinued ondansetron 4 mg, 2 mL, Route: IVP, Drug form: INJ, Q6H, Dosing Weight 75, kg, PRN Nausea & Vomiting, Start date: 04/28/17 2:14:00 CDT, Duration: 30 day, Stop date: 2:13:00 GLASS C[employer] HELPER Notes: (Same as: Kelly) MEDICATION WASTE Product Size: 4 mgProduct Was enedina: ___ mg Start Date: 04/28/17 Stop Date: 04/30/17 Status: Discontinued pneumococcal 23-valent vaccine 0.5 mL, Route: IM, Drug Form: INJ, Daily, Start date: 04/30/17 15:53:00 CDT, Dur ation: 1 doses or times, Stop date: 04/30/17 15:53:00 CDT Notes: (Same as: Pneumovax 23) Refrigerate Start Date: 04/30/17 Stop Date: 04/30/17 Status: Canceled potassium chloride 20 mEq oral tablet, extended release 20 mEq, 1 tab, Route: PO, Drug form: ERTAB, BID, Dosing Weight 75, kg, Start erlin e: 04/28/17 17:00:00 CDT, Duration: 30 day, Stop date: 05/28/17 9:00:00 GLASS C[employer] HELPER Notes: (Same as: K-Dur 20)"Do Not Crush" With food and full glass of water Start Date: 04/28/17 Stop Date: 04/30/17 Status: Discontinued Prilosec 40 mg, Route: PO, Drug form: TAB, Daily, Dosing Weight 75, kg, Start date: 04/29 9:00:00 CDT, Duration: 30 day, Stop date: 05/28/17 9:00:00 GLASS [employer] Start Date: 04/29/17 Stop Date: 04/28/17 Status: Deleted Protonix 40 mg, 1 tab, Route: PO, Drug form: ECTAB, Daily, Start date: 04/29/17 9:00:00 C DT, Duration: 30 day, Stop date: 05/28/17 9:00:00 GLASS C[employer] HELPER Notes: Tablet should not be chewed or crushed.(Same as: Protonix) Start Date: 04/29/17 Stop Date: 04/30/17 Status: Discontinued Solu-MEDROL 60 mg, Route: IVP, ONCE, Dosing Weight 75, kg, Priority: STAT, Start date: 04/27 22:43:00 CDT, Stop date: 04/27/17 22:43:00 CDT Start Date: 04/27/17 Stop Date: 04/27/17 Status: Completed Spiriva 18 microgram, 1 inhalation, Route: INHALATION, Drug form: CAP, Daily, Dosing Derian ght 75, kg, Start date: 04/29/17 9:00:00 CDT, Duration: 30 day, Stop date: 05/28 9:00:00 GLASS CUTTER HELPER Notes: (Same As: Spiriva). Start Date: 04/29/17 Stop Date: 04/30/17 Status: Discontinued Toprol-XL 25 mg oral tablet, extended release 25 mg, 1 tab, Route: PO, Drug form: ERTAB, Daily, Start date: 04/29/17 9:00:00 C DT, Duration: 30 day, Stop date: 05/28/17 9:00:00 GLASS C[employer] HELPER Notes: (Same as: Toprol XL) Do Not Crush Start Date: 04/29/17 Stop Date: 04/30/17 Status: Discontinued Xarelto 15 mg, 1 tab, Route: PO, Drug form: TAB, Q12H, Dosing Weight 75, kg, Start date: 04/30/17 9:00:00 CDT, Duration: 30 day, Stop date: 05/29/17 21:00:00 GLASS C[employer] HELPER Notes: (Same as: Xarelto)Administer with food Start Date: 04/30/17 Stop Date: 04/30/17 Status: Discontinued Xarelto 15 mg oral tablet 15 mg=1 tab, PO, Q12H, # 42 tab, 0 Refill(s) Start Date: 04/30/17 Stop Date: 04/30/17 Status: Deleted Xarelto 15 mg oral tablet 15 mg=1 tab, PO, Q12H, # 42, 0 Refill(s) Start Date: 04/30/17 Status: Ordered Results ELECTROLYTES 1 2 3 Most recent to oldest [Reference Range]: 138 mEq/L (04/28/17 4:38 AM) 143 mEq/L (04/27/17 8:50 PM) Sodium Lvl [135-145 mEq/L] 4.3 mEq/L (04/28/17 4:38 AM) 3.9 mEq/L (04/27/17 8:50 PM) Potassium Lvl [3.5-5.1 mEq/L] 104 mEq/L (04/28/17 4:38 AM) 105 mEq/L (04/27/17 8:50 PM) Chloride Lvl [95-109 mEq/L] 25 mEq/L (04/28/17 4:38 AM) 30 mEq/L (04/27/17 8:50 PM) CO2 [24-32 mEq/L] 13.3 mEq/L (04/28/17 4:38 AM) 11.9 mEq/L (04/27/17 8:50 PM) AGAP [10.0-20.0 mEq/L] CHEM PANEL 1 2 3 Most recent to oldest [Reference Range]: 0.88 mg/dL (04/28/17 4:38 AM) 0.73 mg/dL (04/27/17 8:50 PM) Creatinine Lvl [0.50-1.40 mg/dL] 62 mL/min/1.73m2 1 *NA* (04/28/17 4:38 AM) 78 mL/min/1.73m2 2 *NA* (04/27/17 8:50 PM) eGFR 16 mg/dL (04/28/17 4:38 AM) 16 mg/dL (04/27/17 8:50 PM) BUN [7-22 mg/dL] 22 (04/27/17 8:50 PM) B/C Ratio [6-25] 196 mg/dL *HI* (04/28/17 4:38 AM) 118 mg/dL *HI* (04/27/17 8:50 PM) Glucose Lvl [70-99 mg/dL] 6.8 g/dL (04/27/17 8:50 PM) Total Protein [6.4-8.4 g/dL] 3.3 g/dL *LOW* (04/27/17 8:50 PM) Albumin Lvl [3.5-5.0 g/dL] 3.5 g/dL (04/27/17 8:50 PM) Globulin [2.7-4.2 g/dL] 0.9 (04/27/17 8:50 PM) A/G Ratio [0.7-1.6] 8.5 mg/dL (04/28/17 4:38 AM) 8.9 mg/dL (04/27/17 8:50 PM) Calcium Lvl [8.5-10.5 mg/dL] 27 unit/L (04/27/17 8:50 PM) ALT [0-65 unit/L] 19 unit/L (04/27/17 8:50 PM) AST [0-37 unit/L] 74 unit/L (04/27/17 8:50 PM) Alk Phos [39-136 unit/L] 0.3 mg/dL (04/27/17 8:50 PM) Bili Total [0.2-1.3 mg/dL] 1Result Comment: The eGFR is calculated using [...] be mul tiplied by the estimated BMI. CARDIAC ENZYMES 1 2 3 Most recent to oldest [Reference Range]: 65 unit/L (04/28/17 4:38 AM) 83 unit/L (04/27/17 8:50 PM) Total CK [12-191 unit/L] 4.5 ng/mL *HI* (04/27/17 8:50 PM) CK MB [0.5-3.6 ng/mL] 5.4 *HI* (04/27/17 8:50 PM) CK MB Index [0.0-2.5] <0.02 ng/mL (04/28/17 4:38 AM) <0.02 ng/mL (04/27/17 8:50 PM) Troponin-I [0.00-0.40 ng/mL] 142 pg/mL *HI* (04/27/17 8:50 PM) BNP [<=100 pg/mL] HEMATOLOGY 1 2 3 Most recent to oldest [Reference Range]: 8.4 K/CMM (04/29/17 2:24 AM) 6.9 K/CMM (04/28/17 4:38 AM) 7.7 K/CMM (04/27/17 8:50 PM) WBC [3.7-10.4 K/CMM] 3.97 M/CMM *LOW* (04/29/17 2:24 AM) 3.89 M/CMM *LOW* (04/28/17 4:38 AM) 4.03 M/CMM *LOW* (04/27/17 8:50 PM) RBC [4.20-5.40 M/CMM] 13.1 g/dL (04/29/17 2:24 AM) 12.8 g/dL (04/28/17 4:38 AM) 13.8 g/dL (04/27/17 8:50 PM) Hgb [12.0-16.0 g/dL] 38.5 % (04/29/17 2:24 AM) 37.4 % (04/28/17 4:38 AM) 39.9 % (04/27/17 8:50 PM) Hct [36.0-48.0 %] 97.0 fL (04/29/17 2:24 AM) 96.2 fL (04/28/17 4:38 AM) 98.9 fL *HI* (04/27/17 8:50 PM) MCV [80.0-98.0 fL] 33.1 pg *HI* (04/29/17 2:24 AM) 33.1 pg *HI* (04/28/17 4:38 AM) 34.2 pg *HI* (04/27/17 8:50 PM) MCH [27.0-31.0 pg] 34.1 g/dL (04/29/17 2:24 AM) 34.4 g/dL (04/28/17 4:38 AM) 34.5 g/dL (04/27/17 8:50 PM) MCHC [32.0-36.0 g/dL] 14.2 % (04/29/17 2:24 AM) 14.9 % *HI* (04/28/17 4:38 AM) 14.7 % *HI* (04/27/17 8:50 PM) RDW [11.5-14.5 %] 197 K/CMM (04/29/17 2:24 AM) 183 K/CMM (04/28/17 4:38 AM) 201 K/CMM (04/27/17 8:50 PM) Platelet [133-450 K/CMM] 8.0 fL (04/29/17 2:24 AM) 7.8 fL (04/28/17 4:38 AM) 7.9 fL (04/27/17 8:50 PM) MPV [7.4-10.4 fL] 73.1 % (04/29/17 2:24 AM) 89.8 % *HI* (04/28/17 4:38 AM) 66.6 % (04/27/17 8:50 PM) Segs [45.0-75.0 %] 19.1 % *LOW* (04/29/17 2:24 AM) 7.6 % *LOW* (04/28/17 4:38 AM) 22.2 % (04/27/17 8:50 PM) Lymphocytes [20.0-40.0 %] 6.6 % (04/29/17 2:24 AM) 2.0 % (04/28/17 4:38 AM) 7.3 % (04/27/17 8:50 PM) Monocytes [2.0-12.0 %] 0.8 % (04/29/17 2:24 AM) 0.1 % (04/28/17 4:38 AM) 2.9 % (04/27/17 8:50 PM) Eosinophils [0.0-4.0 %] 0.4 % (04/29/17 2:24 AM) 0.5 % (04/28/17 4:38 AM) 1.0 % (04/27/17 8:50 PM) Basophils [0.0-1.0 %] 6.1 K/CMM (04/29/17 2:24 AM) 6.2 K/CMM (04/28/17 4:38 AM) 5.1 K/CMM (04/27/17 8:50 PM) Segs-Bands # [1.5-8.1 K/CMM] 1.6 K/CMM (04/29/17 2:24 AM) 0.5 K/CMM *LOW* (04/28/17 4:38 AM) 1.7 K/CMM (04/27/17 8:50 PM) Lymphocytes # [1.0-5.5 K/CMM] 0.6 K/CMM (04/29/17 2:24 AM) 0.1 K/CMM (04/28/17 4:38 AM) 0.6 K/CMM (04/27/17 8:50 PM) Monocytes # [0.0-0.8 K/CMM] 0.1 K/CMM (04/29/17 2:24 AM) 0.2 K/CMM (04/27/17 8:50 PM) Eosinophils # [0.0-0.5 K/CMM] 0.1 K/CMM (04/27/17 8:50 PM) Basophils # [0.0-0.2 K/CMM] Normal (04/28/17 4:38 AM) Normal (04/27/17 8:50 PM) RBC Morph Normal (04/28/17 4:38 AM) Normal (04/27/17 8:50 PM) Plt Morph 12.4 seconds (04/28/17 4:38 AM) 12.5 seconds (04/27/17 8:50 PM) PT [12.0-14.7 seconds] 0.92 (04/28/17 4:38 AM) 0.93 (04/27/17 8:50 PM) INR [0.85-1.17] 1.35 ug/mL FEU *NA* (04/28/17 1:40 AM) D-Dimer 80.5 seconds *HI* (04/30/17 5:05 AM) 96.6 seconds *HI* (04/29/17 6:50 PM) 37.9 seconds *HI* (04/29/17 8:35 AM) PTT [22.9-35.8 seconds] Immunizations Given and Recorded Vaccine Date Status [...] Clinical Document Author: Chris Garcia MD Date: 04/30/17 Progress Note - Daily [facility] Completed: Sunday, APR 30, 2017, 14:24 by Chris Garcia MD RM: [address], [address] [id number], CHRISTIANO [id number] (: 1935) F Attending: Chris Garcia MDPhone: Service: Internal Medicine Reason for Admission: ACUTE BRONCHITIS WITH COPD Working DRG: None Documented Code status: None Specified=FULL CODECurrent diet: Isolation: None Documented Allergies: codeine SUBJECTIVE OBJECTIVE 24hr Labs 04/30 0505 PTT80.5 H 04/29 1850 PTT96.6 H Nava still necessary (Yes/No): Line still necessary (Yes/No): VitalsTmp(F)[id number] 04/30 12:[id number]--- 04/30 09:00----103-----2792--- 04/30 08:26----96352/7524------ 04/30 08:0097.9105-----2093--- 04/30 07:29 1995--- 24 Hr Tmax: 98F (36.67c) at 04/30 12:00Vital Signs are the last 5 in the past 48 hours. DateWt(kg)Wt(lb)Ht(cm)Ht(in)Method 04/28 75.00 165.05417.48 62.00Measured 04/27 (initial) 75.00 165.00Estimated 48 62.00Stated I&ORecordInOutBal 04/2324hr Tot 0 0 0 04/2224hr Tot 2 0 2 Medications (17) Active Scheduled Meds (13): 04/29/17 aspirin (aspirin 81 mg tablet, enteric coated) 81 mg PO Daily 04/28/17 atorvastatin (Lipitor) 20 mg PO Bedtime 04/28/17 budesonide-formoterol (budesonide-formoterol 160 mcg-4.5 mcg/inh inhalation aerosol with adapter) 2 inhalation INHALATION BID 04/28/17 dextromethorphan-guaiFENesin (Mucinex DM) 1 tab PO Q12H 04/29/17 escitalopram 10 mg PO Daily 04/29/17 furosemide (furosemide 40 mg oral tablet) 40 mg PO Daily 04/28/17 levofloxacin (Levaquin) 500 mg PO [id number] 04/29/17 magnesium oxide 400 mg PO Daily 04/29/17 metoprolol (Toprol-XL 25 mg oral tablet, extended release) 25 mg PO Daily 04/29/17 pantoprazole (Protonix) 40 mg PO Daily 04/28/17 potassium chloride (potassium chloride 20 mEq oral tablet, extended release) 20 mEq PO BID 04/30/17 rivaroxaban (Xarelto) 15 mg PO Q12H 04/29/17 tiotropium (Spiriva) 18 microgram INHALATION Daily Unscheduled Meds: None PRN Meds (4): 04/27/17 albuterol-ipratropium (DuoNeb inhalation solution) 3 ml NEB PRN 04/28/17 ipratropium (ipratropium 0.02% inhalation solution) 500 microgram NEB RBID 04/28/17 morphine Sulfate 2 mg IVP Q4H 04/28/17 ondansetron 4 mg IVP Q6H One Time Meds: None Continuous Infusions: None ASSESSMENT & EXAM PLAN & TREATMENT DIAGNOSES & PROBLEMS [id number] Ready for Discharge (Yes/No)? TEACHING ATTESTATION Extracted from: Title: Clinical Document Author: Adama Henson MD Date: 04/28/17 Cardiology Note Adama Henson MD, PA SUBJECTIVE: REASON FOR CONSULT: Shortness of breath, CHF, PE HISTORY OF PRESENT ILLNESS: This is an 89-year-old woman who presents to the emergency room with increasing shortness of breath on exertion. Ten days ago, she was seen with shortness of breath at an urgent care center prior to this and was prescribed antibiotics, which she has been taking without relief. She saw her primary care physician 3 days ago. Lab work was done and she was given steroids and antibiotics, with which she has been compliant with. She noticed, however, that she has been having increasing shortness of breath during her recent excursion with her friends in [place], [place], where she had been exerting herself significantly. After that time, she felt that she needed to come to the emergency room for further evaluation of persistent shortness of breath. Her evaluation so far included a CTA of the chest was revealed evidence of bilateral pulmonary embolism. PAST MEDICAL HISTORY: COPD Hypertension Severe aortic stenosis status post aortic valve replacement in 2013 Abdominal aortic aneurysm status post repair in 2013 PAST SURGICAL HISTORY: Aortic valve replacement using porcine valve in 2013 Abdominal aortic aneurysm repair in 2014 hysterectomy and cataract surgery. FAMILY HISTORY: Breast cancer in her sister and mother had hypertension, heart disease, heart attack. SOCIAL HISTORY: Former smoker. Past alcohol use, no drug use. REVIEW OF SYSTEMS: A 12-point review of systems is negative except for that stated above in history of present illness. She has no pleuritic chest pain or chest pain in general. No syncope, palpitations. No headaches, nausea, vomiting, abdominal pain, dysuria or asymmetric lower extremity swelling. No lower extremity swelling of note, in general MEDICATIONS: Please see the nursing medical reconciliation form. ALLERGIES: Patient is allergic to codeine Vitals and Temp: VitalsTmp(F)[id number] 04/28 12:[id number]--- 04/28 11:48----[id number]------ 04/28 10:53 76 30% 04/28 10:00----[id number] 21% 04/28 08:0097.328233/375733 4.0L/m 24 Hr Tmax: 98.3F (36.83c) at 04/28 12:00Vital Signs are the last 5 in the past 48 hours. Scheduled Meds (10): 04/29/17 aspirin (aspirin 81 mg tablet, enteric coated) 81 mg PO Daily 04/28/17 atorvastatin (Lipitor) 20 mg PO Bedtime 04/28/17 budesonide-formoterol (budesonide-formoterol 160 mcg-4.5 mcg/inh inhalation aerosol with adapter) 2 inhalation INHALATION BID 04/29/17 escitalopram 10 mg PO Daily 04/29/17 furosemide (furosemide 40 mg oral tablet) 40 mg PO Daily 04/29/17 magnesium oxide 400 mg PO Daily 04/29/17 metoprolol (Toprol-XL 25 mg oral tablet, extended release) 25 mg PO Daily 04/29/17 pantoprazole (Protonix) 40 mg PO Daily 04/28/17 potassium chloride (potassium chloride 20 mEq oral tablet, extended release) 20 mEq PO BID 04/29/17 tiotropium (Spiriva) 18 microgram INHALATION Daily Continuous Infusions (1): 04/28/17 heparin 25,000 unit [18 unit/kg/hr] + Premix Diluent Dextrose 5% 500 mL (heparin additive 25,000 unit [18 unit/kg/hr] + Premix Diluent Dextrose 5% 500 mL) 500 mL 21.6 ml/hr Labs (Last four charted values) WBC 6.9(APR 28)7.7(APR 27) Hgb 12.8(APR 28)13.8(APR 27) Hct 37.4(APR 28)39.9(APR 27) Plt 183(APR 28)201(APR 27) Na 138(APR 28)143(APR 27) K 4.3(APR 28)3.9(APR 27) CO2 25(APR 28)30(APR 27) Cl 104(APR 28)105(APR 27) Cr 0.88(APR 28)0.73(APR 27) BUN 16(APR 28)16(APR 27) Glucose Random H 196(APR 28)H 118(APR 27) Ca 8.5(APR 28)8.9(APR 27) PT 12.4(APR 28)12.5(APR 27) INR 0.92(APR 28)0.93(APR 27) PTT H 45.6(APR 28)28.4(APR 28)29.2(APR 27) Troponin <0.02(APR 28)<0.02(APR 27) CK MB H 4.5(APR 27) Total CK 65(APR 28)83(APR 27) EXAM: Good BP control; NSR; afebrile Head: normocephalic and atraumatic Neck: no carotid bruit; no JVD CV: Regular; -S3 Lungs: Decreased bilateral air entry Abd: soft and no organomegaly; + bowel sounds Ext: no CCE; good pulses distally Neuro: nonfocal; oriented *3 Psych: appropriate ASSESSMENT: Acute bilateral pulmonary embolism Normal sinus rhythm and no known history of cardiac arrhythmias Normal LV systolic function by echo; EF 65% No known CAD Aortic valve replacement using porcine valve in 2013 Abdominal aortic aneurysm status post repair in 2013 COPD not on home oxygen Hypertension with reasonable control PLAN: The patient is currently on IV heparin. I suggested starting good p.o. Eliquis 10 mg twice daily for 1 week and then 5 mg twice daily. I will defer the final decision to pulmonary critical care service. The patient is currently followed by her corporate administrative assistant in [facility] Dr. Pacheco Extracted from: Title: Clinical Document Author: Luis Manuel German MD Date: 04/28/17 full H&P dictated, #[id number] date/time: 04/28/2017 01:45
--- OUTSIDE RECORDS SUMMARY | 2018-06-18 05:53 | XMS REPORT | Summary of Care ---
Author Author [facility] Organization [facility] Address Unknown Phone Unavailable Encounter HQ Diana_[email or web address](FIN) [id number] Date(s): 09/13/16 - 09/13/16 [facility] [address] [place] [address]- [phone] Discharge Disposition: Home or Self Care Attending [...] No data available for this section Immunizations Given and Recorded Vaccine Date Status [...]
--- OUTSIDE RECORDS SUMMARY | 2018-06-18 05:53 | XMS REPORT | Summary of Care ---
Author Organization Unknown Address Unknown Phone Unavailable Encounter [facility](DALY) [id number] Date(s): 10/13/14 - 10/13/14 [facility] [address] [place] [address]- Discharge Disposition: Home Physician Attending: Papi Dior MD Physician Admitting: Papi Dior MD Physician_Referring: Papi Dior MD Vital Signs 1 2 3 Most recent to oldest [Reference Range]: 160.02 cm (10/06/14 10:49 AM) Height 109/52 mmHg (10/13/14 1:45 PM) 96/51 mmHg (10/13/14 1:30 PM) 107/58 mmHg (10/13/14 1:15 PM) Blood Pressure [90-140/60-90 mmHg] 16 BRMIN (10/13/14 1:45 PM) 17 BRMIN (10/13/14 1:30 PM) 16 BRMIN (10/13/14 1:15 PM) Respiratory Rate [14-20 BRMIN] 67.727 kg (10/06/14 10:49 AM) Weight 26.45 m2 (10/06/14 10:49 AM) Body Mass Index Problem List Condition Effective Dates Status Health Status Informant 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 obstructive pulmonary disease(Confirmed) Hypertension(Confirm Resolved ed) Allergies, Adverse Reactions, Alerts Substance Reaction Severity Status codeine Active Medications acetaminophen 500 mg, PO, PRN, 0 Refill(s) Start Date: 10/06/14 Status: Ordered Advair Diskus 250 mcg-50 mcg inhalation powder 1 puff, INHALATION, BID, # 28 ea, 0 Refill(s) Start Date: 10/06/14 Status: Ordered budesonide 0.5 mg/2 mL inhalation suspension 0.5 mg=2 ml, NEB, BID, # 60 ea, 0 Refill(s) Start Date: 10/06/14 Stop Date: 10/13/14 Status: Discontinued cetirizine 10 mg oral tablet, dispersible 10 mg=1 tab, PO, Daily, 0 Refill(s) Start Date: 10/06/14 Stop Date: 10/13/14 Status: Discontinued dextromethorphan-guaiFENesin 10 mg-100 mg/5 mL oral liquid 5 ml, PO, Q4H, PRN Cough, # 300 ml, 0 Refill(s) Start Date: 10/06/14 Stop Date: 10/16/14 Status: Ordered docusate sodium 100 mg oral capsule 100 mg=0, PO, PRN, PRN Constipation, # 20 cap, 0 Refill(s) Start Date: 10/06/14 Status: Ordered escitalopram 10 mg oral tablet 10 mg=1 tab, PO, Daily, # 30 tab, 0 Refill(s) Start Date: 10/06/14 Status: Ordered esomeprazole 10 mg, PO, Daily, 0 Refill(s) Start Date: 10/06/14 Status: Ordered fluticasone 50 mcg inhalation powder 50 microgram=, INHALATION, BID, 0 Refill(s) Start Date: 10/06/14 Stop Date: 10/13/14 Status: Discontinued furosemide 40 mg oral tablet 40 mg=1 tab, PO, Daily, # 30 tab, 0 Refill(s) Start Date: 10/06/14 Status: Ordered ipratropium 0.02% inhalation solution 500 microgram=2.5 mL, NEB, BID, 0 Refill(s) Start Date: 10/06/14 Status: Ordered levofloxacin 500 mg oral tablet 500 mg=1 tab, PO, Daily, # 7 tab, 0 Refill(s) Start Date: 10/06/14 Stop Date: 10/13/14 Status: Discontinued Lipitor 0 Refill(s) Start Date: 10/13/14 Status: Ordered magnesium oxide 400 mg oral tablet 400 mg=1 tab, PO, Daily, # 10 tab, 0 Refill(s) Start Date: 10/06/14 Stop Date: 10/16/14 Status: Ordered metoprolol tartrate 25 mg oral tablet 25 mg=1 tab, PO, BID, # 180 tab, 0 Refill(s) Start Date: 10/06/14 Status: Ordered [place] 10/325 oral tablet 1 tab, PO, Q6H, PRN for pain, # 24 tab, 0 Refill(s) Start Date: 10/06/14 Stop Date: 10/12/14 Status: Ordered omega-3 polyunsaturated fatty acids 0 Refill(s) Start Date: 10/06/14 Status: Ordered potassium chloride 20 mEq oral tablet, extended release 20 mEq=1 tab, PO, BID, # 10 tab, 0 Refill(s) Start Date: 10/06/14 Status: Ordered Sodium Chloride 0.9% IV 1000 mL 1,000 mL, Rate: 25 ml/hr, Infuse over: 40 hr, Route: IV, Dosing Weight 67.727 kg , Total Volume: 1,000, Start date: 10/13/14 12:28:00, Duration: 30 day, Stop erlin e: 11/12/14 12:27:00 Start Date: 10/13/14 Stop Date: 10/13/14 Status: Discontinued Spiriva 18 microgram, INHALATION, Daily, # 30 ea, 0 Refill(s) Start Date: 10/06/14 Status: Ordered Vitamin B Complex oral capsule 1 tab, PO, Daily, # 30 cap, 0 Refill(s) Start Date: 10/06/14 Status: Ordered Vitamin D 0 Refill(s) Start Date: 10/06/14 Stop Date: 10/13/14 Status: Discontinued Vitamin D 0 Refill(s) Start Date: 10/06/14 Status: Ordered Results ELECTROLYTES Most recent to 1 oldest [Reference Range]: Sodium Lvl [135-145 138 mEq/L mEq/L] (10/06/14 10:25 AM) Potassium Lvl 3.8 mEq/L [3.5-5.1 mEq/L] (10/06/14 10:25 AM) Chloride Lvl [95-109 98 mEq/L mEq/L] (10/06/14 10:25 AM) CO2 [24-32 mEq/L] 32 mEq/L (10/06/14 10:25 AM) AGAP [10.0-20.0 11.8 mEq/L mEq/L] (10/06/14 10:25 AM) CHEM PANEL Most recent to 1 oldest [Reference Range]: Creatinine Lvl 1.1 mg/dL [0.5-1.4 mg/dL] (10/06/14 10:25 AM) eGFR 48 mL/min/1.73m2 1 *NA* (10/06/14 10:25 AM) BUN [7-22 mg/dL] 21 mg/dL (10/06/14 10:25 AM) B/C Ratio [6-25] 19 (10/06/14 10:25 AM) Glucose Lvl [70-99 149 mg/dL 2 mg/dL] *HI* (10/06/14 10:25 AM) Total Protein 7.8 g/dL [6.4-8.4 g/dL] (10/06/14 10:25 AM) Albumin Lvl [3.5-5.0 3.4 g/dL g/dL] *LOW* (10/06/14 10:25 AM) Globulin [2.0-4.0 4.4 g/dL g/dL] *HI* (10/06/14 10:25 AM) A/G Ratio [0.7-1.6] 0.8 (10/06/14 10:25 AM) Calcium Lvl 9.3 mg/dL [8.5-10.5 mg/dL] (10/06/14 10:25 AM) ALT [0-65 unit/L] 10 unit/L (10/06/14 10:25 AM) AST [0-37 unit/L] 19 unit/L (10/06/14 10:25 AM) Alk Phos [39-136 88 unit/L unit/L] (10/06/14 10:25 AM) Bili Total [0.2-1.3 0.3 mg/dL mg/dL] (10/06/14 10:25 AM) 1Result Comment: The eGFR is calculated [...] values reflect the clinical guidelines of the [place] [employer]. CARDIAC ENZYMES Most recent to 1 oldest [Reference Range]: BNP [<=100 pg/mL] 156 pg/mL 3 *HI* (10/06/14 10:25 AM) 3Interpretive Data: Elevated results are in line with increasing severity of congestive heart failure. Minor elevations between 100 and 300 may be seen with Myocardial Ischemia, Sodium retaining drugs, and compensated/treated heart failure. HEMATOLOGY Most recent to 1 oldest [Reference Range]: WBC [3.7-10.4 K/CMM] 7.2 K/CMM (10/06/14 10:25 AM) RBC [4.20-5.40 3.98 M/CMM M/CMM] *LOW* (10/06/14 10:25 AM) Hgb [12.0-16.0 g/dL] 12.3 g/dL (10/06/14 10:25 AM) Hct [36.0-48.0 %] 35.9 % *LOW* (10/06/14 10:25 AM) MCV [80.0-98.0 fL] 90.2 fL (10/06/14 10:25 AM) MCH [27.0-31.0 pg] 31.0 pg (10/06/14 10:25 AM) MCHC [32.0-36.0 34.3 g/dL g/dL] (10/06/14 10:25 AM) RDW [11.5-14.5 %] 13.8 % (10/06/14 10:25 AM) Platelet [133-450 310 K/CMM K/CMM] (10/06/14 10:25 AM) MPV [7.4-10.4 fL] 7.5 fL (10/06/14 10:25 AM) Segs [45.0-75.0 %] 64.8 % (10/06/14 10:25 AM) Lymphocytes 22.7 % [20.0-40.0 %] (10/06/14 10:25 AM) Monocytes [2.0-12.0 10.0 % %] (10/06/14 10:25 AM) Eosinophils [0.0-4.0 1.4 % %] (10/06/14 10:25 AM) Basophils [0.0-1.0 1.1 % %] *HI* (10/06/14 10:25 AM) Segs-Bands # 4.7 K/CMM [1.5-8.1 K/CMM] (10/06/14 10:25 AM) Lymphocytes # 1.6 K/CMM [1.0-5.5 K/CMM] (10/06/14 10:25 AM) Monocytes # [0.0-0.8 0.7 K/CMM K/CMM] (10/06/14 10:25 AM) Eosinophils # 0.1 K/CMM [0.0-0.5 K/CMM] (10/06/14 10:25 AM) Basophils # [0.0-0.2 0.1 K/CMM K/CMM] (10/06/14 10:25 AM) Immunizations No data available for this section [...]
--- OUTSIDE RECORDS SUMMARY | 2018-06-18 05:53 | XMS REPORT | Summary of Care ---
Author Author [facility] Organization [facility] Address Unknown Phone Unavailable Encounter [facility](FIN) [id number] Date(s): 12/13/17 - 12/13/17 [facility] [address] [place] [address]- Discharge Disposition: Home or Self Care Attending [...]
--- OUTSIDE RECORDS SUMMARY | 2018-06-18 05:53 | XMS REPORT | Summary of Care ---
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) - Atelectasis (Final) - Fatty (change of) liver, not elsewhere classified (Final) - Atherosclerotic heart disease of [place] coronary artery without angina pectoris (Final) - Functional disorders of polymorphonuclear neutrophils (Final) - Diverticulosis of large intestine without perforation or abscess without bleedin g (Final) - Acquired absence of both cervix and uterus (Final) - Collapsed vertebra, not elsewhere classified, thoracic region, initial encounter for fracture (Final) - Other specified disorders of bone density and structure, unspecified site (Final) - Other spondylosis, thoracic region (Final) - Unspecified atherosclerosis (Final) - Discharge Disposition: Home or Self Care Attending Physician: Gumaro Harp MD Referring Physician: Gumaro Harp MD Vital Signs No data available for this section Problem List Condition Effective Dates Status Health Status Informant 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 obstructive pulmonary disease(Confirmed) Deviated Resolved septum(Confirmed) Hypertension(Confirm Resolved ed) RA (rheumatoid Resolved arthritis)(Confirmed ) Allergies, Adverse Reactions, Alerts Substance Reaction Severity Status codeine Active Medications Omnipaque 300 100 mL, Route: IV, Drug Form: SOLN, ONCALL, Start date: 08/15/17 12:00:00 [employer]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
--- NOTE | 2018-06-18 08:40 | Operative Report ---
DATE OF PROCEDURE: June 18, 2018 PROCEDURE: Esophagogastroduodenoscopy. PREOPERATIVE DIAGNOSES 1. Dyspepsia. 2. Gastroesophageal reflux disease. 3. Abnormal upper GI. PROCEDURE: After informed written consent and premedications with monitored anesthesia care, the video gastroscope was introduced into the mouth, esophagus, stomach, and to the 2nd portion of the duodenum. The 1st and 2nd portion of the duodenum was normal. Antrum and body showed gastritis. Fundus appeared to be normal. Retroflexion revealed a very small hiatal hernia. The GE junction showed minimal irregularity, and biopsies were done. IMPRESSION 1. Hiatal hernia. 2. Gastritis. RECOMMENDATIONS: Check biopsies. GERD precautions. Advised to continue the Prilosec as needed. Further recommendations will be based on the patient's clinical course. Job#: [id number]
[2018-06-18 08:55] VITALS: BP 109/58
== END | disposition home or self-care (01) ==
LOC: OR 05:44
PROVIDERS: ATTEND Internal Medicine Gastroenterology
DX: K29.70 Gastritis, unspecified, without bleeding (principal); K44.9 Diaphragmatic hernia without obstruction or gangrene; R93.3 Abnormal findings on diagnostic imaging of other parts of digestive tract; K30 Functional dyspepsia; Z87.891 Personal history of nicotine dependence; E66.3 Overweight; Z68.29 Body mass index [BMI] 29.0-29.9, adult; Z71.3 Dietary counseling and surveillance; Z86.010 Personal history of colon polyps; K58.9 Irritable bowel syndrome, unspecified; M06.9 Rheumatoid arthritis, unspecified; G43.909 Migraine, unspecified, not intractable, without status migrainosus; Z88.5 Allergy status to narcotic agent; K21.9 Gastro-esophageal reflux disease without esophagitis; I71.4 Abdominal aortic aneurysm, without rupture; J44.9 Chronic obstructive pulmonary disease, unspecified; Z01.812 Encounter for preprocedural laboratory examination
CPT/HCPCS: 36415; 43239; 85025; 88305; 88312; 93005; J2001; J2704